=== PATIENT | female | born 1950 | race Caucasian/White ===

== ENCOUNTER → 2019-12-16 14:28 | Outpatient (BNVA) | payer MEDICARE, SELFPAY | PROVIDERS: PCP Internal Medicine; Referring Provider Internal Medicine; Visit Provider Internal Medicine | DX: R07.2 Precordial pain (principal); I10 Essential (primary) hypertension; E11.8 Type 2 diabetes mellitus with unspecified complications; E78.5 Hyperlipidemia, unspecified; J44.9 Chronic obstructive pulmonary disease, unspecified; Z79.899 Other long term (current) drug therapy | CPT/HCPCS: 99214 ==

== ENCOUNTER 2019-12-28 13:46 | Outpatient (REF) | payer MEDICARE, SELFPAY ==
[2019-12-28 15:13] LABS: Blood Urea Nitrogen 22 mg/dL (9-16); Estimated Glomerular Filt Rate > 60
== END 2019-12-28 13:47 | disposition home or self-care (01) ==
LOC: HO.LAB 13:46
PROVIDERS: PCP Internal Medicine; Visit Provider Otolaryngology
DX: H90.3 Sensorineural hearing loss, bilateral (principal); H93.A3 Pulsatile tinnitus, bilateral
CPT/HCPCS: 82565; 84520

== ENCOUNTER 2020-01-11 10:15 | Outpatient (REF) | payer MEDICARE, SELFPAY ==
--- NOTE | 2020-01-11 10:19 | CT_ITS ---
EXAMINATION: CT ANGIOGRAM BRAIN WITH CONTRAST CLINICAL INFORMATION: Sensorineural hearing loss, bilateral. COMPARISON: Head CTA 04/30/2011. TECHNIQUE: Test bolus sequences followed by intravenous administration 70 mL of Omnipaque 350. Helical imaging was performed in the axial plane from the skull base to the skull vertex. Delayed postcontrast imaging of the head was also performed. The data was processed at the electroencephalograph technologist workstation for generation of MIP sequences. Angled MIPs and volume rendered reformatted images were also generated at an offline 3D workstation. This CT examination was performed using dose optimization techniques as appropriate, variously including the following: *Automated exposure control *Adjustment of mA and/or kV according to patient size (this includes techniques or standardized protocols for targeted exams where dose is matched to indication/reason for exam; i.e. extremities or head) *Use of iterative reconstruction technique DLP: 2418 mGy-cm FINDINGS: Brain: There is no intracranial hemorrhage, extra-axial collection, mass effect, or territorial infarction. The ventricles are normal in size without evidence of hydrocephalus. No significant microangiopathy is seen. On the postcontrast images, no enhancing lesion is noted. The dural venous sinuses demonstrate normal opacification. The paranasal sinuses and mastoid air cells are clear. There is hypertrophic bone involving the right more than left internal auditory canals resulting in moderate to severe narrowing of the right IAC and mild narrowing of the left IAC. Head CTA: Mild atheromatous changes are seen at the bilateral carotid siphons. Both internal carotid arteries are patent. The anterior and middle cerebral arteries appear patent. The bilateral vertebral arteries and basilar artery appear patent. arts manager appear patent. A 2 mm infundibulum versus aneurysm is seen arising from the undersurface of the communicating segment of the right internal carotid artery best seen on series 12 image 85/148. No abnormal vessels are seen within the posterior fossa suggest the presence of a dural arteriovenous fistula. No enlarged ECA branch vessels are seen. CT/CT angio head IMPRESSION: No acute intracranial abnormality identified. No hemorrhage or infarction. Hypertrophic bone is seen involving the bilateral internal auditory canals with associated moderate to severe narrowing on the right and mild narrowing on the left. Normal appearance of the intracranial arteries without significant stenosis. 2 mm infundibulum versus aneurysm seen arising from the undersurface of the communicating segment of the right internal carotid artery.
[2020-01-11] MEDS: iohexoL 350 MG/ML 100 ML INFUS..BTL 70 ML IV (11:58)
== END 2020-01-11 10:16 | disposition home or self-care (01) ==
LOC: HO.CT 10:15
PROVIDERS: PCP Internal Medicine; Visit Provider Otolaryngology
DX: H90.3 Sensorineural hearing loss, bilateral (principal); H93.A3 Pulsatile tinnitus, bilateral
CPT/HCPCS: 70496; Q9967

== ENCOUNTER 2020-01-23 17:24 | Emergency (ER) | payer MEDICARE, SELFPAY ==
[2020-01-23 19:02] VITALS: BP 166/70; PULSE 84; RESP 16; TEMP 37.1; O2SAT 100; BMI 39.1
--- NOTE | 2020-01-23 19:43 | ED.EAR ---
HPI - Ear Problem General Chief complaint: Animal Bite Stated complaint: tick in ear Time Seen by Provider: 01/23/20 19:43 Source: patient Mode of arrival: ambulatory Limitations: no limitations History of Present Illness HPI Narrative: Outside work she has slight discomfort in her right ear question she got a piece of wood or a tick in there here for a check. No discomfort at this time. No discharge. No fever. No headache. No rash or swelling. Treatment prior to arrival: none Related Data Home Medications Medication Instructions Recorded Confirmed cholecalciferol (vitamin D3) 50 50 mcg PO DAILY 12/16/19 12/16/19 mcg (2,000 unit) capsule dulaglutide 1.5 mg/0.5 mL mg SUBCUT 12/16/19 12/16/19 subcutaneous pen injector levothyroxine 112 mcg tablet 112 mcg PO DAILY 12/16/19 12/16/19 lisinopril 40 mg tablet 40 mg PO DAILY 12/16/19 12/16/19 metformin 500 mg tablet,extended 1,000 mg PO BID 12/16/19 12/16/19 release 24 hr simvastatin 5 mg tablet 5 mg PO BEDTIME 12/16/19 12/16/19 tiotropium bromide 18 mcg capsule 1 cap INHALATION DAILY 12/16/19 12/16/19 with inhalation device Previous Rx's Medication Instructions Recorded amlodipine 10 mg tablet 10 mg PO DAILY 90 Days #90 tab 01/18/20 Allergies Allergy/AdvReac Type Severity Reaction Status Date / Time codeine [CODEINE] Allergy Unknown NAUSEA & Verified 12/16/19 14:52 VOMITING morphine Allergy Unknown UNKNOWN Verified 12/16/19 14:52 oxycodone [OxyContin] Allergy Unknown UNKNOWN Verified 12/16/19 14:52 Review of Systems Review of Systems: Constitutional: No Weight loss, No Fever, No Chills, No Night Sweats, No Fatigue, No Malaise ENT/Mouth: No Hearing loss, No Ear Pain, No Nasal Congestion, No Sinus Pain, No Hoarseness, No sore throat, No Rhinorrhea, No Swallowing Difficulty Eyes: No Eye Pain, No Swelling, No Redness, No Foreign Body, No Discharge, No Vision Changes Cardiovascular: No Chest Pain, No SOB, No Dyspnea on Exertion, No Orthopnea, No Edema, No Palpitations Respiratory: No Cough, No Sputum, No Wheezing, No Smoke Exposure, No Dyspnea Gastrointestinal: No Nausea, No Vomiting, No Diarrhea, No Constipation, No abdominal Pain, No Hematochezia, No Melena Skin: No Skin Lesions, No rash Neuro: No Weakness, No Numbness, No Paresthesias, No Loss of Consciousness, No Dizziness, No Headache Psych: No Anxiety/Panic Heme/Lymph: No Bruising, No Bleeding,No Lymphadenopathy Endocrine: No Polyuria, No Polydipsia, No Temperature Intolerance Yes all other systems are reviewed and are negative PMFSH Past Medical History Medical History (Updated 01/23/20 @ 19:47 by Bright Christensen NP) Chronic obstructive pulmonary disease, unspecified Essential hypertension Other and unspecified hyperlipidemia Precordial chest pain Type 2 diabetes mellitus with unspecified complications Surgical History History of section History of hysterectomy History of thyroidectomy Family History Family History Father No problems noted. Mother No problems noted. Social History Social History Alcohol intake: never Smoking Status: Never smoker Smoked in Last 30 Days: No Use of substances other than those prescribed or required for medical reasons: No Advance Directives: No Advance Directives Information Provided: Yes Physical Exam Vital Signs: Vital Signs: Last Vital Signs Temp 98.7 F 01/23/20 19:02 Pulse 84 01/23/20 19:02 Resp 16 01/23/20 19:02 BP 166/70 H 01/23/20 19:02 Pulse Ox 100 01/23/20 19:02 Body Mass Index 39.1 Reviewed Const: General: cooperative and healthy appearing; No acute distress or intoxicated appearing Nutritional Appearance: average body habitus Orientation/consciousness: patient oriented x3 HENMT: Head: Yes normal to inspection Ears: hearing grossly normal bilaterally Eyes: General: appearance normal, both eyes and all related structures Visual Cabrera: normal visual cabrera by confrontation Neck: Neck: Yes normal visual inspection and No tender Thyroid: Thyroid normal Chest: Chest palpation & inspection: normal inspection of the chest Resp: Effort & Inspection: normal respiratory effort Neuro: General: patient oriented x3 Extrem: General: Yes normal to inspection Course Course Course Narrative: No acute infection of the ear, no foreign body. Discharge Plan Discharge Clinical Impression: Acute otalgia, Normal exam Patient Disposition: Home, Self-Care Instructions: Earache (ED) Prescriptions: No Action amlodipine 10 mg tablet 10 mg PO DAILY 90 Days Qty: 90 RF: 1 metformin 500 mg tablet extended release 24 hr 1,000 mg PO BID RF: 0 Trulicity 1.5 mg/0.5 mL pen injector subcut RF: 0 Spiriva with HandiHaler 18 mcg capsule, w/inhalation device 1 cap inhalation DAILY RF: 0 levothyroxine 112 mcg tablet 112 mcg PO DAILY RF: 0 lisinopril 40 mg tablet 40 mg PO DAILY RF: 0 simvastatin 5 mg tablet 5 mg PO BEDTIME RF: 0 cholecalciferol (vitamin D3) 50 mcg (2,000 unit) capsule 50 mcg PO DAILY RF: 0 Referrals: Giovanni Burnette MD [Primary Care Provider] - 1 week
== END 2020-01-23 19:54 | disposition home or self-care (01) ==
PROVIDERS: Emergency Provider Internal Medicine; PCP Internal Medicine
DX: H92.01 Otalgia, right ear (principal); I10 Essential (primary) hypertension; Z79.899 Other long term (current) drug therapy
CPT/HCPCS: 99282; 99284

== ENCOUNTER 2020-03-08 09:03 | Outpatient (REF) | payer MEDICARE, SELFPAY ==
[2020-03-08 10:03] LABS: MANUAL DIFF FLAG NO
[2020-03-08 10:07] LABS: Basophils Absolute Auto 0.1 X10*3/uL (0.0-0.2); Basophils Percent Auto 0.7 % (0-2); Eosinophils Absolute Auto 0.3 X10*3/uL (0.0-0.4); Eosinophils Percent Auto 3.2 % (0-4); Hematocrit 39.9 % (37-47); Hemoglobin 12.9 g/dl (12.0-16.0); Imm Gran Abs Auto 0.04 X10*3/uL (0.00-0.03); Imm Gran Pct Auto 0.4 % (0.0-0.4); Lymphocytes Absolute Auto 2.6 X10*3/uL (1.2-4.9); Lymphocytes Percent Auto 27.9 % (20-40); Mean Corpuscular HGB Conc 32.3 g/dl (31.0-35.0); Mean Corpuscular Volume 83.6 fL (80-98); Mean Platelet Volume 10.1 fL (9.4-12.3); Monocytes Absolute Auto 0.4 X10*3/uL (0.1-1.2); Monocytes Percent Auto 4.7 % (2-11); Neutrophils Absolute Auto 5.8 X10*3/uL (2.0-8.3); Neutrophils Percent Auto 63.1 % (45-73); Platelet Count 345 X10*3/uL (160-400); Red Blood Count 4.77 X10*6/uL (4.20-5.50); White Blood Count 9.2 X10*3/uL (4.8-10.8)
[2020-03-08 10:14] LABS: Estimated Average Glucose 140 mg/dL; Hemoglobin A1c % 6.5 %
[2020-03-08 10:36] LABS: Creatinine Urine 92.83 mg/dL; Glucose Urine UA NEG (NEG); Leukocyte Esterase Urine NEG (NEG); Nitrite Urine NEG (NEG); PH 6.5 (5.0-8.0); Specific Gravity - Urine 1.025 (1.005-1.025); Urine Blood NEG (NEG); Urine Ketones NEG (NEG); Urine Protein NEG (NEG-TRACE)
[2020-03-08 10:46] LABS: Alanine Aminotransferase 25 U/L (0-31); Albumin Level 4.4 g/dL (3.5-5.0); Alkaline Phosphatase 70 U/L (39-117); Anion Gap 14 (12-20); Aspartate Amino Transferase 14 U/L (5-31); Bilirubin Total 0.4 mg/dL (0.0-1.0); Blood Urea Nitrogen 19 mg/dL (9-16); Calcium 9.3 mg/dL (8.4-10.2); Carbon Dioxide 23 mmol/L (22-29); Chloride 106 mmol/L (96-108); Cholesterol 155 mg/dL; Estimated Glomerular Filt Rate > 60; Glucose Fasting 133 mg/dL (60-99); HDL Cholesterol 46 mg/dL; LDL Cholesterol Calculated 94 mg/dl; Potassium 4.6 mmol/l (3.3-5.1); Sodium 138 mmol/L (135-145); Total Protein 6.7 g/dL (6.5-8.0); Triglycerides 78 mg/dL
[2020-03-08 10:48] LABS: Appearance Urine CLEAR; Color Urine YELLOW
[2020-03-08 10:57] LABS: Free T4 (Free Thyroxine) 1.18 ng/dL (0.71-1.85); Thyroid Stimulating Hormone 1.36 uIU/mL (0.32-4.0)
[2020-03-08 11:05] LABS: RBC Urine 0 /HPF (0); Squamous Epithelial Cell Urine 1+ /LPF; WBC Urine 0-2 /HPF (0-4)
== END 2020-03-08 09:04 | disposition home or self-care (01) ==
LOC: HO.10HDL 09:03
PROVIDERS: PCP Internal Medicine; Visit Provider Internal Medicine
DX: E11.9 Type 2 diabetes mellitus without complications (principal); E78.00 Pure hypercholesterolemia, unspecified; I10 Essential (primary) hypertension; E03.9 Hypothyroidism, unspecified; Z85.850 Personal history of malignant neoplasm of thyroid; E66.9 Obesity, unspecified; J44.9 Chronic obstructive pulmonary disease, unspecified; M85.80 Other specified disorders of bone density and structure, unspecified site; E55.9 Vitamin D deficiency, unspecified
CPT/HCPCS: 36415; 80053; 80061; 81001; 82043; 82306; 83036; 84439; 84443; 85025

== ENCOUNTER → 2020-03-21 12:53 | Outpatient (BNVA) | payer MEDICARE, SELFPAY | PROVIDERS: PCP Internal Medicine; Visit Provider Internal Medicine | DX: R07.2 Precordial pain (principal); I10 Essential (primary) hypertension; E11.8 Type 2 diabetes mellitus with unspecified complications; E78.5 Hyperlipidemia, unspecified; J44.9 Chronic obstructive pulmonary disease, unspecified | CPT/HCPCS: 99212 ==

== ENCOUNTER 2020-04-07 08:30 | Outpatient (REF) | payer MEDICARE, SELFPAY ==
[2020-04-07 10:38] LABS: Alanine Aminotransferase 15 U/L (0-31); Albumin Level 4.3 g/dL (3.5-5.0); Alkaline Phosphatase 64 U/L (39-117); Anion Gap 15 (12-20); Aspartate Amino Transferase 11 U/L (5-31); Bilirubin Total 0.5 mg/dL (0.0-1.0); Blood Urea Nitrogen 18 mg/dL (9-16); Calcium 9.1 mg/dL (8.4-10.2); Carbon Dioxide 23 mmol/L (22-29); Chloride 107 mmol/L (96-108); Cholesterol 139 mg/dL; Estimated Glomerular Filt Rate > 60; Glucose Fasting 129 mg/dL (60-99); HDL Cholesterol 35 mg/dL; LDL Cholesterol Calculated 81 mg/dl; Potassium 4.5 mmol/L (3.3-5.1); Sodium 140 mmol/L (135-145); Total Protein 6.6 g/dL (6.5-8.0); Triglycerides 116 mg/dL
[2020-04-07 10:48] LABS: Thyroid Stimulating Hormone 0.92 uIU/mL (0.32-4.0); Vitamin D 25-OH Total 46.3 ng/mL (>30)
[2020-04-07 10:58] LABS: Creatinine Urine 106.56 mg/dL; Microalbum/Creatinine Ratio Ur 11.2 ug/mg cr
[2020-04-08 04:07] LABS: LDL Cholesterol Direct 85 mg/dL (<100)
[2020-04-13 06:22] LABS: Thyroglobulin Antibody <1 IU/mL (<=1); Thyroglobulin Level 4.1 ng/mL
== END 2020-04-07 08:31 | disposition home or self-care (01) ==
LOC: HO.10HDL 08:30
PROVIDERS: Visit Provider Internal Medicine Endocrinology, Diabetes & Metabolism
DX: E11.9 Type 2 diabetes mellitus without complications (principal); C73 Malignant neoplasm of thyroid gland; M85.88 Other specified disorders of bone density and structure, other site
CPT/HCPCS: 36415; 80053; 80061; 82043; 82306; 83721; 84432; 84439; 84443; 86800

== ENCOUNTER → 2020-04-13 07:32 | Outpatient (BNVA) | payer MEDICARE, SELFPAY | PROVIDERS: PCP Internal Medicine; Visit Provider Internal Medicine Endocrinology, Diabetes & Metabolism | DX: E11.9 Type 2 diabetes mellitus without complications (principal); E89.0 Postprocedural hypothyroidism; E78.00 Pure hypercholesterolemia, unspecified; E55.9 Vitamin D deficiency, unspecified; E66.9 Obesity, unspecified; M85.89 Other specified disorders of bone density and structure, multiple sites; I10 Essential (primary) hypertension; Z85.850 Personal history of malignant neoplasm of thyroid | CPT/HCPCS: 82947; 99212 ==

== ENCOUNTER 2020-09-09 14:22 | Outpatient (REF) | payer MEDICARE, SELFPAY ==
--- NOTE | ~2020-09-09 | US_ITS ---
EXAMINATION: US THYROID CLINICAL INFORMATION: Malignant neoplasm of thyroid COMPARISON: Ultrasound thyroid soft tissue neck 07/17/2019 TECHNIQUE: Linear transducer grayscale and color Doppler examination with attention to the region of the thyroid. FINDINGS: SIZE: Measurements of the thyroid lobes and nodules are given in sagittal, anteroposterior and transverse dimensions respectively. Right Thyroid Lobe: Right thyroid lobe has been removed. Left Thyroid Lobe: 3.6 x 1.4 x 0.96 cm, volume 2.6 mL. Previously it measured 2.2 x 1.0 x 1.3 cm and 1.4 mL volume. Parenchyma: The gland echotexture is heterogeneous. Thyroid vascularity is normal. Isthmus: 0.27 cm in maximum AP dimension. Estimated total number of nodules greater than or equal to 1 cm: 0. Enterprise Security Architect nodules are described as follows: 1. Location: [Left Midpole. Size: 1.1 x 0.82 x 0.76 cm, volume 0.36 mL. Previously measured 0.90 x 0.70 x 0.70 cm and 0.23 mL volume. Nodule characteristics: Composition: Mixed cystic and solid (1). Echogenicity: Hypoechoic Shape: Wider Margins: Smooth (0). Echogenic Foci: None (0). ACR TI-RADS total points: 4 ACR TI-RADS category: 4 2. Location: Midpole. Size: 0.95 x 0.68 x 0.59 cm, volume 0.20 mL. Previously not visualized. Nodule characteristics: Composition: Mixed cystic and solid (1). Echogenicity: Undermined Shape: Wider Margins: Smooth (0). Echogenic Foci: None (0). ACR TI-RADS total points: 2 ACR TI-RADS category: 2 NODES: No lymphadenopathy is seen in the tissue surrounding the thyroid gland. US/US thyroid IMPRESSION: Subcentimeter thyroid nodules as described above. One of the midpole nodules is stable and a second nodule subcentimeter is new. Recommend continued follow-up. ACR TI-RADS RECOMMENDATION REFERENCE: Ultrasound-guided fine-needle aspiration, followup ultrasound, no further follow up. * TR1 (0 point) and TR 2 (2 points): No FNA or follow up * TR3 (3 points): FNA if more than or equal to 2.5 cm in maximum dimension, followup ultrasound in 1, 3 and 5 years if 1.5 to 2.4 cm in maximum dimension. * TR4 (4-6 points): FNA if more than or equal to 1.5 cm in maximum dimension, followup ultrasound in 1, 2, 3 and 5 years if 1 to 1.4 cm in maximum dimension. * TR5 (more than or equal to 7 points): FNA if more than or equal to 1 cm in maximum dimension, followup ultrasound every year for 5 years if 0.5 to 0.9 cm in maximum dimension. * TR3, TR4 or TR5 nodules that are below the size threshold for follow up receive no follow up.
== END 2020-09-09 14:23 | disposition home or self-care (01) ==
LOC: HO.HMGCX 14:22
PROVIDERS: PCP Internal Medicine; Visit Provider Internal Medicine Endocrinology, Diabetes & Metabolism
DX: Z85.850 Personal history of malignant neoplasm of thyroid (principal)
CPT/HCPCS: 76536

== ENCOUNTER 2020-09-16 08:25 | Outpatient (REF) | payer MEDICARE, SELFPAY ==
[2020-09-16 10:01] LABS: Free T4 (Free Thyroxine) 1.28 ng/dL (0.71-1.85); Thyroid Stimulating Hormone 0.78 uIU/mL (0.32-4.0)
[2020-09-20 01:02] LABS: Thyroglobulin Antibody <1 IU/mL (<=1)
[2020-09-20 04:51] LABS: Thyroglobulin Level 3.9 ng/mL
== END 2020-09-16 08:26 | disposition home or self-care (01) ==
LOC: HO.LAB 08:25
PROVIDERS: Internal Medicine Endocrinology, Diabetes & Metabolism; PCP Internal Medicine; Visit Provider Internal Medicine
DX: Z85.850 Personal history of malignant neoplasm of thyroid (principal)
CPT/HCPCS: 36415; 84432; 84439; 84443; 86800

== ENCOUNTER → 2020-09-19 08:09 | Outpatient (BNVA) | payer MEDICARE, SELFPAY | PROVIDERS: PCP Internal Medicine; Visit Provider Internal Medicine Endocrinology, Diabetes & Metabolism | DX: E11.9 Type 2 diabetes mellitus without complications (principal); E89.0 Postprocedural hypothyroidism; E78.00 Pure hypercholesterolemia, unspecified; E55.9 Vitamin D deficiency, unspecified; E66.9 Obesity, unspecified; I10 Essential (primary) hypertension; M85.89 Other specified disorders of bone density and structure, multiple sites; Z85.850 Personal history of malignant neoplasm of thyroid | CPT/HCPCS: 82947; 99212 ==

== ENCOUNTER 2020-09-27 09:11 | Outpatient (REF) | payer MEDICARE, SELFPAY ==
[2020-09-27 10:12] LABS: Glucose Urine UA NEG (NEG); Leukocyte Esterase Urine NEG (NEG); Nitrite Urine NEG (NEG); PH 6.5 (5.0-8.0); Urine Blood NEG (NEG); Urine Ketones NEG (NEG); Urine Protein NEG (NEG-TRACE)
[2020-09-27 10:13] LABS: Appearance Urine CLEAR; Color Urine YELLOW
[2020-09-27 10:17] LABS: MANUAL DIFF FLAG NO
[2020-09-27 10:26] LABS: Basophils Absolute Auto 0.1 X10*3/uL (0.0-0.2); Basophils Percent Auto 0.6 % (0-2); Eosinophils Absolute Auto 0.2 X10*3/uL (0.0-0.4); Eosinophils Percent Auto 2.1 % (0-4); Hematocrit 38.5 % (37-47); Hemoglobin 12.3 g/dl (12.0-16.0); Imm Gran Abs Auto 0.07 X10*3/uL (0.00-0.03); Imm Gran Pct Auto 0.7 % (0.0-0.4); Lymphocytes Absolute Auto 2.7 X10*3/uL (1.2-4.9); Lymphocytes Percent Auto 27.3 % (20-40); Mean Corpuscular HGB Conc 31.9 g/dl (31.0-35.0); Mean Corpuscular Hemoglobin 26.5 pg (27.0-33.0); Mean Corpuscular Volume 82.8 fL (80-98); Mean Platelet Volume 10.3 fL (9.4-12.3); Monocytes Absolute Auto 0.5 X10*3/uL (0.1-1.2); Monocytes Percent Auto 4.9 % (2-11); Neutrophils Absolute Auto 6.4 X10*3/uL (2.0-8.3); Neutrophils Percent Auto 64.4 % (45-73); Platelet Count 316 X10*3/uL (160-400); Red Blood Count 4.65 X10*6/uL (4.20-5.50); Red Cell Distribution Width 14.2 % (11.0-16.0); White Blood Count 9.9 X10*3/uL (4.8-10.8)
[2020-09-27 10:40] LABS: Anion Gap 11 (12-20); Blood Urea Nitrogen 17 mg/dL (9-16); Calcium 9.1 mg/dL (8.4-10.2); Carbon Dioxide 24 mmol/L (22-29); Chloride 108 mmol/L (96-108); Cholesterol 146 mg/dL; Estimated Glomerular Filt Rate > 60; Glucose Fasting 140 mg/dL (60-99); HDL Cholesterol 42 mg/dL; LDL Cholesterol Calculated 85 mg/dl; Potassium 4.3 mmol/L (3.3-5.1); Sodium 139 mmol/L (135-145); Triglycerides 98 mg/dL
[2020-09-27 10:51] LABS: Creatinine Urine 87.87 mg/dL; Microalbum/Creatinine Ratio Ur 10.2 ug/mg cr
[2020-09-27 10:56] LABS: RBC Urine 0-2 /HPF (0); Renal Epithelial Cells Urine TRACE /LPF; Squamous Epithelial Cell Urine 1+ /LPF; WBC Urine 0-2 /HPF (0-4)
[2020-09-27 11:04] LABS: TSH reflex Free T4 0.89 uIU/mL (0.32-4.0)
== END 2020-09-27 09:12 | disposition home or self-care (01) ==
LOC: HO.LAB 09:11
PROVIDERS: PCP Internal Medicine; Visit Provider Internal Medicine
DX: E89.0 Postprocedural hypothyroidism (principal); E11.8 Type 2 diabetes mellitus with unspecified complications; E78.00 Pure hypercholesterolemia, unspecified; I10 Essential (primary) hypertension; E78.5 Hyperlipidemia, unspecified
CPT/HCPCS: 36415; 80048; 80061; 81001; 82043; 84443; 85025

== ENCOUNTER 2021-01-25 08:27 | Outpatient (REF) | payer MEDICARE, SELFPAY ==
[2021-01-25 10:14] LABS: MANUAL DIFF FLAG NO
[2021-01-25 10:25] LABS: Basophils Absolute Auto 0.1 X10*3/uL (0.0-0.2); Basophils Percent Auto 0.7 % (0-2); Eosinophils Absolute Auto 0.3 X10*3/uL (0.0-0.4); Eosinophils Percent Auto 3.5 % (0-4); Hematocrit 37.8 % (37.0-47.0); Hemoglobin 12.2 g/dl (12.0-16.0); Imm Gran Abs Auto 0.04 X10*3/uL (0.00-0.03); Imm Gran Pct Auto 0.5 % (0.0-0.4); Lymphocytes Absolute Auto 2.8 X10*3/uL (1.2-4.9); Lymphocytes Percent Auto 32.5 % (20-40); Mean Corpuscular HGB Conc 32.3 g/dl (31.0-35.0); Mean Corpuscular Hemoglobin 26.5 pg (27.0-33.0); Mean Corpuscular Volume 82.2 fL (80.0-98.0); Monocytes Absolute Auto 0.4 X10*3/uL (0.1-1.2); Neutrophils Absolute Auto 4.9 x10*3/uL (2.0-8.3); Neutrophils Percent Auto 57.8 % (45-73); Platelet Count 297 X10*3/uL (160-400); White Blood Count 8.5 X10*3/uL (4.8-10.8)
[2021-01-25 10:28] LABS: Appearance Urine CLEAR; Color Urine YELLOW; Glucose Urine UA NEG (NEG); Leukocyte Esterase Urine NEG (NEG); Nitrite Urine NEG (NEG); PH 5.5 (5.0-8.0); Specific Gravity - Urine 1.025 (1.005-1.025); Urine Blood NEG (NEG); Urine Ketones NEG (NEG); Urine Protein NEG (NEG-TRACE)
[2021-01-25 10:53] LABS: Estimated Average Glucose 143 mg/dL; Hemoglobin A1c % 6.6 %
[2021-01-25 10:57] LABS: Creatinine Urine 98.65 mg/dL; Microalbum/Creatinine Ratio Ur 12.1 ug/mg cr
[2021-01-25 11:02] LABS: Alanine Aminotransferase 17 U/L (0-31); Albumin Level 4.2 g/dL (3.5-5.0); Alkaline Phosphatase 65 U/L (39-117); Anion Gap 11 (12-20); Aspartate Amino Transferase 13 U/L (5-31); Bilirubin Total 0.4 mg/dL (0.0-1.0); Blood Urea Nitrogen 17 mg/dL (9-16); Calcium 9.3 mg/dL (8.4-10.2); Carbon Dioxide 23 mmol/L (22-29); Chloride 109 mmol/L (96-108); Cholesterol 127 mg/dL; Estimated Glomerular Filt Rate > 60; Glucose Fasting 124 mg/dL (60-99); HDL Cholesterol 33 mg/dL; LDL Cholesterol Calculated 74 mg/dl; Potassium 4.2 mmol/L (3.3-5.1); Sodium 139 mmol/L (135-145); Total Protein 6.5 g/dL (6.5-8.0); Triglycerides 102 mg/dL
[2021-01-25 11:18] LABS: Free T4 (Free Thyroxine) 1.27 ng/dL (0.71-1.85); Thyroid Stimulating Hormone 0.89 uIU/mL (0.32-4.0); Vitamin D 25-OH Total 44.8 ng/mL (>30)
== END 2021-01-25 08:28 | disposition home or self-care (01) ==
LOC: HO.10HDL 08:27
PROVIDERS: Visit Provider Internal Medicine
DX: E03.9 Hypothyroidism, unspecified (principal); E55.9 Vitamin D deficiency, unspecified; E78.00 Pure hypercholesterolemia, unspecified; I10 Essential (primary) hypertension; E11.9 Type 2 diabetes mellitus without complications
CPT/HCPCS: 36415; 80053; 80061; 81003; 82043; 82306; 83036; 84439; 84443; 85025

== ENCOUNTER 2021-02-16 13:18 | Outpatient (REF) | payer MEDICARE, SELFPAY ==
[2021-02-18 04:57] LABS: Lyme Abs Screen <0.90 index
== END 2021-02-16 13:19 | disposition home or self-care (01) ==
LOC: HO.LAB 13:18
PROVIDERS: PCP Internal Medicine; Visit Provider Nurse Practitioner Family
DX: S30.860A Insect bite (nonvenomous) of lower back and pelvis, initial encounter (principal); W57.XXXA Bitten or stung by nonvenomous insect and other nonvenomous arthropods, initial encounter
CPT/HCPCS: 36415; 86617; 86618

== ENCOUNTER → 2021-04-11 09:24 | Outpatient (BNVA) | payer MEDICARE, SELFPAY | PROVIDERS: PCP Internal Medicine; Referring Provider Internal Medicine; Visit Provider Internal Medicine | DX: R07.2 Precordial pain (principal); I10 Essential (primary) hypertension; E11.8 Type 2 diabetes mellitus with unspecified complications; E78.5 Hyperlipidemia, unspecified; E66.01 Morbid (severe) obesity due to excess calories; Z68.38 Body mass index [BMI] 38.0-38.9, adult | CPT/HCPCS: 93005; 99212 ==

== ENCOUNTER 2021-05-26 09:52 | Outpatient (REF) | payer MEDICARE, SELFPAY ==
[2021-05-26 10:20] LABS: MANUAL DIFF FLAG NO
[2021-05-26 10:59] LABS: Basophils Absolute Auto 0.1 X10*3/uL (0.0-0.2); Basophils Percent Auto 0.6 % (0-2); Eosinophils Absolute Auto 0.2 X10*3/uL (0.0-0.4); Eosinophils Percent Auto 1.8 % (0-4); Hematocrit 40.5 % (37.0-47.0); Hemoglobin 12.7 g/dl (12.0-16.0); Imm Gran Abs Auto 0.04 X10*3/uL (0.00-0.03); Imm Gran Pct Auto 0.4 % (0.0-0.4); Lymphocytes Absolute Auto 2.9 X10*3/uL (1.2-4.9); Lymphocytes Percent Auto 32.4 % (20-40); Mean Corpuscular HGB Conc 31.4 g/dl (31.0-35.0); Mean Corpuscular Hemoglobin 26.3 pg (27.0-33.0); Mean Platelet Volume 10.3 fL (9.4-12.3); Monocytes Absolute Auto 0.5 X10*3/uL (0.1-1.2); Monocytes Percent Auto 5.3 % (2-11); Neutrophils Absolute Auto 5.4 x10*3/uL (2.0-8.3); Neutrophils Percent Auto 59.5 % (45-73); Platelet Count 331 X10*3/uL (160-400); Red Blood Count 4.82 X10*6/uL (4.20-5.50); Red Cell Distribution Width 14.1 % (11.0-16.0); White Blood Count 9.1 X10*3/uL (4.8-10.8)
[2021-05-26 11:41] LABS: Estimated Average Glucose 154 mg/dL
[2021-05-26 11:46] LABS: Appearance Urine CLEAR; Color Urine YELLOW; Glucose Urine UA NEG (NEG); Leukocyte Esterase Urine NEG (NEG); Nitrite Urine NEG (NEG); Urine Blood NEG (NEG); Urine Ketones NEG (NEG); Urine Protein NEG (NEG-TRACE)
[2021-05-26 12:21] LABS: Free T4 (Free Thyroxine) 1.38 ng/dL (0.71-1.85); Vitamin D 25-OH Total 46.9 ng/mL (>30)
[2021-05-26 12:33] LABS: Alanine Aminotransferase 18 U/L (0-31); Albumin Level 4.3 g/dL (3.5-5.0); Alkaline Phosphatase 71 U/L (39-117); Anion Gap 14 (12-20); Aspartate Amino Transferase 13 U/L (5-31); Bilirubin Total 0.7 mg/dL (0.0-1.0); Blood Urea Nitrogen 15 mg/dL (9-16); Calcium 9.6 mg/dL (8.4-10.2); Carbon Dioxide 23 mmol/L (22-29); Chloride 107 mmol/L (96-108); Cholesterol 142 mg/dL; Estimated Glomerular Filt Rate > 60; Glucose Fasting 130 mg/dL (60-99); HDL Cholesterol 39 mg/dL; LDL Cholesterol Calculated 86 mg/dl; Potassium 4.8 mmol/L (3.3-5.1); Sodium 139 mmol/L (135-145); Total Protein 6.7 g/dL (6.5-8.0); Triglycerides 89 mg/dL
[2021-05-26 12:46] LABS: Creatinine Urine 103.09 mg/dL; Microalbum/Creatinine Ratio Ur 9.7 ug/mg cr
[2021-05-26 13:03] LABS: Thyroid Stimulating Hormone 0.81 uIU/mL (0.32-4.0)
== END 2021-05-26 09:53 | disposition home or self-care (01) ==
LOC: HO.LAB 09:52
PROVIDERS: PCP Internal Medicine; Visit Provider Internal Medicine
DX: E03.9 Hypothyroidism, unspecified (principal); E78.00 Pure hypercholesterolemia, unspecified; E11.9 Type 2 diabetes mellitus without complications; E55.9 Vitamin D deficiency, unspecified; I10 Essential (primary) hypertension
CPT/HCPCS: 36415; 80053; 80061; 81003; 82043; 82306; 83036; 84439; 84443; 85025

== ENCOUNTER 2021-06-15 09:30 | Outpatient (REF) | payer MEDICARE, SELFPAY ==
--- NOTE | ~2021-06-15 | MM_ITS ---
EXAMINATION: BONE DENSITOMETRY CLINICAL INDICATION: Menopausal female climacteric states. COMPARISON: Previous BD dated 03/05/2019 and baseline BD dated 11/18/2015. TECHNIQUE: Using a Keynoir DXA System (software version: 13.1) manufactured by [employer], dual-energy x-ray absorptiometry was performed of the lumbar spine and left hip. The images are of good technical quality. Summary results are attached. FINDINGS: AP SPINE L1-L4: Current: BMD 0.992 g/cm2, Z-score -0.8, T-score -1.6, osteopenia, 1.0% increase from previous, 7.8% increase from baseline (<5% change is not significant). Prior: BMD 0.982 g/cm2. Baseline: BMD 0.920 g/cm2. LEFT FEMUR, NECK: Current: BMD 0.816 g/cm2, Z-score -0.4, T-score -1.6, osteopenia. Prior: BMD 0.847 g/cm2. Baseline: BMD 0.897 g/cm2. LEFT FEMUR, TOTAL: Current: BMD 0.961 g/cm2, Z-score 0.6, T-score -0.4, normal, 5.1% decrease from previous, 5.6% decrease from baseline (<5% change is not significant). Prior: BMD 1.013 g/cm2. Baseline: BMD 1.018 g/cm2. IDENTIFIED RISK FACTORS: Osteoporosis, height loss, low calcium intake, family history (parental hip fracture), menopause, hysterectomy, bilateral oophorectomy. HISTORY OF FRACTURE: None listed. MEDICATIONS: Vitamin D. MM/XR DEXA axial skeleton IMPRESSION: 1. DIAGNOSIS: Osteopenia based on the lowest T-score value of -1.6 in the femoral neck and lumbar spine applying World Health Organization criteria. 2. 10-YEAR FRACTURE RISK PREDICTION, FRAX: Major osteoporotic fracture (clinical spine, forearm, hip or shoulder) 15.2%. Hip fracture 4.7%. 3. Treatment Recommendations: NOF guidelines recommend consideration for treatment in postmenopausal women and men age 50 and older presenting with the following: -A hip or vertebral (clinical or morphometric) fracture. -T-score less than or equal to -2.5 at the femoral neck or spine after appropriate evaluation to exclude secondary causes. -Low bone mass at the hip or spine and a 10-year fracture probability by FRAX of greater than or equal to 3% for hip fracture or greater than or equal to 20% for major osteoporotic fracture based on the [place] adapted WHO algorithm. 4. Other Recommendations: All treatment decisions require clinical judgment and consideration of individual patient factors, including patient preferences, comorbidities, previous drug use, risk factors not captured in the FRAX model (e.g. frailty, falls, vitamin D deficiency, increased bone turnover, interval significant decline in bone density) and possible under or overestimation of fracture risk by FRAX. Additional medical evaluation for secondary cause of low bone mineral density may be appropriate. FUTURE SCAN RECOMMENDATION: People with diagnosed cases of osteoporosis or at high risk for fracture should have regular bone mineral density tests. For patients eligible for Medicare, routine testing is allowed once every 2 years. The testing frequency can be increased to one year for patients who have rapidly progressing disease, those who are receiving or discontinuing medical therapy to restore bone mass, or have additional risk factors.
== END 2021-06-15 09:31 | disposition home or self-care (01) ==
LOC: HO.MAMMO 09:30
PROVIDERS: PCP Internal Medicine; Visit Provider Internal Medicine
DX: Z13.820 Encounter for screening for osteoporosis (principal); Z78.0 Asymptomatic menopausal state; M85.89 Other specified disorders of bone density and structure, multiple sites; Z79.83 Long term (current) use of bisphosphonates
CPT/HCPCS: 77080

== ENCOUNTER → 2021-07-26 10:53 | Outpatient (BNVA) | payer MEDICARE, SELFPAY | PROVIDERS: PCP Internal Medicine; Visit Provider Internal Medicine Endocrinology, Diabetes & Metabolism | DX: E11.8 Type 2 diabetes mellitus with unspecified complications (principal); Z85.850 Personal history of malignant neoplasm of thyroid | CPT/HCPCS: 82947; 99212 ==

== ENCOUNTER 2021-09-08 06:39 | Outpatient (REF) | payer MEDICARE, SELFPAY ==
[2021-09-08 06:58] LABS: MANUAL DIFF FLAG NO
[2021-09-08 07:12] LABS: Basophils Absolute Auto 0.1 X10*3/uL (0.0-0.2); Basophils Percent Auto 0.7 % (0-2); Eosinophils Absolute Auto 0.2 X10*3/uL (0.0-0.4); Eosinophils Percent Auto 2.3 % (0-4); Hematocrit 38.3 % (37.0-47.0); Hemoglobin 12.2 g/dl (12.0-16.0); Imm Gran Abs Auto 0.03 X10*3/uL (0.00-0.03); Imm Gran Pct Auto 0.3 % (0.0-0.4); Lymphocytes Absolute Auto 2.9 X10*3/uL (1.2-4.9); Lymphocytes Percent Auto 29.1 % (20-40); Mean Corpuscular HGB Conc 31.9 g/dl (31.0-35.0); Mean Corpuscular Hemoglobin 26.2 pg (27.0-33.0); Mean Corpuscular Volume 82.2 fL (80.0-98.0); Mean Platelet Volume 9.8 fL (9.4-12.3); Monocytes Absolute Auto 0.6 X10*3/uL (0.1-1.2); Monocytes Percent Auto 5.5 % (2-11); Neutrophils Absolute Auto 6.2 x10*3/uL (2.0-8.3); Neutrophils Percent Auto 62.1 % (45-73); Platelet Count 312 X10*3/uL (160-400); Red Blood Count 4.66 X10*6/uL (4.20-5.50); Red Cell Distribution Width 14.5 % (11.0-16.0); White Blood Count 9.9 X10*3/uL (4.8-10.8)
[2021-09-08 07:29] LABS: Alanine Aminotransferase 16 U/L (0-31); Albumin Level 4.3 g/dL (3.5-5.0); Alkaline Phosphatase 67 U/L (39-117); Anion Gap 12 (12-20); Aspartate Amino Transferase 12 U/L (5-31); Bilirubin Total 0.2 mg/dL (0.0-1.0); Blood Urea Nitrogen 22 mg/dL (9-16); Calcium 9.3 mg/dL (8.4-10.2); Carbon Dioxide 23 mmol/L (22-29); Chloride 109 mmol/L (96-108); Cholesterol 125 mg/dL; Estimated Glomerular Filt Rate > 60; Glucose Fasting 140 mg/dL (60-99); HDL Cholesterol 36 mg/dL; LDL Cholesterol Calculated 69 mg/dl; Potassium 4.1 mmol/L (3.3-5.1); Sodium 140 mmol/L (135-145); Total Protein 6.6 g/dL (6.5-8.0); Triglycerides 101 mg/dL
[2021-09-08 07:54] LABS: TSH reflex Free T4 1.18 uIU/mL (0.32-4.0); Vitamin D 25-OH Total 45.8 ng/mL (>30)
[2021-09-08 08:08] LABS: Appearance Urine CLEAR; Color Urine STRAW; Glucose Urine UA NEG (NEG); Leukocyte Esterase Urine NEG (NEG); Nitrite Urine NEG (NEG); Urine Blood NEG (NEG); Urine Ketones NEG (NEG); Urine Protein NEG (NEG-TRACE)
[2021-09-08 08:27] LABS: Creatinine Urine 73.39 mg/dL; Microalbum/Creatinine Ratio Ur 13.6 ug/mg cr
[2021-09-08 08:42] LABS: Estimated Average Glucose 134 mg/dL; Hemoglobin A1C 149.6202 umol/L; Hemoglobin A1c % 6.3 %
== END 2021-09-08 06:40 | disposition home or self-care (01) ==
LOC: HO.LAB 06:39
PROVIDERS: PCP Internal Medicine; Visit Provider Internal Medicine
DX: E11.9 Type 2 diabetes mellitus without complications (principal); I10 Essential (primary) hypertension; E78.00 Pure hypercholesterolemia, unspecified; E55.9 Vitamin D deficiency, unspecified
CPT/HCPCS: 36415; 80053; 80061; 81003; 82043; 82306; 83036; 84443; 85025

== ENCOUNTER 2021-09-13 08:13 | Outpatient (REF) | payer MEDICARE, SELFPAY ==
[2021-09-13 08:42] LABS: IDNOW Serial# 9DB6401D
[2021-09-13 08:43] LABS: COVID-19 Test Positive (Negative)
== END 2021-09-13 08:14 | disposition home or self-care (01) ==
LOC: HO.LAB 08:13
PROVIDERS: Visit Provider Internal Medicine
DX: Z20.822 Contact with and (suspected) exposure to COVID-19 (principal)
CPT/HCPCS: 87635; C9803

== ENCOUNTER 2021-10-20 10:28 | Outpatient (REF) | payer MEDICARE, SELFPAY ==
--- NOTE | ~2021-10-20 | MM_ITS ---
EXAMINATION: MM SCREENING DIGITAL BREAST TOMOSYNTHESIS, BILATERAL CLINICAL INFORMATION: Screening. Asymptomatic. The lifetime risk of breast cancer based on the Tyrer-Cuzick Model is 4.3%. COMPARISON: Mammography: May 13, 2017 and studies dating back to May 20, 2012 TECHNIQUE: Digital breast tomosynthesis is performed in both the craniocaudal and mediolateral oblique views along with computer-aided detection (CAD). Synthesized 2D images are generated from the tomosynthesis. FINDINGS: There are scattered areas of fibroglandular density (ACR BI-RADS breast composition Category b). There are no significant masses, abnormal calcifications, or other abnormalities. MM/MM tomosynthesis screening BI IMPRESSION: No mammographic evidence of malignancy. ASSESSMENT: BI-RADS 1: Negative RECOMMENDATION: Routine annual mammography screening. This patient's information was entered into a reminder system with a target due date for their next mammogram.
== END 2021-10-20 10:29 | disposition home or self-care (01) ==
LOC: HO.MAMMO 10:28
PROVIDERS: PCP Internal Medicine; Visit Provider Nurse Practitioner Family
DX: Z12.31 Encounter for screening mammogram for malignant neoplasm of breast (principal)
CPT/HCPCS: 77063; 77067

== ENCOUNTER 2022-01-12 09:42 | Outpatient (REF) | payer MEDICARE, SELFPAY ==
[2022-01-12 09:58] LABS: MANUAL DIFF FLAG NO
[2022-01-12 10:29] LABS: Basophils Absolute Auto 0.1 X10*3/uL (0.0-0.2); Basophils Percent Auto 0.5 % (0-2); Eosinophils Absolute Auto 0.2 X10*3/uL (0.0-0.4); Eosinophils Percent Auto 1.8 % (0-4); Hematocrit 37.9 % (37.0-47.0); Hemoglobin 12.3 g/dl (12.0-16.0); Imm Gran Abs Auto 0.03 X10*3/uL (0.00-0.03); Imm Gran Pct Auto 0.3 % (0.0-0.4); Lymphocytes Absolute Auto 3.1 X10*3/uL (1.2-4.9); Lymphocytes Percent Auto 33.7 % (20-40); Mean Corpuscular HGB Conc 32.5 g/dl (31.0-35.0); Mean Corpuscular Volume 83.1 fL (80.0-98.0); Monocytes Absolute Auto 0.5 X10*3/uL (0.1-1.2); Monocytes Percent Auto 4.9 % (2-11); Neutrophils Absolute Auto 5.4 x10*3/uL (2.0-8.3); Neutrophils Percent Auto 58.8 % (45-73); Platelet Count 329 X10*3/uL (160-400); Red Blood Count 4.56 X10*6/uL (4.20-5.50); Red Cell Distribution Width 14.3 % (11.0-16.0); White Blood Count 9.2 X10*3/uL (4.8-10.8)
[2022-01-12 10:59] LABS: Appearance Urine Clear; Color Urine Yellow; Glucose Urine UA Negative (Negative); Leukocyte Esterase Urine Trace (Negative); Nitrite Urine Negative (Negative); Specific Gravity - Urine 1.025 (1.005-1.025); UMIC TRIGGER UACC YES; Urine Blood Negative (Negative); Urine Ketones Negative (Negative); Urine Protein Negative (Neg-Trace)
[2022-01-12 11:02] LABS: Creatinine Urine 113.97 mg/dL; Microalbum/Creatinine Ratio Ur 9.6 ug/mg cr
[2022-01-12 11:05] LABS: Alanine Aminotransferase 15 U/L (0-31); Albumin Level 4.3 g/dL (3.5-5.0); Alkaline Phosphatase 68 U/L (39-117); Anion Gap 15 (12-20); Aspartate Amino Transferase 13 U/L (5-31); Bilirubin Total 0.6 mg/dL (0.0-1.0); Blood Urea Nitrogen 24 mg/dL (9-16); Calcium 9.6 mg/dL (8.4-10.2); Carbon Dioxide 22 mmol/L (22-29); Chloride 107 mmol/L (96-108); Cholesterol 137 mg/dL; Estimated Glomerular Filt Rate > 60; Glucose Fasting 122 mg/dL (60-99); HDL Cholesterol 41 mg/dL; LDL Cholesterol Calculated 82 mg/dl; Potassium 4.4 mmol/L (3.3-5.1); Sodium 140 mmol/L (135-145); Total Protein 6.7 g/dL (6.5-8.0); Triglycerides 73 mg/dL
[2022-01-12 11:06] LABS: Bacteria Urine None Seen (None Seen); Hyaline Casts Urine 0-2 /LPF (0-2); RBC Urine 0-2 /HPF (0-2); Squamous Epithelial Cell Urine 0-2 /HPF (0-2); WBC Urine 0-5 /HPF (0-5)
[2022-01-12 11:10] LABS: Estimated Average Glucose 134 mg/dL; Hemoglobin A1c % 6.3 %
[2022-01-12 11:21] LABS: TSH reflex Free T4 0.66 uIU/mL (0.32-4.0)
[2022-01-12 12:48] LABS: Vitamin D 25-OH Total 53.2 ng/mL (>30)
== END 2022-01-12 09:43 | disposition home or self-care (01) ==
LOC: HO.LAB 09:42
PROVIDERS: PCP Internal Medicine; Visit Provider Internal Medicine
DX: I10 Essential (primary) hypertension (principal); E11.9 Type 2 diabetes mellitus without complications; E78.00 Pure hypercholesterolemia, unspecified; E55.9 Vitamin D deficiency, unspecified
CPT/HCPCS: 36415; 80053; 80061; 81001; 82043; 82306; 83036; 84443; 85025

== ENCOUNTER 2022-05-18 06:13 | Outpatient (REF) | payer MEDICARE, SELFPAY ==
[2022-05-18 06:26] LABS: MANUAL DIFF FLAG NO
[2022-05-18 07:44] LABS: Basophils Absolute Auto 0.1 X10*3/uL (0.0-0.2); Basophils Percent Auto 0.7 % (0-2); Eosinophils Absolute Auto 0.4 X10*3/uL (0.0-0.4); Eosinophils Percent Auto 3.7 % (0-4); Hematocrit 40.1 % (37.0-47.0); Hemoglobin 12.9 g/dl (12.0-16.0); Imm Gran Abs Auto 0.03 X10*3/uL (0.00-0.03); Imm Gran Pct Auto 0.3 % (0.0-0.4); Lymphocytes Absolute Auto 4.1 X10*3/uL (1.2-4.9); Lymphocytes Percent Auto 40.2 % (20-40); Mean Corpuscular HGB Conc 32.2 g/dl (31.0-35.0); Mean Corpuscular Volume 84.1 fL (80.0-98.0); Mean Platelet Volume 10.5 fL (9.4-12.3); Monocytes Absolute Auto 0.5 X10*3/uL (0.1-1.2); Monocytes Percent Auto 5.2 % (2-11); Neutrophils Absolute Auto 5.1 x10*3/uL (2.0-8.3); Neutrophils Percent Auto 49.9 % (45-73); Platelet Count 328 X10*3/uL (160-400); Red Blood Count 4.77 X10*6/uL (4.20-5.50); Red Cell Distribution Width 14.2 % (11.0-16.0); White Blood Count 10.3 X10*3/uL (4.8-10.8)
[2022-05-18 07:56] LABS: Estimated Average Glucose 134 mg/dL; Hemoglobin A1c % 6.3 %
[2022-05-18 08:16] LABS: Appearance Urine Clear; Color Urine Yellow; Glucose Urine UA Negative (Negative); Leukocyte Esterase Urine Negative (Negative); Nitrite Urine Negative (Negative); Urine Blood Negative (Negative); Urine Ketones Trace mg/dL (Negative); Urine Protein Negative (Neg-Trace)
[2022-05-18 08:21] LABS: Creatinine Urine 19.78 mg/dL; Microalbumin Urine < 5.0 mg/L
[2022-05-18 08:28] LABS: Alanine Aminotransferase 18 U/L (0-31); Albumin Level 4.3 g/dL (3.5-5.0); Alkaline Phosphatase 67 U/L (39-117); Anion Gap 16 (12-20); Aspartate Amino Transferase 17 U/L (5-31); Bilirubin Total 0.7 mg/dL (0.0-1.0); Blood Urea Nitrogen 20 mg/dL (9-16); Calcium 9.6 mg/dL (8.4-10.2); Carbon Dioxide 22 mmol/L (22-29); Chloride 106 mmol/L (96-108); Cholesterol 146 mg/dL; Estimated Glomerular Filt Rate > 60; Glucose Fasting 108 mg/dL (60-99); HDL Cholesterol 43 mg/dL; LDL Cholesterol Calculated 85 mg/dl; Potassium 4.5 mmol/L (3.3-5.1); Sodium 139 mmol/L (135-145); Total Protein 6.7 g/dL (6.5-8.0); Triglycerides 93 mg/dL
[2022-05-18 08:35] LABS: Free T4 (Free Thyroxine) 1.36 ng/dL (0.71-1.85); Vitamin D 25-OH Total 52.4 ng/mL (>30)
== END 2022-05-18 06:14 | disposition home or self-care (01) ==
LOC: HO.LAB 06:13
PROVIDERS: PCP Internal Medicine; Visit Provider Internal Medicine
DX: E11.9 Type 2 diabetes mellitus without complications (principal); R30.0 Dysuria; I10 Essential (primary) hypertension; E55.9 Vitamin D deficiency, unspecified; E03.9 Hypothyroidism, unspecified; E78.00 Pure hypercholesterolemia, unspecified
CPT/HCPCS: 36415; 80053; 80061; 81003; 82043; 82306; 83036; 84439; 84443; 85025

== ENCOUNTER 2022-05-22 11:42 | Outpatient (REF) | payer MEDICARE, SELFPAY ==
--- NOTE | ~2022-05-22 | XR_ITS ---
EXAMINATION: XR CHEST CLINICAL INFORMATION: R05.9 - Cough, unspecified COMPARISON: Chest radiographs 12/29/2018 TECHNIQUE: 2 views of the chest were obtained. FINDINGS: There is no airspace consolidation or groundglass opacity. Fine linear scar again noted left lateral face. The subpleural density right lateral lower zone noted on prior report 2019 is no longer demonstrated. There is minor smooth blunting right lateral costophrenic sulcus. No effusion on lateral view. The vascularity is normal. The heart is normal in size. The hilar and mediastinal contours are normal. No acute bony abnormality. Again, there are multilevel degenerative changes thoracic spine as well as ossification anterior spinal ligament likely related to diffuse idiopathic skeletal hyperostosis. XR/XR chest 2V IMPRESSION: Unremarkable exam.
== END 2022-05-22 11:43 | disposition home or self-care (01) ==
LOC: HO.XRAY 11:42
PROVIDERS: PCP Internal Medicine; Visit Provider Internal Medicine
DX: R05.9 Cough, unspecified (principal)
CPT/HCPCS: 71046

== ENCOUNTER 2022-09-17 09:16 | Outpatient (AMB) | payer MEDICARE, SELFPAY ==
--- NOTE | 2022-09-17 10:25 | AM.OFFWIN_ITS ---
Intake Vital Signs 09/17/22 10:27 Height 5 ft 2 in BP 140/80 H Blood Pressure Location Lt brachial Position Sitting Pulse 77 Pulse Source Pulse Oximeter Temp 98.5 F Temp Source Oral Pulse Oximetry (%) 97 Intake Visit Reasons: EP, ? Cellulitis Intake Note: pt is here for c/o possible infection or inflammation on bilateral legs Patient Tobacco Use Status: Never used Tobacco Allergies codeine [CODEINE] Allergy (Unknown, Verified 09/17/22 11:07) NAUSEA & VOMITING morphine Allergy (Unknown, Verified 09/17/22 11:07) UNKNOWN oxycodone [OxyContin] Allergy (Unknown, Verified 09/17/22 11:07) UNKNOWN Medication List - Last Reconciled 09/17/22 by Edwar Carter MD acetaminophen (Tylenol Extra Strength) 1,000 mg PO QID PRN amlodipine 10 mg PO DAILY 90 days blood sugar diagnostic (FreeStyle Lite Strips) As directed once a day blood-glucose meter (FreeStyle Lite Meter kit) As directed cholecalciferol (vitamin D3) 50 mcg PO DAILY 90 days diphenhydramine HCl (Benadryl) 25 mg PO BEDTIME PRN dulaglutide (Trulicity) 1.5 mg (0.5 mL) subcut QWEEK lancets As directed levothyroxine 112 mcg PO DAILY 90 days lisinopril 40 mg PO DAILY metformin ER 1,000 mg (2 x 500 mg) PO BID 90 days netarsudil-latanoprost 0.02-0.005 % drps ophthalmic (eye) simvastatin 5 mg PO QPM tiotropium bromide (Spiriva with HandiHaler) 1 cap inhalation DAILY 90 days vitamin B comp and C no.3 (B Complex Plus Vitamin C) 1 cap PO DAILY Do you need a note to return to daycare/school/sports/work: Yes HPI EP, ? Cellulitis HPI Details 72-year-old female presents to the office for a sick visit. Patient was diagnosed with poison isidro 2 weeks ago and put on a tapering dose of prednisone. Patient reports her symptoms have not completely faded. Continues to have itching and discomfort. [facility] Medical History Basal cell carcinoma of scalp Benign essential hypertension Chronic obstructive pulmonary disease, unspecified COPD (chronic obstructive pulmonary disease) Dermatitis Diabetes mellitus Essential hypertension History of endometrial cancer History of thyroid cancer Obesity (BMI 30-39.9) Obstructive sleep apnea Osteopenia Other and unspecified hyperlipidemia Post-surgical hypothyroidism Precordial chest pain Pure hypercholesterolemia Tick bite of back Type 2 diabetes mellitus with unspecified complications Vitamin D deficiency Surgical History History of section History of colonoscopy History of hysterectomy History of thyroidectomy Family History Father No problems noted. Mother No problems noted. Social History Housing: House Alcohol intake: current Alcohol intake frequency: holidays/special occasions only Patient Tobacco Use Status: Never used Tobacco e-Cigarette/Vaping Use: Never Used Second Hand Smoke Exposure: No service: No Current occupational status: retired Cognitive needs: No Hearing needs: No Vision needs: No Physical Exam Vital Signs: Last Vital Signs Temp 98.5 F 09/17/22 10:27 Pulse 77 09/17/22 10:27 BP 140/80 H 09/17/22 10:27 Pulse Ox 97 09/17/22 10:27 Skin Other: Extensive erythematous rash in both her legs, without any vesicles or pustules. Assessment & Plan Assessment & Plan (1) Contact dermatitis: Code(s): L25.9 - Unspecified contact dermatitis, unspecified cause Plan: Prednisone taper dose and hydrocortisone cream prescribed. Symptoms do not improve to follow-up here. Coding Level of Care Code Est Pt Level 3 (15748) Diagnoses Contact dermatitis L25.9
[2022-09-17 10:27] VITALS: BP 140/80; PULSE 77; TEMP 36.9; O2SAT 97
== END 2022-09-17 11:29 | disposition home or self-care (01) ==
PROVIDERS: PCP Internal Medicine; Visit Provider Internal Medicine
DX: L25.9 Unspecified contact dermatitis, unspecified cause (principal)
CPT/HCPCS: 99213

== ENCOUNTER 2022-09-25 10:15 | Outpatient (REF) | payer MEDICARE, SELFPAY ==
[2022-09-25 10:31] LABS: MANUAL DIFF FLAG NO
[2022-09-25 10:49] LABS: Appearance Urine Clear; Color Urine Yellow; Glucose Urine UA Negative (Negative); Leukocyte Esterase Urine Trace (Negative); Nitrite Urine Negative (Negative); Specific Gravity - Urine 1.015 (1.005-1.025); UMIC TRIGGER UACC YES; Urine Blood Negative (Negative); Urine Ketones Negative (Negative); Urine Protein Negative (Neg-Trace)
[2022-09-25 10:51] LABS: Basophils Absolute Auto 0.1 X10*3/uL (0.0-0.2); Basophils Percent Auto 0.6 % (0-2); Eosinophils Absolute Auto 1.2 X10*3/uL (0.0-0.4); Eosinophils Percent Auto 9.7 % (0-4); Hematocrit 39.6 % (37.0-47.0); Hemoglobin 12.5 g/dl (12.0-16.0); Imm Gran Abs Auto 0.09 X10*3/uL (0.00-0.03); Imm Gran Pct Auto 0.7 % (0.0-0.4); Lymphocytes Absolute Auto 2.6 X10*3/uL (1.2-4.9); Lymphocytes Percent Auto 20.9 % (20-40); Mean Corpuscular HGB Conc 31.6 g/dl (31.0-35.0); Mean Corpuscular Hemoglobin 26.4 pg (27.0-33.0); Mean Corpuscular Volume 83.7 fL (80.0-98.0); Mean Platelet Volume 9.9 fL (9.4-12.3); Monocytes Absolute Auto 0.6 X10*3/uL (0.1-1.2); Monocytes Percent Auto 4.8 % (2-11); Neutrophils Absolute Auto 7.8 x10*3/uL (2.0-8.3); Neutrophils Percent Auto 63.3 % (45-73); Platelet Count 274 X10*3/uL (160-400); Red Blood Count 4.73 X10*6/uL (4.20-5.50); Red Cell Distribution Width 14.2 % (11.0-16.0); White Blood Count 12.3 X10*3/uL (4.8-10.8)
[2022-09-25 10:55] LABS: Bacteria Urine None Seen (None Seen); Hyaline Casts Urine 0-2 /LPF (0-2); Squamous Epithelial Cell Urine 0-2 /HPF (0-2); WBC Urine 0-5 /HPF (0-5)
[2022-09-25 11:17] LABS: Estimated Average Glucose 146 mg/dL; Hemoglobin A1c % 6.7 %
[2022-09-25 11:40] LABS: Alanine Aminotransferase 18 U/L (0-31); Albumin Level 3.9 g/dL (3.5-5.0); Alkaline Phosphatase 62 U/L (39-117); Anion Gap 11 (12-20); Aspartate Amino Transferase 11 U/L (5-31); Bilirubin Total 0.5 mg/dL (0.0-1.0); Blood Urea Nitrogen 9 mg/dL (9-16); Calcium 9.2 mg/dL (8.4-10.2); Carbon Dioxide 25 mmol/L (22-29); Chloride 107 mmol/L (96-108); Cholesterol 136 mg/dL; Creatinine Urine 51.75 mg/dL; Estimated Glomerular Filt Rate > 60; Glucose Fasting 146 mg/dL (60-99); HDL Cholesterol 47 mg/dL; LDL Cholesterol Calculated 73 mg/dl; Microalbum/Creatinine Ratio Ur 30.9 ug/mg cr; Sodium 139 mmol/L (135-145); Total Protein 6.5 g/dL (6.5-8.0); Triglycerides 82 mg/dL
[2022-09-25 11:58] LABS: Free T4 (Free Thyroxine) 1.32 ng/dL (0.71-1.85); Thyroid Stimulating Hormone 1.37 uIU/mL (0.32-4.0); Vitamin D 25-OH Total 49.2 ng/mL (>30)
== END 2022-09-25 10:16 | disposition home or self-care (01) ==
LOC: HO.10HDL 10:15
PROVIDERS: Visit Provider Internal Medicine
DX: I10 Essential (primary) hypertension (principal); E55.9 Vitamin D deficiency, unspecified; R30.0 Dysuria; E03.9 Hypothyroidism, unspecified; E11.9 Type 2 diabetes mellitus without complications; E78.00 Pure hypercholesterolemia, unspecified
CPT/HCPCS: 36415; 80053; 80061; 81001; 82043; 82306; 83036; 84439; 84443; 85025

== ENCOUNTER 2022-09-28 10:57 | Outpatient (AMB) | payer MEDICARE, SELFPAY ==
[2022-09-28 11:01] VITALS: BP 138/80; PULSE 71; O2SAT 96; BMI 36.1
--- NOTE | 2022-09-28 11:01 | A.OFFPC_ITS ---
Vital Signs 09/28/22 11:01 Height 5 ft 2 in Weight 197 lb 2 oz BMI 36.1 BP 138/80 Blood Pressure Location Lt brachial Position Sitting Pulse 71 Pulse Source Pulse Oximeter Pulse Oximetry (%) 96 Oxygen Delivery Method Room Air Intake Visit Reasons: DM, hyperlipidemia, HTN Ela Teacher Required: No Accompanied by: Self / Same As Patient Allergies codeine [CODEINE] Allergy (Unknown, Verified 09/28/22 11:40) NAUSEA & VOMITING morphine Allergy (Unknown, Verified 09/28/22 11:40) UNKNOWN oxycodone [OxyContin] Allergy (Unknown, Verified 09/28/22 11:40) UNKNOWN Medication List - Last Reconciled 09/28/22 by Giovanni Burnette MD acetaminophen (Tylenol Extra Strength) 1,000 mg PO QID PRN amlodipine 10 mg PO DAILY 90 days blood sugar diagnostic (FreeStyle Lite Strips) As directed once a day blood-glucose meter (FreeStyle Lite Meter kit) As directed cholecalciferol (vitamin D3) 50 mcg PO DAILY 90 days diphenhydramine HCl (Benadryl) 25 mg PO BEDTIME PRN dulaglutide (Trulicity) 1.5 mg (0.5 mL) subcut QWEEK hydrocortisone 2.5% 1 appl topical BID lancets As directed levothyroxine 112 mcg PO DAILY 90 days lisinopril 40 mg PO DAILY metformin ER 1,000 mg (2 x 500 mg) PO BID 90 days netarsudil-latanoprost 0.02-0.005 % drps ophthalmic (eye) simvastatin 5 mg PO QPM tiotropium bromide (Spiriva with HandiHaler) 1 cap inhalation DAILY 90 days vitamin B comp and C no.3 (B Complex Plus Vitamin C) 1 cap PO DAILY Tobacco use date assessed: 09/28/22 Fall risk assessment: 1 Fall in past year Last assessed Fall Risk: 09/28/22 Dental Screening Dental Screen Date: 09/28/22 Did you have a dental visit in the last 12 months?: Yes Did you have a dental problem in the last 6 months where you did not have access to dental care?: No Was dental information given to patient?: Patient has dentist HPI DM, hyperlipidemia, HTN HPI Details Patient comes in today for her follow up visit States that she contracted poison isidro dermatitis a couple of weeks ago that required a couple of rounds or oral prednisone taper but states that she eventually developed some cellulitis and called in to request for some Abx last week Was started on Augmentin 875 mg BID, which she just finished yesterday - states that the redness and swelling over her legs have cleared up a lot over the past week and are almost completely gone now States that she feels okay otherwise She denies any headaches or dizziness; denies any fever Denies any chest pains, no SOB and no longer has the recurrent cough that she had a few months ago No nausea/vomiting, no abdominal pain No change in bowel habits noted Needs her Levothyroxine Rx refilled Had her follow up labs done a few days ago - to discuss her results [facility] Medical History Basal cell carcinoma of scalp Benign essential hypertension Chronic obstructive pulmonary disease, unspecified COPD (chronic obstructive pulmonary disease) Dermatitis Diabetes mellitus Essential hypertension History of endometrial cancer History of thyroid cancer Obesity (BMI 30-39.9) Obstructive sleep apnea Osteopenia Other and unspecified hyperlipidemia Post-surgical hypothyroidism Precordial chest pain Pure hypercholesterolemia Tick bite of back Type 2 diabetes mellitus with unspecified complications Vitamin D deficiency Surgical History History of section History of colonoscopy History of hysterectomy History of thyroidectomy Family History Father No problems noted. Mother No problems noted. Social History Housing: House Alcohol intake: current Alcohol intake frequency: holidays/special occasions only Patient Tobacco Use Status: Never used Tobacco e-Cigarette/Vaping Use: Never Used Second Hand Smoke Exposure: No service: No Current occupational status: retired Cognitive needs: No Hearing needs: No Vision needs: No Questionnaire PHQ-9 Over the last 2 weeks, how often have you been bothered by any of the following problems? 1. Little interest or pleasure in doing things: several days 2. Feeling down, depressed, or hopeless: several days 3. Trouble falling or staying asleep, or sleeping too much: several days 4. Feeling tired or having little energy: several days 5. Poor appetite or overeating: not at all 6. Feeling bad about yourself - or that you are a failure or have let yourself or your family down: not at all 7. Trouble concentrating on things, such as reading the newspaper or watching television: not at all 8. Moving or speaking so slowly that other people could have noticed. Or the opposite - being so fidgety or restless that you have been moving around a lot more than usual: not at all 9. Thoughts that you would be better off or of hurting yourself in some way: not at all Total score: 4 Depression Screening Interpretation: Positive Depression Screening Follow-up: Existing condition and In treatment 32180 - PHQ-9 Billing: Yes Source: Developed by Drs. Everton Ghosh, Sumaya Becerra, Umang Ruano and colleagues, with an educational annette from [employer]. Thrive Questionnaire Date Thrive assessed: 09/28/22 I am a: Patient What is your living situation today?: I have a steady place to live Within the past 12 months, did the food you bought not last and you didn't have the money to get more?: Never true Within the past 12 months, did you worry whether your food would run out before you got money to buy more?: Never true Do you have trouble paying for medicines?: No Do you have trouble getting transportation to medical appointments?: No Do you have trouble paying your heating and electricity bill?: No Do you have trouble taking care of your child, family member or friend?: No Do you have trouble with day-to-day activities such as bathing, preparing meals, shopping, managing finances, etc.?: No Are you currently unemployed and looking for a job?: No Are you interested in more education?: No Please select the resources that you would like help with: None Currently or been in a relationship where the following occur: no concerns reported AUDIT C Alcohol Use Questionnaire (AUDIT-C) 1. How often do you have a drink containing alcohol?: Never 3. How often do you have six or more drinks on one occasion?: Never Total Score: 0 Score Reviewed/Action Taken: Yes RAVINDER-7 AMB Questionnaire RAVINDER-7 Date RAVINDER - 7 assessed: 09/28/22 Feeling nervous, anxious, or on edge: 1 = Several days Not being able to stop or control worryin = Several days Worrying too much about different things: 1 = Several days Trouble relaxin = Not at all Being so restless that it is hard to sit still: 0 = Not at all Becoming easily annoyed or irritable: 0 = Not at all Feeling afraid as if something awful might happen: 0 = Not at all Total RAVINDER-7 score (0-4 normal; 5-9 mild; 10-14 moderate; 15-21 severe): 3 Source: Developed by Drs. Everton Ghosh, Sumaya Becerra, Umang Ruano and colleagues, with an educational annette from [employer]. Review of Systems Const Denies chills, Denies fatigue, Denies fever(s) and Denies headache(s) ENT Denies dysphagia, Denies dizziness, Denies otalgia, Denies headache(s) and Denies sore throat Card Denies chest pain, Denies palpitations and Denies dyspnea Resp Denies chest congestion, Denies cough and Denies dyspnea GI Denies abdominal pain, Denies constipation, Denies dysphagia, Denies heartburn, Denies diarrhea, Denies nausea and Denies vomiting Denies difficulty voiding, Denies nocturia and Denies dysuria Skin/Breast Reports erythema (over both lower legs - resolving) and Reports rash (over both legs - resolving) Neuro Denies dizziness and Denies headache(s) Psych Reports anxiety Endo Denies fatigue and Denies palpitations Physical exam (Primary Care) Vital Signs: Last Vital Signs Pulse 71 09/28/22 11:01 BP 138/80 09/28/22 11:01 Pulse Ox 96 09/28/22 11:01 Oxygen Delivery Method Room Air 09/28/22 11:01 BMI result Body Mass Index 36.1 Tobacco/Smoking Status: Tobacco use Status Tobacco use date assessed 09/28/22 09/28/22 11:08 Patient Tobacco Use Status Never used Tobacco 09/28/22 11:08 e-Cigarette/Vaping Use Never Used 09/28/22 11:08 PHQ-9: PHQ-9 Score PHQ-9: Total score 4 09/28/22 11:08 Depression Screening Interpretation: Positive Depression Screening Follow-up: Existing condition and In treatment Thrive Assessment: Date of Thrive Assessment Date Thrive assessed 09/28/22 09/28/22 11:08 Currently or been in a relationship where the following occur: no concerns reported Const General: no acute distress and alert HENMT Ears: TM's normal bilaterally and EAC's normal Throat: Yes posterior oropharynx normal and Yes tonsils normal (no TP congestion noted) Neck Neck: Yes no lymphadenopathy and Yes supple Resp Auscultation: clear to auscultation bilaterally, no rales, no rhonchi and no wheezes Cardio Rate: regular rate Rhythm: regular rhythm Heart sounds: no murmurs GI Palpation (GI): Soft to palpation and nontender Auscultation: normal bowel sounds Skin Other: (+) residual patches of erythematous rash over both distal thighs and lower legs; (+) some scaling of the skin on the anteromedial aspects of both legs; no tenderness noted and skin on both legs are NOT warm to touch Extrem General: Yes no clubbing, cyanosis or edema Results Reviewed Results Reviewed: Laboratory Tests 09/25/22 09/25/22 09/25/22 10:20 10:20 10:20 WBC 12.3 H Hgb 12.5 Hct 39.6 Plt Count 274 Sodium 139 Potassium 4.0 Creatinine 0.62 Estimated GFR > 60 Fasting Glucose 146 H Hemoglobin A1c % Calcium 9.2 AST 11 ALT 18 Triglycerides 82 Cholesterol 136 LDL Cholesterol, Calc 73 HDL Cholesterol 47 25-OH Vitamin D Total 49.2 TSH 1.37 Free T4 1.32 Ur Specific [place] 1.015 Urine Protein Negative Urine Glucose (UA) Negative Urine Blood Negative Microalb/Creat Ratio 09/25/22 09/25/22 10:20 10:20 WBC Hgb Hct Plt Count Sodium Potassium Creatinine Estimated GFR Fasting Glucose Hemoglobin A1c % 6.7 Calcium AST ALT Triglycerides Cholesterol LDL Cholesterol, Calc HDL Cholesterol 25-OH Vitamin D Total TSH Free T4 Ur Specific [place] Urine Protein Urine Glucose (UA) Urine Blood Microalb/Creat Ratio 30.9 Assessment and Plan Assessment & Plan (1) Pure hypercholesterolemia: Code(s): E78.00 - Pure hypercholesterolemia, unspecified Plan: Results of her labs done a few days ago reviewed and discussed with patient Reinforced low cholesterol diet Continue Simvastatin 5 mg QD Will recheck labs in 4 months for follow up (2) Diabetes mellitus: Code(s): E11.9 - Type 2 diabetes mellitus without complications Qualifiers: Diabetes mellitus type: type 2 Diabetes mellitus buttermaker continuous churn insulin use: without care home use Diabetes mellitus complication status: without complication Qualified Code(s): E11.9 - Type 2 diabetes mellitus without complications Plan: HgbA1c has increased slightly to 6.7% on her labs done a few days ago, most l ikely in part due to her recent oral prednisone Tx for her poison isidro dermatitis (was at 6.3% a few months ago) - goal is <7.0% Reinforced diabetic diet Continue Metformin ER 1000 mg BID and Trulicity 1.5 mg SQ once a week Follow up with endocrinology as scheduled (3) Benign essential hypertension: Code(s): I10 - Essential (primary) hypertension Plan: Reinforced low sodium diet - goal is systolic BP of at least 130 to 140 mm or less Continue Amlodipine 10 mg QD and Lisinopril 40 mg QD (4) COPD (chronic obstructive pulmonary disease): Comment: PFT done in December 2011 showed (+) moderately severe obstructive airway dis order with no reversibility seen with bronchodilator Tx Code(s): J44.9 - Chronic obstructive pulmonary disease, unspecified Qualifiers: COPD type: unspecified COPD Qualified Code(s): J44.9 - Chronic obstructive pulmonary disease, unspecified Plan: Stable - COPD is mostly mild and patient was reportedly advised by Dr. Ma previously that she can try stop her Spiriva although patient states that she feels better using her Spiriva so she prefers to continue on it at 1 inhalation QD Reassured that her chest x-rays done a few months ago came out completely normal Follow up with pulmonary as scheduled (5) Post-surgical hypothyroidism: Code(s): E89.0 - Postprocedural hypothyroidism Plan: TFTs were normal on her labs done a few days ago - will continue to monitor regularly Continue Levothyroxine 112 mcg QD - Rx refilled Follow up with endocrinology as scheduled (6) Obstructive sleep apnea: Code(s): G47.33 - Obstructive sleep apnea (adult) (pediatric) Plan: Continue using her CPAP device when sleeping at night daily (7) History of thyroid cancer: Comment: (+) papillary thyroid cancer back in the 70s Code(s): Z85.850 - Personal history of malignant neoplasm of thyroid Plan: Follow up with endocrinology and oncology as scheduled for continuing surveillance (8) Osteopenia: Code(s): M85.80 - Other specified disorders of bone density and structure, unspecified site Qualifiers: Osteopenia location: multiple sites Qualified Code(s): M85.89 - Other specified disorders of bone density and structure, multiple sites Plan: BMD done back in 12/2015 showed findings consistent with osteopenia Repeat BMD done on 06/15/21 revealed findings mostly unchanged from previous Encouraged again to continue with regular exercise and physical activity to help maintain her bone density Patient was on oral bisphosphonate Tx for over 5 years and Rx was discontinued back in 2019 (9) Vitamin D deficiency: Code(s): E55.9 - Vitamin D deficiency, unspecified Plan: Corrected - continue Vitamin D3 2000 units QD (10) Poison isidro dermatitis: Code(s): L23.7 - Allergic contact dermatitis due to plants, except food Plan: Resolving - S/P a couple of courses of oral Prednisone taper lately May continue using OTC Hydrocortisone cream BID-TID PRN until the rash on her legs clear up completely (11) Bilateral lower leg cellulitis: Code(s): L03.116 - Cellulitis of left lower limb; L03.115 - Cellulitis of right lower limb Plan: Resolving - just completed 7 days of Augmentin 875 mg BID Advised that no further Tx is indicated at this time (12) Basal cell carcinoma of scalp: Code(s): C44.41 - Basal cell carcinoma of skin of scalp and neck Plan: Diagnosed by dermatology S/P surgical excision in July 2021 - to continue following up with dermatology as scheduled for continuing surveillance (13) Obesity (BMI 30-39.9): Code(s): E66.9 - Obesity, unspecified Plan: Reinforced diet/exercise as tolerated/lose weight Plan Follow up in 4 months Orders: Orders Hemoglobin A1c 4 Months E11.9 - Type 2 diabetes mellitus without complications Lipid Panel 4 Months E78.00 - Pure hypercholesterolemia, unspecified Complete Blood Count Auto Diff 4 Months I10 - Essential (primary) hypertension Comprehensive [place]. Panel Fast 4 Months E78.00 - Pure hypercholesterolemia, unspecified Thyroid Stimulating Hormone 4 Months E03.9 - Hypothyroidism, unspecified UA CC w/rflx Micro + Cult 4 Months R30.0 - Dysuria Free T4 (Free Thyroxine) 4 Months E03.9 - Hypothyroidism, unspecified Microalbumin, Random (w Creat) 4 Months E11.9 - Type 2 diabetes mellitus without complications Vitamin D 25-OH Total 4 Months E55.9 - Vitamin D deficiency, unspecified Medications: Refilled levothyroxine 112 mcg PO DAILY 90 days 90 tabs 3RF E89.0 - Postprocedural hypothyroidism Coding Level of Care Code Est Pt Level 4 (01233) Diagnoses Pure hypercholesterolemia E78.00 Diabetes mellitus E11.9 Diabetes mellitus type: type 2 Diabetes mellitus care home insulin use: without care home use Diabetes mellitus complication status: without complication Benign essential hypertension I10 COPD (chronic obstructive pulmonary disease) J44.9 COPD type: unspecified COPD Post-surgical hypothyroidism E89.0 Obstructive sleep apnea G47.33 History of thyroid cancer Z85.850 Osteopenia M85.89 Osteopenia location: multiple sites Vitamin D deficiency E55.9 Poison isidro dermatitis L23.7 Bilateral lower leg cellulitis L03.116; L03.115 Basal cell carcinoma of scalp C44.41 Obesity (BMI 30-39.9) E66.9
== END 2022-09-28 11:52 | disposition home or self-care (01) ==
PROVIDERS: Visit Provider Internal Medicine
DX: E11.9 Type 2 diabetes mellitus without complications (principal); I10 Essential (primary) hypertension; Z85.850 Personal history of malignant neoplasm of thyroid; J44.9 Chronic obstructive pulmonary disease, unspecified; E78.00 Pure hypercholesterolemia, unspecified; E89.0 Postprocedural hypothyroidism; G47.33 Obstructive sleep apnea (adult) (pediatric); M85.89 Other specified disorders of bone density and structure, multiple sites; E55.9 Vitamin D deficiency, unspecified; L23.7 Allergic contact dermatitis due to plants, except food; L03.116 Cellulitis of left lower limb; E66.9 Obesity, unspecified
CPT/HCPCS: 99214

== ENCOUNTER 2022-10-04 09:59 | Outpatient (AMB) | payer MEDICARE, SELFPAY ==
[2022-10-04 10:01] VITALS: BP 120/66; PULSE 80; O2SAT 98; BMI 35.5
--- NOTE | 2022-10-04 10:01 | AM.OFFVISMDC ---
Intake Vital Signs 10/04/22 10:01 Height 5 ft 2 in Weight 194 lb 0.2 oz BMI 35.5 BP 120/66 Blood Pressure Location Lt brachial Position Sitting Pulse 80 Pulse Source Pulse Oximeter Temp Source Skin Pulse Oximetry (%) 98 Oxygen Delivery Method Room Air Intake Visit Reasons: SWV- G0439 Intake Note: Patient is here for an Annual Wellness Visit. [employer] Required: No Allergies codeine [CODEINE] Allergy (Unknown, Verified 10/04/22 10:19) NAUSEA & VOMITING morphine Allergy (Unknown, Verified 10/04/22 10:19) UNKNOWN oxycodone [OxyContin] Allergy (Unknown, Verified 10/04/22 10:19) UNKNOWN Medication List - Last Reconciled 10/04/22 by ÁNGEL Cueto acetaminophen (Tylenol Extra Strength) 1,000 mg PO QID PRN amlodipine 10 mg PO DAILY 90 days blood sugar diagnostic (FreeStyle Lite Strips) As directed once a day blood-glucose meter (FreeStyle Lite Meter kit) As directed cholecalciferol (vitamin D3) 50 mcg PO DAILY 90 days diphenhydramine HCl (Benadryl) 25 mg PO BEDTIME PRN dulaglutide (Trulicity) 1.5 mg (0.5 mL) subcut QWEEK hydrocortisone 2.5% 1 appl topical BID lancets As directed levothyroxine 112 mcg PO DAILY 90 days lisinopril 40 mg PO DAILY metformin ER 1,000 mg (2 x 500 mg) PO BID 90 days netarsudil-latanoprost 0.02-0.005 % drps ophthalmic (eye) simvastatin 5 mg PO QPM tiotropium bromide (Spiriva with HandiHaler) 1 cap inhalation DAILY 90 days vitamin B comp and C no.3 (B Complex Plus Vitamin C) 1 cap PO DAILY HPI SWV- G0439 HPI Details Patient is a 72-year-old female who presents today for subsequent wellness visit. Patient of Dr. Burnette. Today we discussed patient's need for breast cancer screening. Up-to-date with immunizations and other health preventative screenings. [place] of care was reviewed with the patient and she was provided with a screening schedule. Healthcare proxy and MOLST forms on file. In addition, patient reports left chest tick bite 1 week ago, she was able to remove part of it, part of tick still in her left chest area. Denies discharge, reports mild redness around. [facility] Medical History Basal cell carcinoma of scalp Benign essential hypertension Chronic obstructive pulmonary disease, unspecified COPD (chronic obstructive pulmonary disease) Dermatitis Diabetes mellitus Essential hypertension History of endometrial cancer History of thyroid cancer Obesity (BMI 30-39.9) Obstructive sleep apnea Osteopenia Other and unspecified hyperlipidemia Post-surgical hypothyroidism Precordial chest pain Pure hypercholesterolemia Tick bite of back Type 2 diabetes mellitus with unspecified complications Vitamin D deficiency Surgical History History of section History of colonoscopy History of hysterectomy History of thyroidectomy Family History Father No problems noted. Mother No problems noted. Social History Housing: House Alcohol intake: current Alcohol intake frequency: holidays/special occasions only Patient Tobacco Use Status: Never used Tobacco e-Cigarette/Vaping Use: Never Used Second Hand Smoke Exposure: No service: No Current occupational status: retired Cognitive needs: No Hearing needs: No Vision needs: No Questionnaire Medicare Wellness Checkup [age] What gender do you identify with?: female During the past 4 weeks, how much have you been bothered by emotional problems such as feeling anxious, depressed, irritable, sad or downhearted, and blue?: slightly During the past 4 weeks, has your physical & emotional health limited your social activities with family, friends, neighbors, or groups?: slightly During the past 4 weeks, how much bodily pain have you generally had?: very mild pain During the past 4 weeks, was someone available to help you if you needed & wanted help?: yes, as much as I wanted During the past 4 weeks, what was the hardest physical activity you could do for at least 2 minutes?: heavy Can you get to places out of walking distance without help? (For eg., can you travel alone on buses, taxis or drive your car?): Yes Can you go shopping for groceries or clothes without someone's help?: Yes Can you prepare your own meals?: Yes Can you do your housework without help?: Yes Because of any health problems, do you need the help of another person with your personal care needs such as eating, bathing, dressing or getting around the house?: No Can you handle your own money without help?: Yes During the past 4 weeks, how would you rate your health in general?: good During the past 4 weeks how have things been going for you?: pretty well Are you having difficulties driving your car?: no Do you always fasten your seat belt when you are in a car?: yes, usually During past 4 weeks, have you been bothered by the following: never: Sexual problems?, Trouble eating well?, Teeth or denture problems? and Problems using the telephone?, seldom: Falling or dizzy when standing up and sometimes: Tiredness or fatigue? Have you fallen 2 or more times in the past year?: No Are you afraid of falling?: No Are you a smoker?: no During the past 4 weeks, how many drinks of wine, beer, or other alcoholic beverages did you have?: no alcohol at all Do you exercise for about 20 minutes 3 or more times a week?: no, I usually do not exercise this much Have you been given information to help with the following?: no: Hazards in your house that might hurt you? and no: Keeping track of your medications? How often do you have trouble taking medicines the way you have been told to take them?: I always take medicine as prescribed How confident are you that you can control & manage most of your health problems?: very confident What is your race?: White Mini Mental State Exam (MMSE) Orientation What is the (year) (season) (date) (day) (month)?: year, season, date, day and month Score Score: 5 Activity of Daily Living Bathing - sponge bath, tub bath or shower: receives no assistance (gets in/out by self, if usual bathing means Dressing - getting clothes from closets & drawers, including inner/outer garments & fasteners.: gets clothes & gets completely dressed without help Toileting - going to the 'toilet room' for urine/bowel elimination & cleaning self/arranging clothes: goes to toilet room, cleans self, arranges clothes without help Transfer: moves in & out of bed and chair without help (may use support object) Continence: controls urination/bowel movements completely by self Feeding: feeds self without help Total Score: 0 Information obtained from: patient Using telephone: independent Traveling: independent Shopping: independent Preparing meals: independent Housework: independent Taking medicine: independent Managing money: independent PHQ-9 Over the last 2 weeks, how often have you been bothered by any of the following problems? 1. Little interest or pleasure in doing things: not at all 2. Feeling down, depressed, or hopeless: not at all 3. Trouble falling or staying asleep, or sleeping too much: several days 4. Feeling tired or having little energy: several days 5. Poor appetite or overeating: not at all 6. Feeling bad about yourself - or that you are a failure or have let yourself or your family down: not at all 7. Trouble concentrating on things, such as reading the newspaper or watching television: not at all 8. Moving or speaking so slowly that other people could have noticed. Or the opposite - being so fidgety or restless that you have been moving around a lot more than usual: not at all 9. Thoughts that you would be better off or of hurting yourself in some way: not at all Total score: 2 Depression Screening Interpretation: Negative 14907 - PHQ-9 Billing: Yes Source: Developed by Drs. Everton Ghosh, Sumaya Becerra, Umang Ruano and colleagues, with an educational annette from [employer]. Review of Systems Skin/Breast Reports as per HPI Physical Exam Vital Signs: Last Vital Signs Pulse 80 10/04/22 10:01 BP 120/66 10/04/22 10:01 Pulse Ox 98 10/04/22 10:01 Oxygen Delivery Method Room Air 10/04/22 10:01 BMI result Body Mass Index 35.5 Const General: cooperative and no acute distress Orientation/consciousness: patient oriented x3 HEENT Other: Whisper test: pass Eyes General: appearance normal, both eyes and all related structures Neck Neck: Yes normal visual inspection, Yes full ROM and Yes no lymphadenopathy Resp Effort & Inspection: normal respiratory effort Auscultation: clear to auscultation bilaterally Cardio Rate: regular rate Rhythm: regular rhythm Heart sounds: S1 normal heart sound present and S2 normal heart sound present GI Auscultation: normal bowel sounds Skin Full body images: 1. Left chest about 1mm black area slightly raised noted with mild surrounding erythema, no discharge, nontender. Neuro Other: Balance: Normal Get up and walk: able to Romberg: negative Tandem gait: unable to General: patient oriented x3 Assessment & Plan Assessment & Plan (1) Screening for breast cancer: Code(s): Z12.39 - Encounter for other screening for malignant neoplasm of breast (2) Basal cell carcinoma of scalp: Code(s): C44.41 - Basal cell carcinoma of skin of scalp and neck Plan: Continue to follow-up with [facility] as scheduled (3) Morbid obesity: Code(s): E66.01 - Morbid (severe) obesity due to excess calories Plan: Healthy food choices and exercise as tolerated (4) Encounter for Medicare annual wellness exam: Code(s): Z00.00 - Encounter for general adult medical examination without abnormal findings (5) Post-surgical hypothyroidism: Code(s): E89.0 - Postprocedural hypothyroidism Plan: Levothyroxine 112 mcg daily (6) Osteopenia: Code(s): M85.80 - Other specified disorders of bone density and structure, unspecified site Qualifiers: Osteopenia location: multiple sites Qualified Code(s): M85.89 - Other specified disorders of bone density and structure, multiple sites Plan: Bone density screen 06/2021 which showed osteopenia (7) Obstructive sleep apnea: Code(s): G47.33 - Obstructive sleep apnea (adult) (pediatric) Plan: On CPAP (8) COPD (chronic obstructive pulmonary disease): Comment: PFT done in December 2011 showed (+) moderately severe obstructive airway disorder with no reversibility seen with bronchodilator Tx Code(s): J44.9 - Chronic obstructive pulmonary disease, unspecified Qualifiers: COPD type: unspecified COPD Qualified Code(s): J44.9 - Chronic obstructive pulmonary disease, unspecified Plan: Continue current treatment (9) Pure hypercholesterolemia: Code(s): E78.00 - Pure hypercholesterolemia, unspecified Plan: Simvastatin 5 mg at bedtime Low-cholesterol diet (10) Benign essential hypertension: Code(s): I10 - Essential (primary) hypertension Plan: Continue current treatment Low-sodium diet (11) Diabetes mellitus: Code(s): E11.9 - Type 2 diabetes mellitus without complications Qualifiers: Diabetes mellitus type: type 2 Diabetes mellitus longterm insulin use: without intermission coordinator use Diabetes mellitus complication status: without complication Qualified Code(s): E11.9 - Type 2 diabetes mellitus without complications Plan: A1c 6.7 09/2022 Continue current treatment Continue low-carbohydrate diet (12) Tick bite: Code(s): W57.XXXA - Bitten or stung by nonvenomous insect and other nonvenomous arthropods, initial encounter Plan: See HPI and physical exam for details Will treat with doxycycline b.i.d. for 10 days, will check Lyme disease blood work 3 weeks after finishing antibiotics. Patient agreed Orders: Orders MM tomosynthesis screening BI Today Z12.39 - Encounter for other screening for malignant neoplasm of breast Lyme IgG/IgM w/reflex to WB 1 Month W57.XXXA - Bitten or stung by nonvenomous insect and other nonvenomous arthropods, initial encounter Medications: New doxycycline hyclate 100 mg PO BID 10 days 20 tabs 0RF W57.XXXA - Bitten or stung by nonvenomous insect and other nonvenomous arthropods, initial encounter Quality Reporting (2019) Depression/Bipolar (159/160/161/177) PHQ-9: Total score: 2 Coding Level of Care Code Medicare Subsequent (G0439) Est Pt Level 3 (57321) Diagnoses Screening for breast cancer Z12.39 Basal cell carcinoma of scalp C44.41 Morbid obesity E66.01 Encounter for Medicare annual wellness exam Z00.00 Post-surgical hypothyroidism E89.0 Osteopenia M85.89 Osteopenia location: multiple sites Obstructive sleep apnea G47.33 COPD (chronic obstructive pulmonary disease) J44.9 COPD type: unspecified COPD Pure hypercholesterolemia E78.00 Benign essential hypertension I10 Diabetes mellitus E11.9 Diabetes mellitus type: type 2 Diabetes mellitus longterm insulin use: without longterm use Diabetes mellitus complication status: without complication Tick bite W57.XXXA CPT Codes Advance Care Planning - Advance Care Planning discussion: On file, no changes ([id number]) Advance Care Planning - Time spent: 1-15 minutes, on File ([id number]) Advance Care Planning Advance Care Planning discussion: On file, no changes Date of discussion: 10/04/22 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
== END 2022-10-04 11:30 | disposition home or self-care (01) ==
PROVIDERS: Visit Provider Nurse Practitioner Family
DX: Z00.00 Encounter for general adult medical examination without abnormal findings (principal); E66.01 Morbid (severe) obesity due to excess calories; J44.9 Chronic obstructive pulmonary disease, unspecified; S20.362A Insect bite (nonvenomous) of left front wall of thorax, initial encounter; C44.41 Basal cell carcinoma of skin of scalp and neck; T63.481A Toxic effect of venom of other arthropod, accidental (unintentional), initial encounter; E89.0 Postprocedural hypothyroidism; M85.89 Other specified disorders of bone density and structure, multiple sites; G47.33 Obstructive sleep apnea (adult) (pediatric); E78.00 Pure hypercholesterolemia, unspecified; I10 Essential (primary) hypertension; E11.9 Type 2 diabetes mellitus without complications
CPT/HCPCS: 1123F; 99213; G0439

== ENCOUNTER 2022-11-06 10:28 | Outpatient (REF) | payer MEDICARE, SELFPAY ==
[2022-11-08 05:45] LABS: Lyme Abs Screen <0.90 index
== END 2022-11-06 10:29 | disposition home or self-care (01) ==
LOC: HO.10HDL 10:28
PROVIDERS: Visit Provider Nurse Practitioner Family
DX: Z13.89 Encounter for screening for other disorder (principal)
CPT/HCPCS: 36415; 86617; 86618

== ENCOUNTER 2022-11-06 10:39 | Outpatient (REF) | payer MEDICARE, SELFPAY ==
--- NOTE | ~2022-11-06 | MM_ITS ---
EXAMINATION: MM SCREENING DIGITAL BREAST TOMOSYNTHESIS, BILATERAL CLINICAL INFORMATION: Screening. Asymptomatic. COMPARISON: Mammography: 10/10/2021, 05/13/2017, 04/05/2016, and dating back to 2012. TECHNIQUE: Digital breast tomosynthesis is performed in both the craniocaudal and mediolateral oblique views along with computer-aided detection (CAD). Synthesized 2D images are generated from the tomosynthesis. FINDINGS: There are scattered areas of fibroglandular density (ACR BI-RADS breast composition Category b). There are a few scattered benign dystrophic calcifications. There are no suspicious masses, suspicious grouped calcifications, or areas of architectural distortion. The parenchymal pattern is stable from prior exams. MM/MM tomosynthesis screening BI IMPRESSION: No mammographic evidence of malignancy. ASSESSMENT: BI-RADS BI-RADS 1 - Negative RECOMMENDATION: Routine annual mammography screening. 1 year F/U This examination should not preclude the clinical evaluation of a suspicious palpable abnormality. This patient's information was entered into a reminder system with a target due date for their next mammogram.
== END 2022-11-06 10:40 | disposition home or self-care (01) ==
LOC: HO.MAMMO 10:39
PROVIDERS: PCP Internal Medicine; Visit Provider Nurse Practitioner Family
DX: Z12.31 Encounter for screening mammogram for malignant neoplasm of breast (principal)
CPT/HCPCS: 36415; 77063; 77067; 86617; 86618

== ENCOUNTER → 2022-11-06 11:15 | Outpatient (BNV) | payer MEDICARE, SELFPAY | PROVIDERS: PCP Internal Medicine; Visit Provider Radiology Diagnostic Radiology | DX: Z12.31 Encounter for screening mammogram for malignant neoplasm of breast (principal) | CPT/HCPCS: 77063; 77067 ==

== ENCOUNTER 2023-01-31 09:12 | Outpatient (REF) | payer MEDICARE, SELFPAY ==
[2023-01-31 10:19] LABS: MANUAL DIFF FLAG NO
[2023-01-31 10:23] LABS: Appearance Urine Clear; Basophils Absolute Auto 0.1 X10*3/uL (0.0-0.2); Basophils Percent Auto 0.6 % (0-2); Color Urine Yellow; Eosinophils Absolute Auto 0.2 X10*3/uL (0.0-0.4); Eosinophils Percent Auto 2.5 % (0-4); Glucose Urine UA Negative (Negative); Hematocrit 39.5 % (37.0-47.0); Hemoglobin 12.7 g/dl (12.0-16.0); Imm Gran Abs Auto 0.03 X10*3/uL (0.00-0.03); Imm Gran Pct Auto 0.3 % (0.0-0.4); Leukocyte Esterase Urine Negative (Negative); Lymphocytes Percent Auto 33.9 % (20-40); Mean Corpuscular HGB Conc 32.2 g/dl (31.0-35.0); Mean Corpuscular Hemoglobin 26.7 pg (27.0-33.0); Mean Corpuscular Volume 83.2 fL (80.0-98.0); Mean Platelet Volume 9.9 fL (9.4-12.3); Monocytes Absolute Auto 0.5 X10*3/uL (0.1-1.2); Monocytes Percent Auto 5.3 % (2-11); Neutrophils Percent Auto 57.4 % (45-73); Nitrite Urine Negative (Negative); Platelet Count 323 X10*3/uL (160-400); Red Blood Count 4.75 X10*6/uL (4.20-5.50); Red Cell Distribution Width 13.8 % (11.0-16.0); Specific Gravity - Urine 1.025 (1.005-1.025); Urine Blood Negative (Negative); Urine Ketones Negative (Negative); Urine Protein Negative (Neg-Trace); White Blood Count 8.7 X10*3/uL (4.8-10.8)
[2023-01-31 10:42] LABS: Estimated Average Glucose 131 mg/dL; Hemoglobin A1c % 6.2 % (<6.0)
[2023-01-31 10:52] LABS: Alanine Aminotransferase 16 U/L (0-31); Albumin Level 4.1 g/dL (3.5-5.0); Alkaline Phosphatase 62 U/L (39-117); Anion Gap 11 (12-20); Aspartate Amino Transferase 13 U/L (5-31); Bilirubin Total 0.4 mg/dL (0.0-1.0); Blood Urea Nitrogen 16 mg/dL (9-16); Calcium 9.9 mg/dL (8.4-10.2); Carbon Dioxide 25 mmol/L (22-29); Chloride 106 mmol/L (96-108); Cholesterol 140 mg/dL (<200); Estimated Glomerular Filt Rate > 60; Glucose Fasting 125 mg/dL (60-99); HDL Cholesterol 41 mg/dL (>40); LDL Cholesterol Calculated 84 mg/dL (<100); Potassium 4.2 mmol/L (3.3-5.1); Sodium 138 mmol/L (135-145); Total Protein 6.8 g/dL (6.5-8.0); Triglycerides 76 mg/dL (<150)
[2023-01-31 10:53] LABS: Creatinine Urine 98.61 mg/dL; Microalbum/Creatinine Ratio Ur 13.1 ug/mg cr (<30)
[2023-01-31 11:12] LABS: Free T4 (Free Thyroxine) 1.28 ng/dL (0.71-1.85); Thyroid Stimulating Hormone 0.49 uIU/mL (0.32-4.0); Vitamin D 25-OH Total 55.9 ng/mL (>30)
== END 2023-01-31 09:13 | disposition home or self-care (01) ==
LOC: HO.10HDL 09:12
PROVIDERS: Visit Provider Internal Medicine
DX: E11.9 Type 2 diabetes mellitus without complications (principal); I10 Essential (primary) hypertension; E78.00 Pure hypercholesterolemia, unspecified; R30.0 Dysuria; E55.9 Vitamin D deficiency, unspecified; E03.9 Hypothyroidism, unspecified
CPT/HCPCS: 36415; 80053; 80061; 81003; 82043; 82306; 82570; 83036; 84439; 84443; 85025

== ENCOUNTER 2023-02-05 10:56 | Outpatient (AMB) | payer MEDICARE, SELFPAY ==
[2023-02-05 10:58] VITALS: BP 118/58; PULSE 73; O2SAT 97; BMI 35.0
--- NOTE | 2023-02-05 10:58 | MHC.PC.OV ---
Vital Signs 02/05/23 10:58 Height 5 ft 2 in Weight 191 lb 2 oz BMI 35.0 BP 118/58 L Blood Pressure Location Lt brachial Position Sitting Pulse 73 Pulse Source Pulse Oximeter Pulse Oximetry (%) 97 Oxygen Delivery Method Room Air Intake Visit Reasons: 4mth f/u Advertising Supervisor Required: No Accompanied by: Self / Same As Patient Allergies codeine [CODEINE] Allergy (Unknown, Verified 02/05/23 11:24) NAUSEA & VOMITING morphine Allergy (Unknown, Verified 02/05/23 11:24) UNKNOWN oxycodone [OxyContin] Allergy (Unknown, Verified 02/05/23 11:24) UNKNOWN Medication List - Last Reconciled 02/05/23 by Giovanni Burnette MD acetaminophen (Tylenol Extra Strength) 1,000 mg PO QID PRN amlodipine 10 mg PO DAILY 90 days blood sugar diagnostic (FreeStyle Lite Strips) As directed once a day blood-glucose meter (FreeStyle Lite Meter kit) As directed cholecalciferol (vitamin D3) 50 mcg PO DAILY 90 days diphenhydramine HCl (Benadryl) 25 mg PO BEDTIME PRN doxycycline hyclate 100 mg PO BID 10 days dulaglutide (Trulicity) 1.5 mg (0.5 mL) subcut QWEEK hydrocortisone 2.5% 1 appl topical BID lancets As directed levothyroxine 112 mcg PO DAILY 90 days lisinopril 40 mg PO DAILY metformin ER 1,000 mg (2 x 500 mg) PO BID 90 days netarsudil-latanoprost 0.02-0.005 % drps ophthalmic (eye) simvastatin 5 mg PO QPM tiotropium bromide (Spiriva with HandiHaler) 1 cap inhalation DAILY 90 days vitamin B comp and C no.3 (B Complex Plus Vitamin C) 1 cap PO DAILY Tobacco use date assessed: 02/05/23 Fall risk assessment: No Falls in past year Last assessed Fall Risk: 02/05/23 Dental Screening Dental Screen Date: 02/05/23 Did you have a dental visit in the last 12 months?: Yes Did you have a dental problem in the last 6 months where you did not have access to dental care?: No Was dental information given to patient?: Patient has dentist HPI 4mth f/u HPI Details Patient comes in today for her follow up visit States that she feels okay but has noticed some on and off sharp headaches lately - thinks that these are related to stress as she is still taking care of her invalid at home She denies any dizziness Denies any chest pains, no SOB No nausea/vomiting, no abdominal pain No change in bowel habits noted although she has seen some blood in her stools at times over the past few months - states that she checked in with Dr. Li regarding this and was advised that this is most likely due to her constipation/hemorrhoids but he scheduled her for a repeat colonoscopy to evaluate this further She is scheduled now for her repeat colonoscopy on 03/08/2023 Had her follow up labs done last week - to discuss her results [facility] Medical History Basal cell carcinoma of scalp Tick bite of back Post-surgical hypothyroidism Obesity (BMI 30-39.9) Dermatitis History of thyroid cancer History of endometrial cancer Vitamin D deficiency Osteopenia Obstructive sleep apnea COPD (chronic obstructive pulmonary disease) Pure hypercholesterolemia Benign essential hypertension Diabetes mellitus Chronic obstructive pulmonary disease, unspecified Other and unspecified hyperlipidemia Type 2 diabetes mellitus with unspecified complications Essential hypertension Precordial chest pain Surgical History History of colonoscopy History of thyroidectomy History of hysterectomy History of section Family History Father No problems noted. Mother No problems noted. Social History Housing: House Alcohol intake: current Alcohol intake frequency: holidays/special occasions only Patient Tobacco Use Status: Never used Tobacco e-Cigarette/Vaping Use: Never Used Second Hand Smoke Exposure: No service: No Current occupational status: retired Cognitive needs: No Hearing needs: No Vision needs: No Questionnaire PHQ-9 Over the last 2 weeks, how often have you been bothered by any of the following problems? 1. Little interest or pleasure in doing things: not at all 2. Feeling down, depressed, or hopeless: not at all 3. Trouble falling or staying asleep, or sleeping too much: several days 4. Feeling tired or having little energy: several days 5. Poor appetite or overeating: not at all 6. Feeling bad about yourself - or that you are a failure or have let yourself or your family down: not at all 7. Trouble concentrating on things, such as reading the newspaper or watching television: not at all 8. Moving or speaking so slowly that other people could have noticed. Or the opposite - being so fidgety or restless that you have been moving around a lot more than usual: not at all 9. Thoughts that you would be better off or of hurting yourself in some way: not at all Total score: 2 Depression Screening Interpretation: Negative Depression Screening Done: Yes 36456 - PHQ-9 Billing: Yes Source: Developed by Drs. Everton Ghosh, Sumaya Becerra, Umang Ruano and colleagues, with an educational annette from [employer]. Thrive Questionnaire Date Thrive assessed: 02/05/23 I am a: Patient What is your living situation today?: I have a steady place to live Within the past 12 months, did the food you bought not last and you didn't have the money to get more?: Never true Within the past 12 months, did you worry whether your food would run out before you got money to buy more?: Never true Do you have trouble paying for medicines?: No Do you have trouble getting transportation to medical appointments?: No Do you have trouble paying your heating and electricity bill?: No Do you have trouble taking care of your child, family member or friend?: No Do you have trouble with day-to-day activities such as bathing, preparing meals, shopping, managing finances, etc.?: No Are you currently unemployed and looking for a job?: No Are you interested in more education?: No Please select the resources that you would like help with: None Currently or been in a relationship where the following occur: no concerns reported AUDIT C Alcohol Use Questionnaire (AUDIT-C) 1. How often do you have a drink containing alcohol?: Never 3. How often do you have six or more drinks on one occasion?: Never Total Score: 0 Score Reviewed/Action Taken: Yes RAVINDER-7 AMB Questionnaire RAVINDER-7 Date RAVINDER - 7 assessed: 02/05/23 Feeling nervous, anxious, or on edge: 1 = Several days Not being able to stop or control worryin = Several days Worrying too much about different things: 1 = Several days Trouble relaxin = Not at all Being so restless that it is hard to sit still: 0 = Not at all Becoming easily annoyed or irritable: 0 = Not at all Feeling afraid as if something awful might happen: 0 = Not at all Total RAVINDER-7 score (0-4 normal; 5-9 mild; 10-14 moderate; 15-21 severe): 3 Source: Developed by Drs. Everton Ghosh, Sumaya Becerra, Umang Ruano and colleagues, with an educational annette from [employer]. Review of Systems Const Denies chills, Denies fatigue, Denies fever(s) and Denies headache(s) ENT Denies dysphagia, Denies dizziness, Denies otalgia, Denies headache(s), Denies odynophagia and Denies sore throat Card Denies chest pain, Denies palpitations and Denies dyspnea Resp Denies chest congestion, Denies cough and Denies dyspnea GI Denies abdominal pain, Reports hematochezia (on and off lately), Reports constipation (at times), Denies dysphagia, Denies heartburn, Denies diarrhea, Denies nausea, Denies odynophagia and Denies vomiting Denies difficulty voiding, Denies nocturia, Denies dysuria and Denies urinary urgency Musc Denies back pain Skin/Breast Denies rash Neuro Denies dizziness and Denies headache(s) Psych Reports anxiety Endo Denies fatigue and Denies palpitations Physical exam (Primary Care) Vital Signs: Last Vital Signs Pulse 73 02/05/23 10:58 BP 118/58 L 02/05/23 10:58 Pulse Ox 97 02/05/23 10:58 Oxygen Delivery Method Room Air 02/05/23 10:58 BMI result Body Mass Index 35.0 Tobacco/Smoking Status: Tobacco use Status Tobacco use date assessed 02/05/23 02/05/23 11:05 Patient Tobacco Use Status Never used Tobacco 02/05/23 11:05 e-Cigarette/Vaping Use Never Used 02/05/23 11:05 PHQ-9: PHQ-9 Score PHQ-9: Total score 2 02/05/23 11:05 Depression Screening Interpretation: Negative Thrive Assessment: Date of Thrive Assessment Date Thrive assessed 02/05/23 02/05/23 11:05 Currently or been in a relationship where the following occur: no concerns reported Const General: no acute distress and alert HENMT Ears: TM's normal bilaterally and EAC's normal Throat: Yes posterior oropharynx normal and Yes tonsils normal (no TP congestion noted) Neck Neck: Yes no lymphadenopathy and Yes supple Resp Auscultation: clear to auscultation bilaterally, no rales, no rhonchi and no wheezes Cardio Rate: regular rate Rhythm: regular rhythm Heart sounds: no murmurs GI Palpation (GI): Soft to palpation and nontender Auscultation: normal bowel sounds Skin Rashes: no rashes Extrem General: Yes no clubbing, cyanosis or edema Results Reviewed Results Reviewed: Laboratory Tests 01/31/23 01/31/23 01/31/23 09:20 09:20 09:30 WBC 8.7 Hgb 12.7 Hct 39.5 Plt Count 323 Sodium 138 Potassium 4.2 Creatinine 0.59 Estimated GFR > 60 Fasting Glucose 125 H Hemoglobin A1c % 6.2 H Calcium 9.9 D AST 13 ALT 16 Triglycerides 76 Cholesterol 140 LDL Cholesterol, Calc 84 HDL Cholesterol 41 25-OH Vitamin D Total 55.9 TSH 0.49 Free T4 1.28 Ur Specific Cache 1.025 Urine Protein Negative Urine Glucose (UA) Negative Urine Blood Negative Microalb/Creat Ratio 13.1 Assessment and Plan Assessment & Plan (1) Pure hypercholesterolemia: Code(s): E78.00 - Pure hypercholesterolemia, unspecified Plan: Results of her labs done last week reviewed and discussed with patient Reinforced low cholesterol diet Continue Simvastatin 5 mg QD Will recheck her labs and fasting lipids in 4 months for follow up (2) Diabetes mellitus: Code(s): E11.9 - Type 2 diabetes mellitus without complications Qualifiers: Diabetes mellitus type: type 2 Diabetes mellitus prison insulin use: without prison use Diabetes mellitus complication status: without complication Qualified Code(s): E11.9 - Type 2 diabetes mellitus without complications Plan: HgbA1c has improved to 6.2% on her labs done last week (was at 6.7% a few months ago) - goal is <7.0% Reinforced diabetic diet Continue Metformin ER 1000 mg BID and Trulicity 1.5 mg SQ once a week Follow up with endocrinology as scheduled (3) Benign essential hypertension: Code(s): I10 - Essential (primary) hypertension Plan: Reinforced low sodium diet - goal is systolic BP of at least 130 to 140 mm or less Continue Amlodipine 10 mg QD and Lisinopril 40 mg QD (4) COPD (chronic obstructive pulmonary disease): Comment: PFT done in December 2011 showed (+) moderately severe obstructive airway disorder with no reversibility seen with bronchodilator Tx Code(s): J44.9 - Chronic obstructive pulmonary disease, unspecified Qualifiers: COPD type: unspecified COPD Qualified Code(s): J44.9 - Chronic obstructive pulmonary disease, unspecified Plan: Stable - COPD is mostly mild and patient was reportedly advised by Dr. Ma previously that she can try stop her Spiriva although patient states that she feels better using her Spiriva so she prefers to continue on it at 1 inhalation QD Chest x-rays done a few months ago came out normal Follow up with pulmonary as scheduled (5) Post-surgical hypothyroidism: Code(s): E89.0 - Postprocedural hypothyroidism Plan: TFTs were normal on her labs done last week - will continue to monitor her TFTs regularly Continue Levothyroxine 112 mcg QD Follow up with endocrinology as scheduled (6) Obstructive sleep apnea: Code(s): G47.33 - Obstructive sleep apnea (adult) (pediatric) Plan: Continue using her CPAP device when sleeping at night daily (7) History of thyroid cancer: Comment: (+) papillary thyroid cancer back in the 70s Code(s): Z85.850 - Personal history of malignant neoplasm of thyroid Plan: Follow up with endocrinology and oncology as scheduled for continuing surveillance (8) Osteopenia: Code(s): M85.80 - Other specified disorders of bone density and structure, unspecified site Qualifiers: Osteopenia location: multiple sites Qualified Code(s): M85.89 - Other specified disorders of bone density and structure, multiple sites Plan: BMD done back in 12/2015 showed findings consistent with osteopenia Repeat BMD done on 06/15/21 revealed findings mostly unchanged from previous Patient is encouraged again to continue with regular exercise and physical activity to help maintain her bone density She was on oral bisphosphonate Tx for over 5 years and Rx was discontinued back in 2019 (9) Vitamin D deficiency: Code(s): E55.9 - Vitamin D deficiency, unspecified Plan: Continue Vitamin D3 2000 units QD (10) Blood in stool: Code(s): K92.1 - Melena Plan: Is most likely due to hemorrhoids/constipation but she is scheduled for repeat colonoscopy with Dr. Li on 03/08/2023 for further evaluation (11) Basal cell carcinoma of scalp: Code(s): C44.41 - Basal cell carcinoma of skin of scalp and neck Plan: Diagnosed by dermatology; S/P surgical excision in July 2021 To continue following up with dermatology as scheduled for continuing surveillance (12) Obesity (BMI 30-39.9): Code(s): E66.9 - Obesity, unspecified Plan: Reinforced diet/exercise as tolerated/lose weight Plan Follow up in 4 months Orders: Orders Thyroid Stimulating Hormone 4 Months E03.9 - Hypothyroidism, unspecified Complete Blood Count Auto Diff 4 Months I10 - Essential (primary) hypertension UA CC w/rflx Micro + Cult 4 Months R30.0 - Dysuria Free T4 (Free Thyroxine) 4 Months E03.9 - Hypothyroidism, unspecified Lipid Panel 4 Months E78.00 - Pure hypercholesterolemia, unspecified Comprehensive [facility]. 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
== END 2023-02-05 11:45 | disposition home or self-care (01) ==
PROVIDERS: PCP Internal Medicine; Visit Provider Internal Medicine
DX: Z00.00 Encounter for general adult medical examination without abnormal findings (principal); E66.9 Obesity, unspecified; R03.0 Elevated blood-pressure reading, without diagnosis of hypertension; Z68.35 Body mass index [BMI] 35.0-35.9, adult; L25.9 Unspecified contact dermatitis, unspecified cause
CPT/HCPCS: 99214; 99385

== ENCOUNTER 2023-03-08 09:30 | Day surgery (SDC) | payer MEDICARE, SELFPAY ==
--- NOTE | 2023-03-07 10:54 | HO.ANESPROP2 ---
Documented by User: Jessica Nesbitt NP 03/07/23 10:57 HPI - Anesthesia Eval Consult details Narrative: 73yo F for Colonoscopy 2021 [place] [facility] [place]. Negative testing and CP Resolved with better BP control. PRN f/u only Anesthesia Pre-Procedure Meds Is the patient on any of the following meds?: Dulaglutide (Trulicity) PMFSH Active Problems Active Problems: All Active Problems (Updated 02/05/23 @ 11:41 by Giovanni Burnette MD) Blood in stool (Acute) Tick bite (Acute) Bilateral lower leg cellulitis (Acute) Poison isidro dermatitis (Acute) Cellulitis (Acute) Contact dermatitis (Acute) Cough (Acute) Screening for breast cancer (Acute) Basal cell carcinoma of scalp (Acute) Morbid obesity (Acute) Encounter for Medicare annual wellness exam (Acute) History of thyroid cancer (Acute) Post-surgical hypothyroidism (Acute) Obesity (BMI 30-39.9) (Acute) Vitamin D deficiency (Acute) Osteopenia (Acute) Obstructive sleep apnea (Acute) COPD (chronic obstructive pulmonary disease) (Acute) Pure hypercholesterolemia (Acute) Benign essential hypertension (Acute) Diabetes mellitus (Acute) Chronic obstructive pulmonary disease, unspecified (Acute) Other and unspecified hyperlipidemia (Acute) Type 2 diabetes mellitus with unspecified complications (Acute) Essential hypertension (Acute) Precordial chest pain (Acute) Past Medical History Medical History Basal cell carcinoma of scalp Tick bite of back Post-surgical hypothyroidism Obesity (BMI 30-39.9) Dermatitis History of thyroid cancer History of endometrial cancer Vitamin D deficiency Osteopenia Obstructive sleep apnea COPD (chronic obstructive pulmonary disease) Pure hypercholesterolemia Benign essential hypertension Diabetes mellitus Chronic obstructive pulmonary disease, unspecified Other and unspecified hyperlipidemia Type 2 diabetes mellitus with unspecified complications Essential hypertension Precordial chest pain Family History Family History Father No problems noted. Mother No problems noted. Surgical History Surgical History Hx of tubal ligation History of colonoscopy History of thyroidectomy History of hysterectomy History of section Social History Social History Housing: House Alcohol intake: current Alcohol intake frequency: holidays/special occasions only Patient Tobacco Use Status: Never used Tobacco e-Cigarette/Vaping Use: Never Used Second Hand Smoke Exposure: No Are you DNR?: No Advance Directives: No Advance Directives Information Provided: Yes Nutrition Risks: No Nutritional Risk service: No Current occupational status: retired Cognitive needs: No Hearing needs: No Vision needs: No Meds Allergies Allergy/AdvReac Type Severity Reaction Status Date / Time codeine [CODEINE] Allergy Unknown NAUSEA & Verified 03/08/23 10:36 VOMITING morphine Allergy Unknown UNKNOWN Verified 03/08/23 10:36 oxycodone [OxyContin] Allergy Unknown UNKNOWN Verified 03/08/23 10:36 Home Medications Medication Instructions Recorded Confirmed Last Taken Type acetaminophen 500 mg tablet 1,000 mg PO QID PRN Pain, Mild 03/14/20 03/08/23 Unknown History (Tylenol Extra Strength) diphenhydramine HCl 25 mg capsule 25 mg PO BEDTIME PRN Allergic 01/16/22 03/08/23 Unknown History (Benadryl) Reaction vitamin B comp and C no.3 15 mg-10 1 cap PO DAILY 01/16/22 03/08/23 Unknown History mg-50 mg-5 mg-300 mg capsule (B Complex Plus Vitamin C) latanoprost 0.005 % eye drops 1 drp ophthalmic (eye) BEDTIME 03/08/23 03/08/23 Unknown History Exam Pertinent Lab Results Pertinent Lab Results: Laboratory Tests 01/31/23 09:20 WBC 8.7 Hgb 12.7 Hct 39.5 Plt Count 323 Sodium 138 Potassium 4.2 Chloride 106 Carbon Dioxide 25 BUN 16 Creatinine 0.59 Assessment and Plan Assessment Anesthesia Assessment: Chart Reviewed Documented by User: Charlene Leon MD 03/08/23 11:12 HPI - Anesthesia Eval Anesthesia Pre-Procedure Meds Is the patient on any of the following meds?: Dulaglutide (Trulicity) (Last dose 02/26/23) If Yes to any meds - educate patient: Pt education - increased risk of aspiration PMFSH Active Problems Active Problems: All Active Problems (Updated 03/08/23b@ 09:52 by Charlene Leon MD) Blood in stool (Acute) Tick bite (Acute) Bilateral lower leg cellulitis (Acute) Poison isidro dermatitis (Acute) Cellulitis (Acute) Contact dermatitis (Acute) Cough (Acute) Screening for breast cancer (Acute) Basal cell carcinoma of scalp (Acute) Morbid obesity (Acute) Encounter for Medicare annual wellness exam (Acute) History of thyroid cancer (Acute) Post-surgical hypothyroidism (Acute) Obesity (BMI 30-39.9) (Acute) Vitamin D deficiency (Acute) Osteopenia (Acute) Obstructive sleep apnea (Acute) COPD (chronic obstructive pulmonary disease) (Acute) Pure hypercholesterolemia (Acute) Benign essential hypertension (Acute) Diabetes mellitus (Acute) Chronic obstructive pulmonary disease, unspecified (Acute) Other and unspecified hyperlipidemia (Acute) Type 2 diabetes mellitus with unspecified complications (Acute) Essential hypertension (Acute) Recent cold. Still with post nasal drip. No cough. no fever. No malaise Past Medical History Medical History Basal cell carcinoma of scalp Tick bite of back Post-surgical hypothyroidism Obesity (BMI 30-39.9) Dermatitis History of thyroid cancer History of endometrial cancer Vitamin D deficiency Osteopenia Obstructive sleep apnea COPD (chronic obstructive pulmonary disease) Pure hypercholesterolemia Benign essential hypertension Diabetes mellitus Chronic obstructive pulmonary disease, unspecified Other and unspecified hyperlipidemia Type 2 diabetes mellitus with unspecified complications Essential hypertension Precordial chest pain Family History Family History Father No problems noted. Mother No problems noted. Family history of problems with anesthesia: No Surgical History Surgical History Hx of tubal ligation History of colonoscopy History of thyroidectomy History of hysterectomy History of section History of Problems with Anesthesia: No Social History Social History Housing: House Alcohol intake: current Alcohol intake frequency: holidays/special occasions only Patient Tobacco Use Status: Never used Tobacco e-Cigarette/Vaping Use: Never Used Second Hand Smoke Exposure: No Are you DNR?: No Advance Directives: No Advance Directives Information Provided: Yes Nutrition Risks: No Nutritional Risk service: No Current occupational status: retired Cognitive needs: No Hearing needs: No Vision needs: No Meds Allergies Allergy/AdvReac Type Severity Reaction Status Date / Time codeine [CODEINE] Allergy Unknown NAUSEA & Verified 03/08/23 10:36 VOMITING morphine Allergy Unknown UNKNOWN Verified 03/08/23 10:36 oxycodone [OxyContin] Allergy Unknown UNKNOWN Verified 03/08/23 10:36 Home Medications Medication Instructions Recorded Confirmed Last Taken Type acetaminophen 500 mg tablet 1,000 mg PO QID PRN Pain, Mild 03/14/20 03/08/23 Unknown History (Tylenol Extra Strength) diphenhydramine HCl 25 mg capsule 25 mg PO BEDTIME PRN Allergic 01/16/22 03/08/23 Unknown History (Benadryl) Reaction vitamin B comp and C no.3 15 mg-10 1 cap PO DAILY 01/16/22 03/08/23 Unknown History mg-50 mg-5 mg-300 mg capsule (B Complex Plus Vitamin C) latanoprost 0.005 % eye drops 1 drp ophthalmic (eye) BEDTIME 03/08/23 03/08/23 Unknown History Exam Height,Weight and Vital Signs: Height 5 ft 2 in Weight 83.915 kg Vital Signs Temp Pulse Resp BP Pulse Ox O2 Del Method 03/08/23 10:33 98.0 F 96 18 122/76 95 Room Air Pertinent Lab Results Pertinent Lab Results: Laboratory Tests 01/31/23 09:20 WBC 8.7 Hgb 12.7 Hct 39.5 Plt Count 323 Sodium 138 Potassium 4.2 Chloride 106 Carbon Dioxide 25 BUN 16 Creatinine 0.59 Lab Results 03/08/23 Range/Units 10:30 POC Glucose 128 H (60-115) mg/dL Airway Mallampati Class: II TM Dist: >3cm Neck ROM: Full Loose/Missing/Broken Teeth: No Heart: RRR Lungs: CTAB. No wheezing Assessment and Plan Assessment Anesthesia Assessment: Anesthesia Plan Discussed Final Anesthetic Review Family History of Problems with Anesthesia: No History of Problems with Anesthesia: No NPO: Yes ASA Class: III Final Preanesthetic Review: No Changes in Pt Med Stat, Meds/Allgs Chart Reviewed, Consent Obtained/Reviewed and Anes Risks/Benef Reviewed Patient Risk: Intermediate Procedure Risk: Low Assessment/Block/Sedation in SS: Assess/Block/Sedation-SS Anesthetic Plan Anesthetic Plan: TIVA Disposition: Standard PACU
[2023-03-08 10:02] VITALS: BMI 33.8
[2023-03-08 10:33] VITALS: BP 122/76; PULSE 96; RESP 18; TEMP 36.7; O2SAT 95
--- NOTE | 2023-03-08 11:02 | PC.NURSE ---
dr. trujillo aware that patient began with a cold/cough/congestion/laryngitis on 02/27/23. patient continues to have raspy voice and occ. cough noted. lcta. 95%RA. no interventions at this time.
[2023-03-08 12:05] VITALS: BP 114/64; PULSE 100; RESP 16; TEMP 36.6; O2SAT 97
--- NOTE | 2023-03-08 12:05 | PM.OP ---
Brief Operative Note Date of Service: 03/08/23 Pre-op diagnosis: Rectal bleeding Post-op diagnosis: other (Internal hemorrhoids, Diverticulosis) Procedure: Colonoscopy to the cecum Surgeon: Everton Li MD Anesthesia: MAC Was an Estimator Paperboard Boxes used for this Procedure?: No Estimated blood loss (mL): 0 Pathology: none sent Condition: stable Disposition: PACU
[2023-03-08 12:20] VITALS: BP 140/74; PULSE 90; RESP 20; TEMP 36.2; O2SAT 96
--- NOTE | 2023-03-08 12:41 | OP_ITS ---
DATE OF SERVICE: 03/08/2023 SURGEON: Everton Li MD INDICATIONS: The patient presents for evaluation of intermittent hematochezia. Full consent has been obtained from her for this, including risks of bleeding and perforation. PREOPERATIVE DIAGNOSIS: Hematochezia. POSTOPERATIVE DIAGNOSIS: PROCEDURE PERFORMED: Colonoscopy to the cecum. ESTIMATED BLOOD LOSS: COMPLICATIONS: ANESTHESIA: Monitored anesthesia care. ASSISTANTS: SPECIMENS: POSTOPERATIVE DIAGNOSES: Hematochezia, diverticulosis, and internal hemorrhoids. DESCRIPTION OF PROCEDURE: The patient was placed in the left lateral decubitus position. The digital rectal exam revealed no abnormalities. The Olympus video pediatric colonoscope was entered into the rectum and advanced easily to the cecum. Once in the cecum, I did identify normal-appearing cecal pouch with appendiceal orifice and a normal-appearing ileocecal valve. There was transillumination of light deep in the right low quadrant. The entire cecum and ileocecal valve appeared normal. The scope was slowly withdrawn assessing all mucosal surfaces carefully. Preparation was excellent. I did not visualize any sign of polyps, colitis, nor angiodysplasia. There was a mild amount of sigmoid diverticulosis. In the rectum, scope was retroflexed visualizing internal hemorrhoids, but no other pathology. The rectal mucosa appeared normal. Scope was straightened and withdrawn from the patient. She tolerated the procedure well and was returned to the recovery area in stable condition. IMPRESSION: 1. Internal hemorrhoids. 2. Sigmoid diverticulosis. PLAN: Given today's negative exam and no family history of colorectal cancer, I do not think she would need any further colonoscopies from a screening standpoint. She will otherwise see me on a p.r.n. basis. This has been discussed with her daughter. MD ISA Connell/YAIR / [phone]
== END 2023-03-08 12:45 | disposition home or self-care (01) ==
PROVIDERS: PCP Internal Medicine; Visit Provider Internal Medicine
PROC: 0DJD8ZZ Inspection of Lower Intestinal Tract, Via Natural or Artificial Opening Endoscopic (ICD-10-PCS; CPT 45378; principal; 2023-03-08 10:30)
DX: K62.5 Hemorrhage of anus and rectum (principal); K59.00 Constipation, unspecified; K57.30 Diverticulosis of large intestine without perforation or abscess without bleeding; K64.8 Other hemorrhoids; I10 Essential (primary) hypertension; E78.5 Hyperlipidemia, unspecified; E03.9 Hypothyroidism, unspecified; E55.9 Vitamin D deficiency, unspecified; J44.9 Chronic obstructive pulmonary disease, unspecified; E66.9 Obesity, unspecified; Z68.35 Body mass index [BMI] 35.0-35.9, adult; M85.80 Other specified disorders of bone density and structure, unspecified site; G47.33 Obstructive sleep apnea (adult) (pediatric); E11.9 Type 2 diabetes mellitus without complications; Z79.84 Long term (current) use of oral hypoglycemic drugs; Z79.85 Long-term (current) use of injectable non-insulin antidiabetic drugs; Z99.89 Dependence on other enabling machines and devices; Z79.899 Other long term (current) drug therapy; Z88.5 Allergy status to narcotic agent; Z85.850 Personal history of malignant neoplasm of thyroid; Z85.42 Personal history of malignant neoplasm of other parts of uterus; Z98.890 Other specified postprocedural states
CPT/HCPCS: G0121; 82947; J1596; J2371; J2704

== ENCOUNTER 2023-03-13 09:45 | Outpatient (AMB) | payer MEDICARE, SELFPAY ==
--- NOTE | 2023-03-13 09:53 | MHC.OFFWIV ---
Intake Vital Signs 03/13/23 09:57 Height 5 ft 2 in Weight 190 lb BMI 34.7 BP 138/62 Blood Pressure Location Rt brachial Position Sitting Respiration 14 Pulse 76 Pulse Source Pulse Oximeter Pulse Oximetry (%) 97 Oxygen Delivery Method Room Air Intake Visit Reasons: cough Intake Note: Patient reports she has had a cold x15 days. Patient reports she experienced an unproductive cough and with her history of COPD she may need medication assistance with coughing the stuff out. Patient Tobacco Use Status: Never used Tobacco Allergies codeine [CODEINE] Allergy (Unknown, Verified 03/13/23 10:45) NAUSEA & VOMITING morphine Allergy (Unknown, Verified 03/13/23 10:45) UNKNOWN oxycodone [OxyContin] Allergy (Unknown, Verified 03/13/23 10:45) UNKNOWN Medication List - Last Reconciled 03/13/23 by ÁNGEL Lundy- acetaminophen (Tylenol Extra Strength) 1,000 mg PO QID PRN amlodipine 10 mg PO DAILY 90 days blood sugar diagnostic (FreeStyle Lite Strips) As directed once a day blood-glucose meter (FreeStyle Lite Meter kit) As directed cholecalciferol (vitamin D3) 50 mcg PO DAILY 90 days diphenhydramine HCl (Benadryl) 25 mg PO BEDTIME PRN dulaglutide (Trulicity) 1.5 mg (0.5 mL) subcut QWEEK hydrocortisone 2.5% 1 appl topical BID lancets As directed latanoprost 0.005% 1 drp ophthalmic (eye) BEDTIME levothyroxine 112 mcg PO DAILY 90 days lisinopril 40 mg PO DAILY metformin ER 1,000 mg (2 x 500 mg) PO BID 90 days simvastatin 5 mg PO QPM tiotropium bromide (Spiriva with HandiHaler) 1 cap inhalation DAILY 90 days vitamin B comp and C no.3 (B Complex Plus Vitamin C) 1 cap PO DAILY HPI HPI Comments History of Present Illness Details cough x 2 weeks exposed to sick grand dtr nonprod cough has copd and is worried; has rx for Spiriva however not taking as has not needed in a long time. Reports does not have a rescue inhaler as it never worked for her. to tx at home using cough gtt & mucinex w/o relief Negative COVID at home UTD on vaccines Denies fever, chills, hemoptysis. [facility] Medical History Basal cell carcinoma of scalp Tick bite of back Post-surgical hypothyroidism Obesity (BMI 30-39.9) Dermatitis History of thyroid cancer History of endometrial cancer Vitamin D deficiency Osteopenia Obstructive sleep apnea COPD (chronic obstructive pulmonary disease) Pure hypercholesterolemia Benign essential hypertension Diabetes mellitus Chronic obstructive pulmonary disease, unspecified Other and unspecified hyperlipidemia Type 2 diabetes mellitus with unspecified complications Essential hypertension Precordial chest pain Surgical History Hx of tubal ligation History of colonoscopy History of thyroidectomy History of hysterectomy History of section Family History Father No problems noted. Mother No problems noted. Social History Housing: House Alcohol intake: current Alcohol intake frequency: holidays/special occasions only Patient Tobacco Use Status: Never used Tobacco e-Cigarette/Vaping Use: Never Used Second Hand Smoke Exposure: No service: No Current occupational status: retired Cognitive needs: No Hearing needs: No Vision needs: No Review of Systems Const All systems reviewed & are unremarkable except as noted in HPI and below Physical Exam Vital Signs: Last Vital Signs Pulse 76 03/13/23 09:57 Resp 14 03/13/23 09:57 BP 138/62 03/13/23 09:57 Pulse Ox 97 03/13/23 09:57 Oxygen Delivery Method Room Air 03/13/23 09:57 BMI result Body Mass Index 34.7 Const Other: AWAKE ALERT ORIENTED NAD EYES/EARS/NOSE/THROAT NORMAL LS CTAB RRR Assessment & Plan Assessment & Plan (1) COPD exacerbation: Code(s): J44.1 - Chronic obstructive pulmonary disease with (acute) exacerbation Plan: . Plan . Medications: New benzonatate 100 mg PO TID PRN 30 caps 1RF cough 10 days budesonide 1 mg (2 mL) inhalation DAILY 30 days 60 mL 0RF azithromycin For 250 mg dose pack: take 500 mg today (day 1), then 250 mg for 4 days (days 2-5) PO 5 days 6 tabs 0RF Patient Instructions: TAKE MEDICATIONS DIRECTED IF NO IMPROVEMENT AFTER TX COMPLETION OR WORSENING OF SX, PLEASE RETURN OR CALL PULM DOC. Coding Level of Care Code Est Pt Level 4 (16194) Diagnoses COPD exacerbation J44.1 Time Spent (min) 30 Comment discussing tx plan, ddx & providing edu
[2023-03-13 09:57] VITALS: BP 138/62; PULSE 76; RESP 14; O2SAT 97; BMI 34.7
== END 2023-03-13 10:57 | disposition home or self-care (01) ==
PROVIDERS: PCP Internal Medicine; Visit Provider Nurse Practitioner Family
DX: J44.1 Chronic obstructive pulmonary disease with (acute) exacerbation (principal)
CPT/HCPCS: 99214

== ENCOUNTER 2023-06-04 09:15 | Outpatient (REF) | payer MEDICARE, SELFPAY ==
[2023-06-04 09:30] LABS: MANUAL DIFF FLAG NO
[2023-06-04 10:04] LABS: Basophils Absolute Auto 0.1 X10*3/uL (0.0-0.2); Basophils Percent Auto 0.6 % (0-2); Eosinophils Absolute Auto 0.3 X10*3/uL (0.0-0.4); Eosinophils Percent Auto 3.2 % (0-4); Hemoglobin 12.3 g/dl (12.0-16.0); Imm Gran Abs Auto 0.04 X10*3/uL (0.00-0.03); Imm Gran Pct Auto 0.4 % (0.0-0.4); Lymphocytes Absolute Auto 2.9 X10*3/uL (1.2-4.9); Lymphocytes Percent Auto 27.1 % (20-40); Mean Corpuscular HGB Conc 32.4 g/dl (31.0-35.0); Mean Corpuscular Volume 83.3 fL (80.0-98.0); Mean Platelet Volume 9.9 fL (9.4-12.3); Monocytes Absolute Auto 0.5 X10*3/uL (0.1-1.2); Neutrophils Absolute Auto 6.7 x10*3/uL (2.0-8.3); Neutrophils Percent Auto 63.7 % (45-73); Platelet Count 366 X10*3/uL (160-400); Red Blood Count 4.56 X10*6/uL (4.20-5.50); Red Cell Distribution Width 14.9 % (11.0-16.0); White Blood Count 10.5 X10*3/uL (4.8-10.8)
[2023-06-04 10:16] LABS: Appearance Urine Clear; Color Urine Dark Yellow; Glucose Urine UA Negative (Negative); Leukocyte Esterase Urine Trace (Negative); Nitrite Urine Negative (Negative); PH 5.5 (5.0-9.0); Specific Gravity - Urine >= 1.030 (1.005-1.025); UMIC TRIGGER UACC YES; Urine Blood Negative (Negative); Urine Ketones Negative (Negative); Urine Protein Trace mg/dL (Neg-Trace)
[2023-06-04 10:29] LABS: Estimated Average Glucose 126 mg/dL
[2023-06-04 10:41] LABS: Bacteria Urine None Seen (None Seen); Calcium Oxalate Crystals Urine Present; Hyaline Casts Urine 0-2 /LPF (0-2); RBC Urine 0-2 /HPF (0-2); Squamous Epithelial Cell Urine 0-2 /HPF (0-2); WBC Urine 0-5 /HPF (0-5)
[2023-06-04 10:50] LABS: Creatinine Urine 179.04 mg/dL; Microalbum/Creatinine Ratio Ur 17.3 ug/mg cr (<30)
[2023-06-04 11:01] LABS: Alanine Aminotransferase 16 U/L (0-31); Albumin Level 4.1 g/dL (3.5-5.0); Alkaline Phosphatase 68 U/L (39-117); Anion Gap 11 (12-20); Aspartate Amino Transferase 13 U/L (5-31); Bilirubin Total 0.4 mg/dL (0.0-1.0); Blood Urea Nitrogen 15 mg/dL (9-16); Calcium 9.4 mg/dL (8.4-10.2); Carbon Dioxide 24 mmol/L (22-29); Chloride 110 mmol/L (96-108); Cholesterol 142 mg/dL (<200); Estimated Glomerular Filt Rate > 60; Glucose Fasting 119 mg/dL (60-99); HDL Cholesterol 45 mg/dL (>40); LDL Cholesterol Calculated 86 mg/dL (<100); Potassium 3.7 mmol/L (3.3-5.1); Sodium 141 mmol/L (135-145); Triglycerides 57 mg/dL (<150)
[2023-06-04 11:07] LABS: Vitamin D 25-OH Total 50.9 ng/mL (>30)
== END 2023-06-04 09:16 | disposition home or self-care (01) ==
LOC: HO.LAB 09:15
PROVIDERS: PCP Internal Medicine; Visit Provider Internal Medicine
DX: I10 Essential (primary) hypertension (principal); E11.9 Type 2 diabetes mellitus without complications; E03.9 Hypothyroidism, unspecified; E78.00 Pure hypercholesterolemia, unspecified; E55.9 Vitamin D deficiency, unspecified
CPT/HCPCS: 36415; 80053; 80061; 81001; 82043; 82306; 82570; 83036; 84439; 84443; 85025

== ENCOUNTER 2023-06-07 10:35 | Outpatient (AMB) | payer MEDICARE, SELFPAY ==
[2023-06-07 10:38] VITALS: BP 130/60; PULSE 70; RESP 15; O2SAT 98; BMI 35.0
--- NOTE | 2023-06-07 10:38 | A.OFFPC_ITS ---
Vital Signs 06/07/23 10:38 Height 5 ft 2 in Weight 191 lb 6 oz BMI 35.0 BP 130/60 Blood Pressure Location Lt brachial Position Sitting Respiration 15 Pulse 70 Pulse Source Pulse Oximeter Pulse Oximetry (%) 98 Oxygen Delivery Method Room Air Intake Visit Reasons: 4mth f/u Intake Note: The patient is here for a follow-up appointment after four months. Today's concern involves bilateral knee wound infection and a left eye injury resulting from a fall that occurred on May 31, 2023, while using the treadmill. Sports Athletic Trainer Required: No Accompanied by: Self / Same As Patient Allergies codeine [CODEINE] Allergy (Unknown, Verified 06/07/23 11:22) NAUSEA & VOMITING morphine Allergy (Unknown, Verified 06/07/23 11:22) UNKNOWN oxycodone [OxyContin] Allergy (Unknown, Verified 06/07/23 11:22) UNKNOWN Medication List - Last Reconciled 06/07/23 by Giovanni Burnette MD acetaminophen (Tylenol Extra Strength) 1,000 mg PO QID PRN amlodipine 10 mg PO DAILY 90 days benzonatate 100 mg PO TID PRN 10 days blood sugar diagnostic (FreeStyle Lite Strips) As directed once a day blood-glucose meter (FreeStyle Lite Meter kit) As directed budesonide 1 mg (2 mL) inhalation DAILY 30 days cholecalciferol (vitamin D3) 50 mcg PO DAILY 90 days diphenhydramine HCl (Benadryl) 25 mg PO BEDTIME PRN dulaglutide 1.5 mg subcut QWEEK 4 weeks hydrocortisone 2.5% 1 appl topical BID lancets As directed latanoprost 0.005% 1 drp ophthalmic (eye) BEDTIME levothyroxine 112 mcg PO DAILY 90 days lisinopril 40 mg PO DAILY metformin ER 1,000 mg (2 x 500 mg) PO BID 90 days simvastatin 5 mg PO QPM umeclidinium 62.5 mcg/actuation (Incruse Ellipta) 1 inh inhalation DAILY vitamin B comp and C no.3 (B Complex Plus Vitamin C) 1 cap PO DAILY Tobacco use date assessed: 02/05/23 Dental Screening Dental Screen Date: 02/05/23 HPI 4mth f/u HPI Details Patient comes in today for her follow up visit States that she fell while using her treadmill over a week ago and sustained some injuries to both of her knees as well as over her left eye States that she has been cleaning and dressing the wounds on her knees regularly for the past week but thinks that the wounds are getting worse as they feel very sore and she has noticed some increased redness around the edges of the wounds She also appears to have significant conjunctival hemorrhage in her left eye but states that other than some mild pain around the eye, her vision is fine She does have an appointment scheduled with her eye doctor next week to have her left eye checked She denies any fever, headaches or dizziness Denies any chest pains, no SOB No nausea/vomiting, no abdominal pain No change in bowel habits noted Needs her glucometer test strips Rx refilled Had her follow up labs done a few days ago - to discuss her results [facility] History Basal cell carcinoma of scalp Tick bite of back Post-surgical hypothyroidism Obesity (BMI 30-39.9) Dermatitis History of thyroid cancer History of endometrial cancer Vitamin D deficiency Osteopenia Obstructive sleep apnea COPD (chronic obstructive pulmonary disease) Pure hypercholesterolemia Benign essential hypertension Diabetes mellitus Chronic obstructive pulmonary disease, unspecified Other and unspecified hyperlipidemia Type 2 diabetes mellitus with unspecified complications Essential hypertension Precordial chest pain Surgical History Hx of tubal ligation History of colonoscopy History of thyroidectomy History of hysterectomy History of section Family History Father No problems noted. Mother No problems noted. Social History Housing: House Alcohol intake: current Alcohol intake frequency: holidays/special occasions only Patient Tobacco Use Status: Never used Tobacco e-Cigarette/Vaping Use: Never Used Second Hand Smoke Exposure: No service: No Current occupational status: retired Cognitive needs: No Hearing needs: No Vision needs: No Questionnaire PHQ-9 Over the last 2 weeks, how often have you been bothered by any of the following problems? 1. Little interest or pleasure in doing things: not at all 2. Feeling down, depressed, or hopeless: not at all 3. Trouble falling or staying asleep, or sleeping too much: several days 4. Feeling tired or having little energy: several days 5. Poor appetite or overeating: not at all 6. Feeling bad about yourself - or that you are a failure or have let yourself or your family down: not at all 7. Trouble concentrating on things, such as reading the newspaper or watching television: not at all 8. Moving or speaking so slowly that other people could have noticed. Or the opposite - being so fidgety or restless that you have been moving around a lot more than usual: not at all 9. Thoughts that you would be better off or of hurting yourself in some way: not at all Total score: 2 Depression Screening Interpretation: Negative Depression Screening Done: Yes 35519 - PHQ-9 Billing: Yes Source: Developed by Drs. Everton Ghosh, Sumaya Becerra, Umang Ruano and colleagues, with an educational annette from [employer]. Thrive Questionnaire Date Thrive assessed: 06/07/23 I am a: Patient What is your living situation today?: I have a steady place to live Within the past 12 months, did the food you bought not last and you didn't have the money to get more?: Never true Within the past 12 months, did you worry whether your food would run out before you got money to buy more?: Never true Do you have trouble paying for medicines?: No Do you have trouble getting transportation to medical appointments?: No Do you have trouble paying your heating and electricity bill?: No Do you have trouble taking care of your child, family member or friend?: No Do you have trouble with day-to-day activities such as bathing, preparing meals, shopping, managing finances, etc.?: No Are you currently unemployed and looking for a job?: No Are you interested in more education?: No Please select the resources that you would like help with: None Currently or been in a relationship where the following occur: no concerns reported THRIVE Score: 0 AUDIT C Alcohol Use Questionnaire (AUDIT-C) 1. How often do you have a drink containing alcohol?: Never 3. How often do you have six or more drinks on one occasion?: Never Total Score: 0 Score Reviewed/Action Taken: Yes RAVINDER-7 AMB Questionnaire RAVINDER-7 Date RAVINDER - 7 assessed: 02/05/23 Source: Developed by Drs. Everton Ghosh, Sumaya Becerra, Umang Ruano and colleagues, with an educational annette from [employer]. Review of Systems Const Denies chills, Denies fatigue, Denies fever(s) and Denies headache(s) Eyes Denies blurry vision and Reports eye pain (mild, around the left eye) ENT Denies dysphagia, Denies dizziness, Denies otalgia, Denies headache(s), Denies odynophagia and Denies sore throat Card Denies chest pain, Denies palpitations and Denies dyspnea Resp Denies chest congestion, Denies cough and Denies dyspnea GI Denies abdominal pain, Denies hematochezia, Reports constipation (at times), Denies dysphagia, Denies heartburn, Denies diarrhea, Denies nausea, Denies odynophagia and Denies vomiting Denies difficulty voiding, Denies nocturia, Denies dysuria and Denies urinary urgency Musc Denies back pain, Reports arthralgias (over both knees, mostly around the injuries on her knees) and Denies joint swelling Skin/Breast Details: (+) painful sores/wounds over the patellar area on both knees Neuro Denies dizziness and Denies headache(s) Psych Reports anxiety Endo Denies fatigue and Denies palpitations Physical exam (Primary Care) Vital Signs: Last Vital Signs Pulse 70 06/07/23 10:38 Resp 15 06/07/23 10:38 BP 130/60 06/07/23 10:38 Pulse Ox 98 06/07/23 10:38 Oxygen Delivery Method Room Air 06/07/23 10:38 BMI result Body Mass Index 35.0 Tobacco/Smoking Status: Tobacco use Status Tobacco use date assessed 02/05/23 06/07/23 10:42 Patient Tobacco Use Status Never used Tobacco 06/07/23 10:42 e-Cigarette/Vaping Use Never Used 06/07/23 10:42 Depression Screening Interpretation: Negative Thrive Assessment: Date of Thrive Assessment Date Thrive assessed 02/05/23 06/07/23 10:42 Currently or been in a relationship where the following occur: no concerns reported Const General: no acute distress and alert HENMT Ears: TM's normal bilaterally and EAC's normal Throat: Yes posterior oropharynx normal and Yes tonsils normal (no TP congestion noted) Eyes Periorbital: periorbital findings normal Conjunctivae: conjunctival abnormal left subconjunctival hemorrhage EOM: EOMs intact bilaterally Neck Neck: Yes no lymphadenopathy and Yes supple Thyroid: Thyroid normal Resp Auscultation: clear to auscultation bilaterally, no rales, no rhonchi and no wheezes Cardio Rate: regular rate Rhythm: regular rhythm Heart sounds: no murmurs GI Palpation (GI): Soft to palpation and nontender Auscultation: normal bowel sounds General: Yes no CVA tenderness Back/Spine/Pelvis Back: no CVA tenderness Skin Other: (+) abrasion wounds over both knees, with increasing erythema around the edges of the wounds; there is also minimal clear/serous oozing noted from both wounds Extrem General: Yes no clubbing, cyanosis or edema Results Reviewed Results Reviewed: Laboratory Tests 06/04/23 06/04/23 09:24 09:28 WBC 10.5 Hgb 12.3 Hct 38.0 Plt Count 366 Sodium 141 Potassium 3.7 Creatinine 0.57 Estimated GFR > 60 Fasting Glucose 119 H Hemoglobin A1c % 6.0 Calcium 9.4 AST 13 ALT 16 Triglycerides 57 Cholesterol 142 LDL Cholesterol, Calc 86 HDL Cholesterol 45 25-OH Vitamin D Total 50.9 TSH 0.60 Free T4 1.40 Ur Specific [place] >= 1.030 H Urine Protein Trace Urine Glucose (UA) Negative Urine Blood Negative Ur Leukocyte Esterase Trace H Microalb/Creat Ratio 17.3 Assessment and Plan Assessment & Plan (1) Pure hypercholesterolemia: Code(s): E78.00 - Pure hypercholesterolemia, unspecified Plan: Results of her labs done a few days ago reviewed and discussed with patient Reinforced low cholesterol diet Continue Simvastatin 5 mg QD Will recheck her labs and fasting lipids in 4 months for follow up (2) Diabetes mellitus: Code(s): E11.9 - Type 2 diabetes mellitus without complications Qualifiers: Diabetes mellitus type: type 2 Diabetes mellitus solar project coordination specialist insulin use: without detention use Diabetes mellitus complication status: without complication Qualified Code(s): E11.9 - Type 2 diabetes mellitus without complications Plan: Her HgbA1c has improved to 6.0% on her labs done a few days ago (was at 6.2% a few months ago) - goal is <7.0% Reinforced diabetic diet She was doing well on Metformin ER 1000 mg BID and Trulicity 1.5 mg SQ once a week but has not been able to get her Trulicity 1.5 mg Rx filled lately due to unavailability and her insurance has thus far refused to cooperate and cover 2 x the 0.75 mg dose, so she is requestting to try going back down to 0.75 mg weekly dose for now and she how she does on the lower dose - new Rx sent Follow up with endocrinology as scheduled (3) Benign essential hypertension: Code(s): I10 - Essential (primary) hypertension Plan: Reinforced low sodium diet - goal is systolic BP of at least 130 to 140 mm or less Continue Amlodipine 10 mg QD and Lisinopril 40 mg QD (4) COPD (chronic obstructive pulmonary disease): Comment: PFT done in December 2011 showed (+) moderately severe obstructive airway disorder with no reversibility seen with bronchodilator Tx Code(s): J44.9 - Chronic obstructive pulmonary disease, unspecified Qualifiers: COPD type: unspecified COPD Qualified Code(s): J44.9 - Chronic obstructive pulmonary disease, unspecified Plan: Stable - COPD is mostly mild and patient was reportedly advised by Dr. Ma previously that she can try stop her Spiriva although patient states that she feels better using her Spiriva so she prefers to continue on it at 1 inhalation QD Chest x-rays done last year came out normal Follow up with pulmonary as scheduled (5) Post-surgical hypothyroidism: Code(s): E89.0 - Postprocedural hypothyroidism Plan: TFTs were normal on her labs done a few days ago - will continue to monitor her TFTs regularly Continue Levothyroxine 112 mcg QD Follow up with endocrinology as scheduled (6) Obstructive sleep apnea: Comment: uses cpap Code(s): G47.33 - Obstructive sleep apnea (adult) (pediatric) Plan: Continue using her CPAP device when sleeping at night daily (7) Wound of lower extremity: Comment: has abrasion wounds over both knees that appear to be getting worse Code(s): S81.809A - Unspecified open wound, unspecified lower leg, initial encounter Qualifiers: Encounter type: sequela Laterality: unspecified laterality Qualified Code(s): S81.809S - Unspecified open wound, unspecified lower leg, sequela Plan: Will start her empirically on Doxycycline 100 mg BID x 7 days Have instructed patient to continue with daily wound care for now but will also refer her to the [facility]ound Clinic for further evaluation and management (8) Conjunctival hemorrhage of left eye: Code(s): H11.32 - Conjunctival hemorrhage, left eye Plan: Her vision appears unaffected and ROM of the left eye appears to be normal Advised that uncomplicated conjunctival hemorrhage is often benign and should clear up with no residual issues but she has an appointment to see her eye doctor next week and she is reminded to keep that appointment so they can at least verify that there is nothing else of concern with her recent eye injury (9) History of thyroid cancer: Comment: (+) papillary thyroid cancer back in the 70s Code(s): Z85.850 - Personal history of malignant neoplasm of thyroid Plan: Follow up with endocrinology and oncology as scheduled for continuing surveillance (10) Osteopenia: Code(s): M85.80 - Other specified disorders of bone density and structure, unspecified site Qualifiers: Osteopenia location: multiple sites Qualified Code(s): M85.89 - Other specified disorders of bone density and structure, multiple sites Plan: BMD done back in 12/2015 showed findings consistent with osteopenia Repeat BMD done on 06/15/21 revealed findings mostly unchanged from previous Patient is encouraged again to continue with regular exercise and physical activity to help maintain her bone density She was on oral bisphosphonate Tx for over 5 years and Rx was discontinued back in 2018 (11) Vitamin D deficiency: Code(s): E55.9 - Vitamin D deficiency, unspecified Plan: Continue Vitamin D3 2000 units QD (12) Basal cell carcinoma of scalp: Code(s): C44.41 - Basal cell carcinoma of skin of scalp and neck Plan: Diagnosed by dermatology; S/P surgical excision in July 2021 Follow up with dermatology as scheduled for continuing surveillance (13) Obesity (BMI 30-39.9): Code(s): E66.9 - Obesity, unspecified Plan: Reinforced diet/exercise as tolerated/lose weight Plan Follow up in 4 months Orders: Referrals Wound Care Referral S81.646G - Unspecified open wound, unspecified lower leg, initial encounter Medications: New doxycycline monohydrate 100 mg PO BID 7 days 14 caps 0RF Changed From dulaglutide 1.5 mg subcut QWEEK 4 weeks 4 mL 2RF To dulaglutide 0.75 mg (0.5 mL) subcut QWEEK 4 weeks 2 mL 2RF Refilled blood sugar diagnostic (FreeStyle Lite Strips) As directed once a day 50 ea 11RF E11.9 - Type 2 diabetes mellitus without complications Coding Level of Care Code Est Pt Level 4 (59150) Diagnoses Pure hypercholesterolemia E78.00 Type 2 diabetes mellitus without complication, without long-term current use of insulin E11.9 Diabetes mellitus type: type 2 Diabetes mellitus detention insulin use: without solar project coordination specialist use Diabetes mellitus complication status: without complication Benign essential hypertension I10 Chronic obstructive pulmonary disease, unspecified COPD type J44.9 COPD type: unspecified COPD Post-surgical hypothyroidism E89.0 Obstructive sleep apnea G47.33 Wound of lower extremity, unspecified laterality, sequela S81.809S Encounter type: sequela Laterality: unspecified laterality Conjunctival hemorrhage of left eye H11.32 History of thyroid cancer Z85.850 Osteopenia of multiple sites M85.89 Osteopenia location: multiple sites Vitamin D deficiency E55.9 Basal cell carcinoma of scalp C44.41 Obesity (BMI 30-39.9) E66.9
== END 2023-06-07 11:38 | disposition home or self-care (01) ==
PROVIDERS: PCP Internal Medicine; Visit Provider Internal Medicine
DX: E78.00 Pure hypercholesterolemia, unspecified (principal); E11.9 Type 2 diabetes mellitus without complications; I10 Essential (primary) hypertension; J44.9 Chronic obstructive pulmonary disease, unspecified; E89.0 Postprocedural hypothyroidism; G47.33 Obstructive sleep apnea (adult) (pediatric); S81.809S Unspecified open wound, unspecified lower leg, sequela; H11.32 Conjunctival hemorrhage, left eye; Z85.850 Personal history of malignant neoplasm of thyroid; M85.89 Other specified disorders of bone density and structure, multiple sites; E55.9 Vitamin D deficiency, unspecified; C44.41 Basal cell carcinoma of skin of scalp and neck
CPT/HCPCS: 99214

== ENCOUNTER 2023-06-19 08:01 | Outpatient (RCR) | payer MEDICARE, SELFPAY | END 2023-08-01 12:40 | disposition home or self-care (01) | LOC: HO.WCC 08:01 | PROVIDERS: PCP Internal Medicine; Visit Provider Surgery | DX: Z09 Encounter for follow-up examination after completed treatment for conditions other than malignant neoplasm (principal); L24.89 Irritant contact dermatitis due to other agents; J44.9 Chronic obstructive pulmonary disease, unspecified; I10 Essential (primary) hypertension; E11.9 Type 2 diabetes mellitus without complications; Z79.84 Long term (current) use of oral hypoglycemic drugs | CPT/HCPCS: 99212 ==

== ENCOUNTER 2023-08-19 09:36 | Outpatient (AMB) | payer MEDICARE, SELFPAY ==
[2023-08-19 09:46] VITALS: BP 146/60; PULSE 72; RESP 15; TEMP 36.5; O2SAT 99; BMI 35.4
--- NOTE | 2023-08-19 09:46 | AM.OFFWIN_ITS ---
Intake Vital Signs 08/19/23 09:46 Height 5 ft 2 in Weight 193 lb 8 oz BMI 35.4 BP 146/60 H Blood Pressure Location Rt brachial Position Sitting Respiration 15 Pulse 72 Pulse Source Pulse Oximeter Temp 97.7 F Temp Source Temporal Artery Scan Pulse Oximetry (%) 99 Oxygen Delivery Method Room Air Intake Visit Reasons: Poison isidro Patient Tobacco Use Status: Never used Tobacco Mail List Librarian Required: No Accompanied by: Self / Same As Patient Allergies codeine [CODEINE] Allergy (Unknown, Verified 08/19/23 10:10) NAUSEA & VOMITING morphine Allergy (Unknown, Verified 08/19/23 10:10) UNKNOWN oxycodone [OxyContin] Allergy (Unknown, Verified 08/19/23 10:10) UNKNOWN Medication List - Last Reconciled 08/19/23 by JIMMY LundyP- acetaminophen (Tylenol Extra Strength) 1,000 mg PO QID PRN amlodipine 10 mg PO DAILY 90 days blood sugar diagnostic (FreeStyle Lite Strips) As directed once a day blood-glucose meter (FreeStyle Lite Meter kit) As directed budesonide 1 mg (2 mL) inhalation DAILY 30 days cholecalciferol (vitamin D3) 50 mcg PO DAILY 90 days clobetasol 0.05% 1 appl topical BID diphenhydramine HCl (Benadryl) 25 mg PO BEDTIME PRN dulaglutide 0.75 mg (0.5 mL) subcut QWEEK 4 weeks hydrocortisone 2.5% 1 appl topical BID lancets As directed latanoprost 0.005% 1 drp ophthalmic (eye) BEDTIME levothyroxine 112 mcg PO DAILY 90 days lisinopril 40 mg PO DAILY metformin ER 1,000 mg (2 x 500 mg) PO BID 90 days simvastatin 5 mg PO QPM umeclidinium 62.5 mcg/actuation (Incruse Ellipta) 1 inh inhalation DAILY vitamin B comp and C no.3 (B Complex Plus Vitamin C) 1 cap PO DAILY Do you need a note to return to daycare/school/sports/work: No HPI HPI Comments History of Present Illness Details Here today for c/o poison isidro happens every year affecting bilat arms; has since spread to chin started on Saturday after gardening has been using topical clobetasol w/o relief and OTC skin scrubs to dry Has responded well to prednisone in the past. [facility] Medical History Basal cell carcinoma of scalp Tick bite of back Post-surgical hypothyroidism Obesity (BMI 30-39.9) Dermatitis History of thyroid cancer History of endometrial cancer Vitamin D deficiency Osteopenia Obstructive sleep apnea COPD (chronic obstructive pulmonary disease) Pure hypercholesterolemia Benign essential hypertension Diabetes mellitus Chronic obstructive pulmonary disease, unspecified Other and unspecified hyperlipidemia Type 2 diabetes mellitus with unspecified complications Essential hypertension Precordial chest pain Surgical History Hx of tubal ligation History of colonoscopy History of thyroidectomy History of hysterectomy History of section Family History Father No problems noted. Mother No problems noted. Social History Housing: House Alcohol intake: current Alcohol intake frequency: holidays/special occasions only Patient Tobacco Use Status: Never used Tobacco e-Cigarette/Vaping Use: Never Used Second Hand Smoke Exposure: No service: No Current occupational status: retired Cognitive needs: No Hearing needs: No Vision needs: No Review of Systems Const All systems reviewed & are unremarkable except as noted in HPI and below Physical Exam Vital Signs: Last Vital Signs Temp 97.7 F 08/19/23 09:46 Pulse 72 08/19/23 09:46 Resp 15 08/19/23 09:46 BP 146/60 H 08/19/23 09:46 Pulse Ox 99 08/19/23 09:46 Oxygen Delivery Method Room Air 08/19/23 09:46 BMI result Body Mass Index 35.4 Const Other: Awake alert oriented Rash consistent with allergic dermatitis affecting bilateral arms upper and lower aspects, very scant to right chin No secondary signs of infection Assessment & Plan Assessment & Plan (1) Poison isidro dermatitis: Code(s): L23.7 - Allergic contact dermatitis due to plants, except food Plan . Medications: New prednisone 5 tabs x 2 days, 4 tabs x 2 days, 3 tabs x 2 days, 2 tabs x 2 days, 1 tab x 2 days and then STOP. 10 mg PO DIRECTED 10 days 30 tabs 0RF Patient Instructions: Advised to take the medication daily with food. If new lesions crop up while on the taper advised to return to the office as we may need to hold the taper and/or extend the taper to prevent recurrence. Advised to cover the areas to prevent spread using something like a Tegaderm. Wash linen to also help prevent spread. Continue to use the [id number] skin scrubs to help protect the rest of your skin. Do your best to avoid contact. Coding Level of Care Code Est Pt Level 3 (08244) Diagnoses Poison isidro dermatitis L23.7
== END 2023-08-19 10:18 | disposition home or self-care (01) ==
PROVIDERS: PCP Internal Medicine; Visit Provider Nurse Practitioner Family
DX: L23.7 Allergic contact dermatitis due to plants, except food (principal)
CPT/HCPCS: 99213

== ENCOUNTER 2023-09-09 04:21 | Emergency (ER) | payer MEDICARE, SELFPAY ==
[2023-09-09 04:33] VITALS: BP 143/71; PULSE 78; RESP 18; TEMP 36.6; O2SAT 96; BMI 36.3
--- NOTE | 2023-09-09 05:58 | ED_ITS ---
HPI - General Adult General Chief complaint: Skin/Abscess/Foreign Body Stated complaint: poison daisha Time Seen by Provider: 09/09/23 05:58 History of Present Illness ED Provider: Zora ROSARIO narrative: The patient is a 73-year-old woman who believes she was exposed to poison daisha several weeks ago. She says that she developed an itchy rash on much of her body. She says a couple of weeks ago she went to an urgent care and was prescribed a tapering course of prednisone which she completed. She thinks that maybe she felt a little bit better while on the prednisone. The prednisone ended a few days ago. She now feels the rash is getting worse again. It is v carlos itchy. She has a down her arms, her trunk, and her legs. She has had no fever, sweats, chills. She is a diabetic and says that when she was on the prednisone her blood sugars went as high as 200 which is unusually high for her. Related Data Home Medications ?Medication ?Instructions ?Recorded ?Confirmed acetaminophen 500 mg tablet 1,000 mg PO QID PRN Pain, Mild 03/14/20 08/19/23 (Tylenol Extra Strength) diphenhydramine HCl 25 mg capsule 25 mg PO BEDTIME PRN Allergic 01/16/22 08/19/23 (Benadryl) Reaction vitamin B comp and C no.3 15 mg-10 1 cap PO DAILY 01/16/22 06/07/23 mg-50 mg-5 mg-300 mg capsule (B Complex Plus Vitamin C) latanoprost 0.005 % eye drops 1 drp ophthalmic (eye) BEDTIME 03/08/23 08/19/23 clobetasol 0.05 % topical gel 1 appl topical BID 08/19/23 08/19/23 Previous Rx's ?Medication ?Instructions ?Recorded blood-glucose meter (FreeStyle #1 ea 04/13/20 Lite Meter kit) lancets 28 gauge #300 ea 05/16/20 cholecalciferol (vitamin D3) 50 50 mcg PO DAILY 90 days #90 caps 09/19/20 mcg (2,000 unit) capsule hydrocortisone 2.5 % topical 1 appl topical BID #20 grams 09/17/22 ointment lisinopril 40 mg tablet 40 mg PO DAILY #90 tabs 02/28/23 budesonide 1 mg/2 mL suspension 1 mg (2 mL) inhalation DAILY 30 03/13/23 for nebulization days #60 mL umeclidinium 62.5 mcg/actuation 1 inh inhalation DAILY #30 ea 04/24/23 blister powder for inhalation (Incruse Ellipta) amlodipine 10 mg tablet 10 mg PO DAILY 90 days #90 tabs 05/22/23 metformin 500 mg tablet,extended 1,000 mg (2 x 500 mg) PO BID 90 05/22/23 release 24 hr days #360 tabs blood sugar diagnostic (FreeStyle #50 ea 06/07/23 Lite Strips) levothyroxine 112 mcg tablet 112 mcg PO DAILY 90 days #90 tabs 07/31/23 simvastatin 5 mg tablet 5 mg PO QPM #90 tabs 07/31/23 prednisone 10 mg tablet 10 mg PO DIRECTED 10 days #30 08/19/23 tabs dulaglutide 0.75 mg/0.5 mL 0.75 mg (0.5 mL) subcut QWEEK 4 08/31/23 subcutaneous pen injector weeks #2 mL prednisone 5 mg tablet 5 mg PO DIRECTED #78 tabs 09/09/23 Allergies Allergy/AdvReac Type Severity Reaction Status Date / Time codeine [CODEINE] Allergy Unknown NAUSEA & Verified 09/09/23 04:37 VOMITING morphine Allergy Unknown UNKNOWN Verified 09/09/23 04:37 oxycodone [OxyContin] Allergy Unknown UNKNOWN Verified 09/09/23 04:37 Review of Systems Review of Systems: Yes all other systems are reviewed and are negative PMFSH Past Medical History Medical History Basal cell carcinoma of scalp Tick bite of back Post-surgical hypothyroidism Obesity (BMI 30-39.9) Dermatitis History of thyroid cancer History of endometrial cancer Vitamin D deficiency Osteopenia Obstructive sleep apnea COPD (chronic obstructive pulmonary disease) Pure hypercholesterolemia Benign essential hypertension Diabetes mellitus Chronic obstructive pulmonary disease, unspecified Other and unspecified hyperlipidemia Type 2 diabetes mellitus with unspecified complications Essential hypertension Precordial chest pain Surgical History Hx of tubal ligation History of colonoscopy History of thyroidectomy History of hysterectomy History of section Family History Family History Father No problems noted. Mother No problems noted. Social History Social History Housing: House Alcohol intake: current Alcohol intake frequency: holidays/special occasions only Patient Tobacco Use Status: Never used Tobacco e-Cigarette/Vaping Use: Never Used Second Hand Smoke Exposure: No Advance Directives: No Advance Directives Information Provided: No service: No Current occupational status: retired Cognitive needs: No Hearing needs: No Vision needs: No Physical Exam ED Vital Signs: Vital Signs - 24 hr 09/09/23 04:33 09/09/23 06:24 Temperature 97.9 F 97.9 F Pulse Rate 78 72 Respiratory Rate 18 16 Blood Pressure 143/71 H 141/65 H Pulse Oximetry 96 97 Oxygen Delivery Method Room Air Room Air BMI result Body Mass Index 36.3 Const Other: The patient was sleeping when I walked in the room. She woke easily. She did not seem in acute distress. HENMT Other: Face is symmetrical. Mucous membranes moist. No rash on the face. Eyes Other: Pupils are round equal, conjunctivae are clear Neck Other: Moving her neck easily Resp Effort & Inspection: normal respiratory effort Auscultation: clear to auscultation bilaterally Cardio Rate: regular rate Rhythm: regular rhythm Heart sounds: S1 normal heart sound present and S2 normal heart sound present Skin Other: The patient has a dry looking erythematous patchy rash on her arms, her trunk, and her legs. It is very irregular. No definite vesicles. No weeping. Neuro Other: The patient is awake and alert with a normal mental status. Cranial nerves are intact. She moves her extremities normally. Extrem Other: No peripheral edema Medical Decision Making Medical Decision Making MDM Narrative: The patient presents with a persistent itchy rash that she believes began is poison daisha. I suspect this is still a poison daisha rash. She will be placed on another prednisone taper. Discharge Plan Discharge Clinical Impression: Toxicodendron dermatitis Patient Disposition: Home, Self-Care Instructions: Contact Dermatitis (ED), Poison Daisha (ED) Additional Instructions: I think this is still a case of poison daisha. I have sent a prescription for an additional tapering dose of prednisone. You were given 60 mg here in the emergency room today. Tomorrow take another dose of 60 mg (12 tablets). Then you will take a slightly smaller dose each day until you are done. Washing with Fels-Naptha soap might theoretically be helpful although it may be too late. You may use antihistamines to see if they are helpful for the itchiness. You may use nonsedating antihistamines like loratadine or cetirizine. Benadryl would be a sedating antihistamine. Please stay in touch with your regular doctor for additional advice as needed. Return to the emergency room if worse. Prescriptions: New prednisone 5 mg tablet 5 mg PO DIRECTED Qty: 78 0RF Rx Instructions: Take 12 tablets by mouth daily for 1 day, then take 11 tablets by mouth daily for 1 day, then 10 tablets by mouth daily for 1 day, continue taking 1 tablet less per day until done. No Action (DME) lancets 28 gauge misc See Rx Instructions topical TID Qty: 300 2RF Rx Instructions: As directed lisinopril 40 mg tablet 40 mg PO DAILY Qty: 90 3RF Incruse Ellipta 62.5 mcg/actuation blister with device 1 inh inhalation DAILY Qty: 30 11RF amlodipine 10 mg tablet 10 mg PO DAILY 90 Days Qty: 90 3RF metformin 500 mg tablet extended release 24 hr 1,000 mg PO BID 90 Days Qty: 360 1RF simvastatin 5 mg tablet 5 mg PO QPM Qty: 90 1RF levothyroxine 112 mcg tablet 112 mcg PO DAILY 90 Days Qty: 90 3RF dulaglutide 0.75 mg/0.5 mL pen injector 0.75 mg subcut QWEEK 28 Days Qty: 2 2RF latanoprost 0.005 % drops 1 drp ophthalmic (eye) BEDTIME acetaminophen [Tylenol Extra Strength] 500 mg tablet 1,000 mg PO QID PRN (Reason: Pain, Mild) B Complex Plus Vitamin C 10-65-75-5-300 mg capsule 1 cap PO DAILY Rx Instructions: give with food (meal/snack) diphenhydramine HCl [Benadryl] 25 mg capsule 25 mg PO BEDTIME PRN (Reason: Allergic Reaction) (DME) FreeStyle Lite Strips Strip See Rx Instructions .ROUTE .MEDSUPPLY Qty: 50 11RF Rx Instructions: As directed once a day budesonide 1 mg/2 mL suspension for nebulization 1 mg inhalation DAILY 30 Days Qty: 60 0RF clobetasol 0.05 % gel 1 appl topical BID prednisone 10 mg tablet 10 mg PO DIRECTED 10 Days Qty: 30 0RF Rx Instructions: 5 tabs x 2 days, 4 tabs x 2 days, 3 tabs x 2 days, 2 tabs x 2 days, 1 tab x 2 days and then STOP. hydrocortisone 2.5 % ointment 1 appl topical BID Qty: 20 0RF (DME) blood-glucose meter [FreeStyle Lite Meter] Kit See Rx Instructions .ROUTE .MEDSUPPLY Qty: 1 0RF Rx Instructions: As directed cholecalciferol (vitamin D3) 50 mcg (2,000 unit) capsule 50 mcg PO DAILY 90 Days Qty: 90 1RF Referrals: Giovanni Burnette MD [Primary Care Provider] - (Poison daisha) Print Language: Mohawk
[2023-09-09 06:24] VITALS: BP 141/65; PULSE 72; RESP 16; TEMP 36.6; O2SAT 97
[2023-09-09] MEDS: predniSONE 20 MG TABLET 60 MG PO (06:37)
[2023-09-09 06:39] VITALS: BP 138/76; PULSE 76; RESP 16; TEMP 36.8; O2SAT 97
== END 2023-09-09 06:54 | disposition home or self-care (01) ==
PROVIDERS: Emergency Provider Emergency Medicine; PCP Internal Medicine
DX: L23.7 Allergic contact dermatitis due to plants, except food (principal); Z79.899 Other long term (current) drug therapy
CPT/HCPCS: 99283

== ENCOUNTER 2023-10-04 09:43 | Outpatient (REF) | payer MEDICARE, SELFPAY ==
[2023-10-04 10:01] LABS: MANUAL DIFF FLAG NO
[2023-10-04 11:02] LABS: Basophils Percent Auto 0.5 % (0-2); Eosinophils Absolute Auto 0.2 X10*3/uL (0.0-0.4); Eosinophils Percent Auto 2.6 % (0-4); Hemoglobin 12.6 g/dl (12.0-16.0); Imm Gran Abs Auto 0.02 X10*3/uL (0.00-0.03); Imm Gran Pct Auto 0.2 % (0.0-0.4); Lymphocytes Absolute Auto 2.5 X10*3/uL (1.2-4.9); Lymphocytes Percent Auto 30.8 % (20-40); Mean Corpuscular HGB Conc 33.2 g/dl (31.0-35.0); Mean Corpuscular Hemoglobin 27.6 pg (27.0-33.0); Mean Corpuscular Volume 83.3 fL (80.0-98.0); Mean Platelet Volume 9.8 fL (9.4-12.3); Monocytes Absolute Auto 0.4 X10*3/uL (0.1-1.2); Monocytes Percent Auto 5.3 % (2-11); Neutrophils Percent Auto 60.6 % (45-73); Platelet Count 315 X10*3/uL (160-400); Red Blood Count 4.56 X10*6/uL (4.20-5.50); Red Cell Distribution Width 14.4 % (11.0-16.0); White Blood Count 8.2 X10*3/uL (4.8-10.8)
[2023-10-04 11:06] LABS: Appearance Urine Clear; Color Urine Yellow; Glucose Urine UA Negative (Negative); Leukocyte Esterase Urine Negative (Negative); Nitrite Urine Negative (Negative); Specific Gravity - Urine 1.015 (1.005-1.025); Urine Blood Negative (Negative); Urine Ketones Negative (Negative); Urine Protein Negative (Neg-Trace)
[2023-10-04 11:27] LABS: Estimated Average Glucose 160 mg/dL; Hemoglobin A1c % 7.2 % (<6.0)
[2023-10-04 12:12] LABS: Creatinine Urine 56.71 mg/dL; Microalbum/Creatinine Ratio Ur 12.3 ug/mg cr (<30)
[2023-10-04 12:13] LABS: Alanine Aminotransferase 19 U/L (0-31); Albumin Level 4.2 g/dL (3.5-5.0); Alkaline Phosphatase 57 U/L (39-117); Anion Gap 10 (12-20); Aspartate Amino Transferase 13 U/L (5-31); Bilirubin Total 0.5 mg/dL (0.0-1.0); Blood Urea Nitrogen 15 mg/dL (9-16); Calcium 9.9 mg/dL (8.4-10.2); Carbon Dioxide 25 mmol/L (22-29); Chloride 110 mmol/L (96-108); Cholesterol 160 mg/dL (<200); Estimated Glomerular Filt Rate > 60; Glucose Fasting 130 mg/dL (60-99); HDL Cholesterol 47 mg/dL (>40); LDL Cholesterol Calculated 92 mg/dL (<100); Potassium 3.8 mmol/L (3.3-5.1); Sodium 141 mmol/L (135-145); Total Protein 6.7 g/dL (6.5-8.0); Triglycerides 105 mg/dL (<150)
[2023-10-04 12:14] LABS: Free T4 (Free Thyroxine) 1.21 ng/dL (0.71-1.85); Thyroid Stimulating Hormone 1.48 uIU/mL (0.32-4.0); Vitamin D 25-OH Total 50.5 ng/mL (>30)
== END 2023-10-04 09:44 | disposition home or self-care (01) ==
LOC: HO.LAB 09:43
PROVIDERS: PCP Internal Medicine; Visit Provider Internal Medicine
DX: D64.9 Anemia, unspecified (principal); E78.00 Pure hypercholesterolemia, unspecified; E03.9 Hypothyroidism, unspecified; E11.9 Type 2 diabetes mellitus without complications; R30.0 Dysuria; E55.9 Vitamin D deficiency, unspecified
CPT/HCPCS: 36415; 80053; 80061; 81003; 82043; 82306; 82570; 83036; 84439; 84443; 85025

== ENCOUNTER 2023-10-08 10:03 | Outpatient (AMB) | payer MEDICARE, SELFPAY ==
[2023-10-08 10:05] VITALS: BP 130/60; PULSE 72; O2SAT 98; BMI 37.0
--- NOTE | 2023-10-08 10:05 | A.OFFVIS_ITS ---
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 Allergies codeine [CODEINE] Allergy (Unknown, Verified 10/08/23 10:31) NAUSEA & VOMITING morphine Allergy (Unknown, Verified 10/08/23 10:31) UNKNOWN oxycodone [OxyContin] Allergy (Unknown, Verified 10/08/23 10:31) UNKNOWN Medication List - Last Reconciled 10/08/23 by Giovanni Burnette MD acetaminophen (Tylenol Extra Strength) 1,000 mg PO QID PRN amlodipine 10 mg PO DAILY 90 days blood sugar diagnostic (FreeStyle Lite Strips) As directed once a day blood-glucose meter (FreeStyle Lite Meter kit) As directed budesonide 1 mg (2 mL) inhalation DAILY 30 days cholecalciferol (vitamin D3) 50 mcg PO DAILY 90 days clobetasol 0.05% 1 appl topical BID diphenhydramine HCl (Benadryl) 25 mg PO BEDTIME PRN dulaglutide 0.75 mg (0.5 mL) subcut QWEEK 4 weeks hydrocortisone 2.5% 1 appl topical BID lancets As directed latanoprost 0.005% 1 drp ophthalmic (eye) BEDTIME levothyroxine 112 mcg PO DAILY 90 days lisinopril 40 mg PO DAILY metformin ER 1,000 mg (2 x 500 mg) PO BID 90 days prednisone 5 mg PO DIRECTED prednisone 10 mg PO DIRECTED 10 days simvastatin 5 mg PO QPM umeclidinium 62.5 mcg/actuation (Incruse Ellipta) 1 inh inhalation DAILY vitamin B comp and C no.3 (B Complex Plus Vitamin C) 1 cap PO DAILY HPI SAWV HPI Details Patient comes in today for her Annual Medicare Wellness Exam AND follow up visit States that she has been experiencing recurrent left knee pain for the past 4 months - recalls that she fell on her knee about 4 months ago and that her knee has been bothering her since although the pain in her knee has subsided slightly over the past few months Also relates (+) recurrent pain over the back of her left hip lately - states that this tends to bother her more often after prolonged sitting States that she feels okay otherwise She denies any headaches or dizziness Denies any chest pains, no increased SOB No nausea/vomiting, no abdominal pain No change in bowel habits noted Needs her Metformin Rx refilled States that she also has not been taking her Trulicity for a while now as she has trouble getting it from her pharmacy due to unavailability of the Rx She had her follow up labs done a few days ago - to discuss her results She had her repeat colonoscopy done by Dr. Li in March 2023 and was advised that unless there is any active indication, she should no longer need any follow up screening colonoscopy She will be due for her annual mammogram next month She had her BMD last done in 2021 and no longer needs to continue with yearly gynecology exam and pap smear due to her age IPPE/AWV: c/o of Annual Wellness Visit, subsequent visit. Medical / Social History Reviewed Past Medical History Yes . [place] of Care / Care Team list updated Yes . Surgical/Hospitalization History Yes . Current Medications (including OTC and supplements) Yes . Family History Yes . Tobacco Control form Yes . AUDIT-C (Alcohol use) form Yes . Illicit drug use in Social History Yes . Current diagnosis of depression? No Appropriate PHQ2/PHQ9 completed Yes . Data entered by Youth Ministry Director and reviewed by provider Home Safety Throw rugs? No Grab bars? No Raised toilet seats? No Working smoke detectors? Yes Working carbon monoxide detectors? Yes Data entered by Youth Ministry Director and reviewed by provider Activities of Daily Living (ADLs) Difficulty bathing or showering? No Difficulty dressing? No Difficulty using the toilet? No Difficulty getting in and out of bed? No Difficulty walking? No Receives help from another person with any of the above tasks? No Instrumental Activities of Daily Living (IADLs) Uses the telephone without help Gets to places out of walking distance without help Goes shopping for groceries without help Prepares own meals without help Does own minor home maintenance without help Does own laundry without help Does own housework without help Manages own money without help Currently takes medications? Yes Takes medication without help End-of-Life Planning Discussed advance directive Yes Advance directive on file Discussed wishes expressed in advance directive agreed to following patient's wishes Fall Risk: Fall History Have you had any falls with injury in the past year? No . Have you had two or more falls in the past year? No . Fall Risk Assessment: No falls in the past year . HRA filled out by the patient, reviewed by Provider and scanned. [facility] Medical History Basal cell carcinoma of scalp Tick bite of back Post-surgical hypothyroidism Obesity (BMI 30-39.9) Dermatitis History of thyroid cancer History of endometrial cancer Vitamin D deficiency Osteopenia Obstructive sleep apnea COPD (chronic obstructive pulmonary disease) Pure hypercholesterolemia Benign essential hypertension Diabetes mellitus Chronic obstructive pulmonary disease, unspecified Other and unspecified hyperlipidemia Type 2 diabetes mellitus with unspecified complications Essential hypertension Precordial chest pain Surgical History Hx of tubal ligation History of colonoscopy History of thyroidectomy History of hysterectomy History of section Family History Father No problems noted. Mother No problems noted. Social History Housing: House Alcohol intake: current Alcohol intake frequency: holidays/special occasions only Patient Tobacco Use Status: Never used Tobacco e-Cigarette/Vaping Use: Never Used Second Hand Smoke Exposure: No service: No Current occupational status: retired Cognitive needs: No Hearing needs: No Vision needs: No Questionnaire Medicare Wellness Checkup [age] What gender do you identify with?: female During the past 4 weeks, how much have you been bothered by emotional problems such as feeling anxious, depressed, irritable, sad or downhearted, and blue?: slightly During the past 4 weeks, has your physical & emotional health limited your social activities with family, friends, neighbors, or groups?: not at all During the past 4 weeks, how much bodily pain have you generally had?: mild pain During the past 4 weeks, was someone available to help you if you needed & wanted help?: yes, as much as I wanted During the past 4 weeks, what was the hardest physical activity you could do for at least 2 minutes?: moderate Can you get to places out of walking distance without help? (For eg., can you travel alone on buses, taxis or drive your car?): Yes Can you go shopping for groceries or clothes without someone's help?: Yes Can you prepare your own meals?: Yes Can you do your housework without help?: Yes Because of any health problems, do you need the help of another person with your personal care needs such as eating, bathing, dressing or getting around the house?: No Can you handle your own money without help?: Yes During the past 4 weeks, how would you rate your health in general?: good During the past 4 weeks how have things been going for you?: pretty well Are you having difficulties driving your car?: no Do you always fasten your seat belt when you are in a car?: yes, usually During past 4 weeks, have you been bothered by the following: never: Falling or dizzy when standing up, Sexual problems?, Trouble eating well?, Teeth or denture problems? and Problems using the telephone? and sometimes: Tiredness or fatigue? Have you fallen 2 or more times in the past year?: Yes Are you afraid of falling?: Yes Are you a smoker?: no During the past 4 weeks, how many drinks of wine, beer, or other alcoholic beverages did you have?: 1 drink or less per week Do you exercise for about 20 minutes 3 or more times a week?: no, I usually do not exercise this much Have you been given information to help with the following?: yes: Hazards in your house that might hurt you? and no: Keeping track of your medications? How often do you have trouble taking medicines the way you have been told to take them?: I always take medicine as prescribed How confident are you that you can control & manage most of your health problems?: somewhat confident What is your race?: White Mini Mental State Exam (MMSE) Orientation What is the (year) (season) (date) (day) (month)?: year, season, date, day and month Where are we (state) (county) (town or city) (hospital) (floor)?: state, county, town or city, hospital/clinic and floor Score Score: 10 Activity of Daily Living Bathing - sponge bath, tub bath or shower: receives no assistance (gets in/out by self, if usual bathing means Dressing - getting clothes from closets & drawers, including inner/outer garments & fasteners.: gets clothes & gets completely dressed without help Toileting - going to the 'toilet room' for urine/bowel elimination & cleaning self/arranging clothes: goes to toilet room, cleans self, arranges clothes without help Transfer: moves in & out of bed and chair without help (may use support object) Continence: controls urination/bowel movements completely by self Feeding: feeds self without help Total Score: 0 Information obtained from: patient Using telephone: independent Traveling: independent Shopping: independent Preparing meals: independent Housework: independent Taking medicine: independent Managing money: independent PHQ-9 Over the last 2 weeks, how often have you been bothered by any of the following problems? 1. Little interest or pleasure in doing things: not at all 2. Feeling down, depressed, or hopeless: not at all 3. Trouble falling or staying asleep, or sleeping too much: several days 4. Feeling tired or having little energy: several days 5. Poor appetite or overeating: not at all 6. Feeling bad about yourself - or that you are a failure or have let yourself or your family down: not at all 7. Trouble concentrating on things, such as reading the newspaper or watching television: not at all 8. Moving or speaking so slowly that other people could have noticed. Or the opp osite - being so fidgety or restless that you have been moving around a lot more than usual: not at all 9. Thoughts that you would be better off or of hurting yourself in some way: not at all Total score: 2 Depression Screening Interpretation: Negative Depression Screening Done: Yes [id number] - PHQ-9 Billing: Yes Source: Developed by Drs. Everton Ghosh, Sumaya Becerra, Umang Ruano and colleagues, with an educational annette from [employer]. Review of Systems Const Denies chills, Denies fatigue, Denies fever(s) and Denies headache(s) ENT Denies dysphagia, Denies dizziness, Denies otalgia, Denies headache(s), Denies neck pain, Denies odynophagia and Denies sore throat Card Denies chest pain, Denies palpitations and Denies dyspnea Resp Denies chest congestion, Denies cough and Denies dyspnea GI Denies abdominal pain, Denies hematochezia, Reports constipation (at times), Den ies dysphagia, Denies heartburn, Denies diarrhea, Denies nausea, Denies odynophagia and Denies vomiting Denies difficulty voiding, Denies nocturia, Denies dysuria and Denies urinary urgency Musc Denies back pain, Reports arthralgias (over the left knee and the posterior aspect of the left hip), Denies joint swelling and Denies neck pain Skin/Breast Denies rash Neuro Denies dizziness and Denies headache(s) Psych Reports anxiety Endo Denies fatigue and Denies palpitations Physical Exam Vital Signs: Last Vital Signs Pulse 72 10/08/23 10:05 BP 130/60 10/08/23 10:05 Pulse Ox 98 10/08/23 10:05 Oxygen Delivery Method Room Air 10/08/23 10:05 BMI result Body Mass Index 37.0 IPPE/AWV: Balance Romberg Yes . Tandem walk NO . Walk and Turn Yes . Rise from sit to stand Yes . Vision Corrective lens No Vision screen pass Hearing Whisper test pass . Urinary incont. no. EKG Not clinically necessary. Const General: no acute distress and alert Orientation/consciousness: patient oriented x3 HEENT Ears: TM's normal bilaterally and EAC's normal Throat: Yes posterior oropharynx normal and Yes tonsils normal (no TP congestion noted) Neck Neck: Yes no lymphadenopathy and Yes supple Thyroid: Thyroid normal Resp Auscultation: clear to auscultation bilaterally, no rales and no wheezes Cardio Rate: regular rate Rhythm: regular rhythm Heart sounds: no murmurs GI Palpation (GI): Soft to palpation and nontender Auscultation: normal bowel sounds General: Yes no CVA tenderness Back/Spine/Pelvis Back: no CVA tenderness Thoracic/Lumbar Spine: No lumbar spinal tenderness Skin Lesions: no lesions Rashes: no rashes Neuro General: patient oriented x3 Extrem General: Yes no clubbing, cyanosis or edema Left lower extremity: hip/thigh Details: tenderness Location: of the hip Location: posteriorly and knee Details: tenderness Location: of the medial joint line and crepitus Location: at the knee; no swelling Results Reviewed Results Reviewed: Laboratory Tests 10/04/23 10/04/23 09:55 09:56 WBC 8.2 Hgb 12.6 Hct 38.0 Plt Count 315 Sodium 141 Potassium 3.8 Estimated GFR > 60 Fasting Glucose 130 H Hemoglobin A1c % 7.2 H Calcium 9.9 AST 13 ALT 19 Triglycerides 105 Cholesterol 160 LDL Cholesterol, Calc 92 HDL Cholesterol 47 25-OH Vitamin D Total 50.5 TSH 1.48 Free T4 1.21 Ur Specific [place] 1.015 Urine Protein Negative Urine Glucose (UA) Negative Urine Blood Negative Urine Nitrite Negative Ur Leukocyte Esterase Negative Microalb/Creat Ratio 12.3 Assessment & Plan Assessment & Plan (1) Medicare annual wellness visit, subsequent: Code(s): Z00.00 - Encounter for general adult medical examination without abnormal findin gs Plan: HRA form discussed and completed with patient; form will be scanned into patient's chart She had her repeat colonoscopy done in [address] Li and based on her results (normal) and age, she should not need any further screening colonoscopies unless there is an indication to do one urgently She will be due for her yearly mammogram next month BMD was last done in 2021; repeat BMD will be due next year She no longer needs to continue with yearly pap smear and gynecology exam based on her age (2) Benign essential hypertension: Code(s): I10 - Essential (primary) hypertension Plan: Reinforced low sodium diet Continue Lisinopril 40 mg QD and Amlodipine 10 mg QD (3) Diabetes mellitus: Code(s): E11.9 - Type 2 diabetes mellitus without complications Qualifiers: Diabetes mellitus type: type 2 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: without senior care use Diabetes mellitus complication status: without complication Qualified Code(s): E11.9 - Type 2 diabetes mellitus without complications Plan: Her HgbA1c has increased to 7.2% on her labs done a few days ago; was at 6.0% previously in June 2023 - goal is <7.0% Reinforced diabetic diet Continue Metformin ER 1000 mg BID (Rx refilled) She was also supposed to be on Trulicity 1.5 mg SQ once a week but has not been able to get this for a few weeks now due to its unavailability at the pharmacy Will try switching her over to Ozempic 1 mg SQ once a week - have advised her to STOP Trulicity for now and if she does well and permanently switches over to Ozeompic eventually, will D/C Trulicity then (4) Pure hypercholesterolemia: Code(s): E78.00 - Pure hypercholesterolemia, unspecified Plan: Results of her labs done a few days ago reviewed and discussed with patient Reinforced low cholesterol diet Continue Simvastatin 5 mg QD Will recheck her labs and fasting lipids in 4 months for follow up (5) Chronic obstructive pulmonary disease, unspecified: Code(s): J44.9 - Chronic obstructive pulmonary disease, unspecified Qualifiers: COPD type: unspecified COPD Qualified Code(s): J44.9 - Chronic obstructive pulmonary disease, unspecified Plan: Stable/controlled Continue Incruse Ellipta 62.5 mcg 1 inhalation QD and Albuterol HFA 2 inhalations Q 6 hours PRN (6) Obstructive sleep apnea: Comment: uses cpap Code(s): G47.33 - Obstructive sleep apnea (adult) (pediatric) Plan: Continue using her CPAP device when sleeping at night daily - is doing well on AutoPAP with pressure settings at 8 to 12 cm H2O Follow up with Sleep Medicine as scheduled (7) Osteopenia: Code(s): M85.80 - Other specified disorders of bone density and structure, unspecified site Qualifiers: Osteopenia location: multiple sites Qualified Code(s): M85.89 - Other specified disorders of bone density and structure, multiple sites Plan: Her initial BMD done in 2015 revealed (+) findings of osteopenia Patient was treated with oral bisphosphonates for over 5 years and Rx was eventually discontinued back in 2019 Repeat BMD done on 06/15/21 revealed findings that were mostly unchanged from p revious; will repeat BMD next year for follow up She is encouraged again to continue with regular exercise and physical activity to help maintain her bone density (8) Vitamin D deficiency: Code(s): E55.9 - Vitamin D deficiency, unspecified Plan: Continue Vitamin D3 2000 units QD (9) Post-surgical hypothyroidism: Code(s): E89.0 - Postprocedural hypothyroidism Plan: Continue Levothyroxine 112 mcg QD Her TFTs were normal on her recent labs done a few days ago Follow up with endocrinology as scheduled (10) History of thyroid cancer: Comment: (+) papillary thyroid cancer back in the 70s Code(s): Z85.850 - Personal history of malignant neoplasm of thyroid Plan: Follow up with endocrinology as scheduled for continuing surveillance (11) Left knee pain: Code(s): M25.562 - Pain in left knee Qualifiers: Chronicity: unspecified Qualified Code(s): M25.562 - Pain in left knee Plan: Patient states that her left knee has been bothering her since she fell on it about 4 months ago Will send her for left knee x-rays for further evaluation Will also go ahead and refer her to orthopedics for further evaluation and management (12) Left hip pain: Code(s): M25.552 - Pain in left hip Plan: Will send patient for left hip x-rays for further evaluation Will also have her see orthopedics for her left hip issues as well (13) Obesity (BMI 30-39.9): Code(s): E66.9 - Obesity, unspecified Plan: Reinforced diet/exercise as tolerated/lose weight Plan Follow up in 4 months Orders: Orders Vitamin D 25-OH Total 4 Months E55.9 - Vitamin D deficiency, unspecified XR knee LT 4V Today M25.562 - Pain in left knee, Z98.890 - Other specified postprocedural states XR hip LT min 2V Today M25.552 - Pain in left hip MM tomosynthesis screening BI 06/24 Z12.31 - Encounter for screening mammogram for malignant neoplasm of breast Complete Blood Count Auto Diff 4 Months D64.9 - Anemia, unspecified Comprehensive [place]. Panel Fast 4 Months E78.00 - Pure hypercholesterolemia, unspecified Lipid Panel 4 Months E78.00 - Pure hypercholesterolemia, unspecified Thyroid Stimulating Hormone 4 Months E03.9 - Hypothyroidism, unspecified Free T4 (Free Thyroxine) 4 Months E03.9 - Hypothyroidism, unspecified Microalbumin, Random (w Creat) 4 Months E11.9 - Type 2 diabetes mellitus without complications UA CC w/rflx Micro + Cult 4 Months R30.0 - Dysuria Referrals Orthopedics Referral M25.552 - Pain in left hip, M25.562 - Pain in left knee Medications: New semaglutide (Ozempic) 1 mg (0.75 mL) subcut QWEEK 4 weeks 3 mL 3RF Refilled metformin ER 1,000 mg (2 x 500 mg) PO BID 90 days 360 tabs 1RF E11.9 - Type 2 diabetes mellitus without complications Quality Reporting (2019) Depression/Bipolar (159/160/161/177) PHQ-9: Total score: 2 Coding Level of Care Code Medicare Subsequent (G0439) Est Pt Level 4 (82542) Diagnoses Medicare annual wellness visit, subsequent Z00.00 Benign essential hypertension I10 Type 2 diabetes mellitus without complication, without long-term current use of insulin E11.9 Diabetes mellitus type: type 2 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
== END 2023-10-08 11:01 | disposition home or self-care (01) ==
PROVIDERS: PCP Internal Medicine; Visit Provider Internal Medicine
DX: Z00.00 Encounter for general adult medical examination without abnormal findings (principal); I10 Essential (primary) hypertension; E11.9 Type 2 diabetes mellitus without complications; J44.9 Chronic obstructive pulmonary disease, unspecified; M85.89 Other specified disorders of bone density and structure, multiple sites; M25.562 Pain in left knee; E66.9 Obesity, unspecified; Z68.37 Body mass index [BMI] 37.0-37.9, adult
CPT/HCPCS: 99214; G0439

== ENCOUNTER 2023-10-08 11:12 | Outpatient (REF) | payer MEDICARE, SELFPAY ==
--- NOTE | ~2023-10-08 | XR_ITS ---
EXAMINATION: XR HIP, LEFT CLINICAL INFORMATION: Clinical pain in the left hip COMPARISON: None available. TECHNIQUE: Two views of the left hip. FINDINGS: No fracture. Alignment is anatomic. Hip joint space is maintained. Soft tissues are unremarkable. Incidental note made of degenerative changes of the symphysis pubis. XR/XR hip LT min 2V IMPRESSION: 1. Normal left hip. 2. Degenerative changes of the symphysis pubis. Electronically signed by: Armand Choi MD 11/04/2023 01:06 PM EDT RP
--- NOTE | ~2023-10-08 | XR_ITS ---
EXAMINATION: XR KNEE, LEFT CLINICAL INFORMATION: Patent left knee COMPARISON: X-rays of the left knee March 2010 (report only) TECHNIQUE: 4 views of the left knee FINDINGS: In the medial compartment and marginal osteophytes and joint space narrowing indicative of [id number] osteoarthritis. There are marginal osteophytes without joint space narrowing involving the lateral compartment and patella femoral compartment and mild osteoarthritis. No effusion. Surrounding bones and soft tissues normal. XR/XR knee LT 4V IMPRESSION: Tricompartmental osteoarthritis with degenerative changes most prominent in the medial compartment being [id number]. Electronically signed by: Armand Choi MD 11/04/2023 01:05 PM EDT
== END 2023-10-08 11:13 | disposition home or self-care (01) ==
LOC: HO.XRAY 11:12
PROVIDERS: PCP Internal Medicine; Visit Provider Internal Medicine
DX: M25.562 Pain in left knee (principal); M25.552 Pain in left hip; Z98.890 Other specified postprocedural states
CPT/HCPCS: 73502; 73564

== ENCOUNTER 2023-10-29 13:57 | Outpatient (AMB) | payer MEDICARE, SELFPAY ==
[2023-10-29 14:13] VITALS: BMI 36.8
--- NOTE | 2023-10-29 14:13 | MHC.OFFVIS ---
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 Patient reports she tripped over her vacuum cord in June and her left knee has been bothering since. She says the medical aspcet of her calf is very sore and she feels crunching in her left knee. She was wondering if she had a bone chip that could be pushing on a nerve in her knee. Left knee and Left hip XR done on 10/08/23. She does not trust herself to be steady due to instability she is feeling from her knee pain. She has pain that radiated from left knee to left hip and back. Denies numbness and tingling. 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 She states a few months ago she did trip over the vacuum and now has some stiffness in the knee. She has pain with stairs and feels most of her pain with sitting for long periods of time. She is diabetic and was on Trulicity, due to the shortage she was switched to Ozempic. [facility] Medical History Basal cell carcinoma of scalp Tick bite of back Post-surgical hypothyroidism Obesity (BMI 30-39.9) Dermatitis History of thyroid cancer History of endometrial cancer Vitamin D deficiency Osteopenia Obstructive sleep apnea COPD (chronic obstructive pulmonary disease) Pure hypercholesterolemia Benign essential hypertension Diabetes mellitus Chronic obstructive pulmonary disease, unspecified Other and unspecified hyperlipidemia Type 2 diabetes mellitus with unspecified complications Essential hypertension Precordial chest pain Surgical History Hx of tubal ligation History of colonoscopy History of thyroidectomy History of hysterectomy History of section Family History Father No problems noted. Mother No problems noted. Social History Housing: House Alcohol intake: current Alcohol intake frequency: holidays/special occasions only Patient Tobacco Use Status: Never used Tobacco e-Cigarette/Vaping Use: Never Used Second Hand Smoke Exposure: No service: No Current occupational status: retired Cognitive needs: No Hearing needs: No Vision needs: No Review of Systems Const All systems reviewed & are unremarkable except as noted in HPI and below Physical Exam Vital Signs: BMI result Body Mass Index 36.8 Const General: cooperative and no acute distress Orientation/consciousness: patient oriented x3 Resp Effort & Inspection: normal respiratory effort and able to speak in complete sentences Cardio Peripheral pulses: Peripheral pulses 2+ throughout Neuro General: patient oriented x3 Extrem Other: Left knee skin intact, no erythema or joint effusion. Tenderness along the medial joint line. ROM full with crepitus. Negative steinmans. No ligamentous laxity. NVI. Office Procedures Joint Injection/Aspiration Joint Injection/Aspiration Primary Site: left knee Prep: site was prepped using aseptic technique, ethochloride spray was applied and injection warnings given Injected: 40 mg of, DepoMedrol, with 8 mL of, 1% plain lidocaine and in the joint Approach Used: anterolateral Procedure: The patient tolerated the procedure well and there was some relief with the local anesthesia Coding 42511 - Glenohumeral/Tronchanteric Bursa/Intraarticular Procedure code (CPT) selection complete Results Reviewed Results Reviewed: xrays of the left knee show moderate oa left knee Assessment & Plan Assessment & Plan (1) Osteoarthritis of left knee: Code(s): M17.12 - Unilateral primary osteoarthritis, left knee Category: Medical Plan: We discussed options today, which include steroid injection. The patient did consent to move forward with the injection, which was tolerated well.? I recommended rest, ice and elevation and OTC antiinflammatories prn for discomfort. If symptoms persist over the next 6-8 weeks, they will contact our office, otherwise, prn We also discussed their diabetes and the effect the steroid can have on thier blood glucose levels; therefore, they will continue to monitor these very closely over the next 72 hours Orders: Orders PT Evaluation and Treatment Today M17.12 - Unilateral primary osteoarthritis, left knee Coding Level of Care Code New Pt Level 3 (44018) Diagnoses Osteoarthritis of left knee M17.12 CPT Codes Coding - Joint 7: 32761 - Glenohumeral/Tronchanteric Bursa/Intraarticular ([id number])
== END 2023-10-29 15:06 | disposition home or self-care (01) ==
PROVIDERS: PCP Internal Medicine; Visit Provider Physician Assistant
DX: M17.12 Unilateral primary osteoarthritis, left knee (principal)
CPT/HCPCS: 20610; 99203

== ENCOUNTER → 2023-10-29 13:57 | Outpatient (BNVA) | payer MEDICARE, SELFPAY | PROVIDERS: PCP Internal Medicine; Visit Provider Physician Assistant | DX: M17.12 Unilateral primary osteoarthritis, left knee (principal) | CPT/HCPCS: 20610; 99202; J1010 ==

== ENCOUNTER 2023-12-02 12:46 | Outpatient (REF) | payer MEDICARE, SELFPAY ==
--- NOTE | ~2023-12-02 | MM_ITS ---
EXAMINATION: MM SCREENING DIGITAL BREAST TOMOSYNTHESIS, BILATERAL CLINICAL INFORMATION: Screening. Asymptomatic. COMPARISON: Mammography: Comparison is made with available priors TECHNIQUE: Digital breast mammography with tomosynthesis is performed in both the craniocaudal and mediolateral oblique views along with computer-aided detection (CAD). FINDINGS: There are scattered areas of fibroglandular density (ACR BI-RADS breast composition Category b). There are no significant masses, abnormal calcifications, or other abnormalities. MM/MM tomosynthesis screening BI IMPRESSION: No mammographic evidence of malignancy. ASSESSMENT: BI-RADS BI-RADS 1 - Negative RECOMMENDATION: Routine annual mammography screening. 1 year F/U This examination should not preclude the clinical evaluation of a suspicious palpable abnormality. This patient's information was entered into a reminder system with a target due date for their next mammogram. Electronically signed by: Dedra Fairbanks DO 12/12/2023 06:36 PM EDT
== END 2023-12-02 12:47 | disposition home or self-care (01) ==
LOC: HO.MAMMO 12:46
PROVIDERS: PCP Internal Medicine; Visit Provider Internal Medicine
DX: Z12.31 Encounter for screening mammogram for malignant neoplasm of breast (principal)
CPT/HCPCS: 77063; 77067

== ENCOUNTER → 2023-12-02 12:48 | Outpatient (BNV) | payer MEDICARE, SELFPAY | PROVIDERS: PCP Internal Medicine; Visit Provider Internal Medicine | DX: Z12.31 Encounter for screening mammogram for malignant neoplasm of breast (principal) | CPT/HCPCS: 77063; 77067 ==

== ENCOUNTER 2024-01-20 10:54 | Outpatient (RCR) | payer MEDICARE, SELFPAY ==
--- NOTE | 2023-11-27 14:19 | MHC.PT.EP ---
[facility] [place] Office [place] Office [place] Office [address] Omar Zee [address] [phone] F: [phone] F: [phone] F: [phone] F: [phone] Physical Therapy Plan of Care Date of Evaluation: 11/27/23 Date of Surgery: N/A Diagnosis: L knee OA Assessment: Pt is a 73yo female presenting to PT with referring diagnosis of OA of L knee. The patient's primary complaint is feeling off balance and fear of falling. Her impairments include pain, postural/gait abnormalities, gross lower extremity weakness, deficits in knee and hip range of motion, and balance/proprioception deficits. Pt is a good candidate for PT due to the modifiable nature of her impairments and her motivation to improve. Pt would benefit from a progressive strengthening/stretching program, balance/proprioception training, fall recovery training, postural re-education, and modalities for pain management. Frequency and Duration: The patient will be seen 2x/wk for 6 weeks Short Term Goals: Pt will be independent with HEP for self management of condition Pt will increase L knee flx by 10deg to promote ease in stair climbing Senior Living Goals: Pt will record a statistically significant difference in LEFI to demonstrate improvement in functional activities Pt will ambulate 2600ft on even ground with <=2/10 pain and <=2/10 reports of feeling off balance for safe return to community ambulation Treatment Plan: Modalities to reduce pain, spasms and effusion. Manual therapy to restore motion and function. Therapeutic exercise to improve strength and flexibility. Neuromuscular re-education for posture and balance. Therapeutic activities to return to functional activities of daily living. Electronically signed by: Alexandrea Funes PT, DPT Please sign and return to therapist. Thank you for your referral.
--- NOTE | 2024-01-20 13:40 | MHC.PT.DC ---
[facility] [place] Office [place] Office [place] Office [address] Omar Zee [address] [phone] F: [phone] F: [phone] F: [phone] F: [phone] Physical Therapy Discharge Report Diagnosis: L knee OA Date of Surgery: N/A Date of Evaluation: 11/27/23 Date of Discharge: Treatments to Date: 13 Cancellations to Date: 0 No Shows to Date: 0 Discharge Status: Discharge Summary: The patient at this time has been reporting minimal to no knee or radicular pain. She is independent with her home exercise program. She has achieved all goals established at the initial evaluation. She is discharged from this physical therapy plan of care. Electronically signed by: Please sign and return to therapist. Thank you for your referral.
== END 2024-01-20 13:41 | disposition home or self-care (01) ==
LOC: HO.PT 10:54
PROVIDERS: PCP Internal Medicine; Visit Provider Physician Assistant
DX: M17.12 Unilateral primary osteoarthritis, left knee (principal)
CPT/HCPCS: 97110; 97112; 97161; 97530

== ENCOUNTER 2024-01-27 13:24 | Outpatient (AMB) | payer MEDICARE, SELFPAY ==
--- NOTE | 2024-01-27 13:30 | MHC.OFFVIS ---
Intake Visit Reasons: OV-LT knee pain/possible nerve pain Intake Note: Justina a 73 year old female who presents today for a follow up of left knee OA, last injection 10/29/23. Patient reports that her pain had gotten better about 3 weeks ago. She has been attending PT which has been helping. She expresses concerns of crunching in her knee. Allergies codeine [CODEINE] Allergy (Unknown, Verified 01/27/24 13:43) NAUSEA & VOMITING morphine Allergy (Unknown, Verified 01/27/24 13:43) UNKNOWN oxycodone [OxyContin] Allergy (Unknown, Verified 01/27/24 13:43) UNKNOWN Medication List - Last Reconciled 01/27/24 by Guera Cantu PA-C acetaminophen (Tylenol Extra Strength) 1,000 mg PO QID PRN amlodipine 10 mg PO DAILY 90 days blood sugar diagnostic (FreeStyle Lite Strips) As directed once a day blood-glucose meter (FreeStyle Lite Meter kit) As directed budesonide 1 mg (2 mL) inhalation DAILY 30 days cholecalciferol (vitamin D3) 50 mcg PO DAILY 90 days clobetasol 0.05% 1 appl topical BID diphenhydramine HCl (Benadryl) 25 mg PO BEDTIME PRN dulaglutide 0.75 mg (0.5 mL) subcut QWEEK 4 weeks hydrocortisone 2.5% 1 appl topical BID lancets As directed latanoprost 0.005% 1 drp ophthalmic (eye) BEDTIME levothyroxine 112 mcg PO DAILY 90 days lisinopril 40 mg PO DAILY metformin ER 1,000 mg (2 x 500 mg) PO BID 90 days prednisone 5 mg PO DIRECTED prednisone 10 mg PO DIRECTED 10 days semaglutide (Ozempic) 1 mg (0.75 mL) subcut QWEEK 4 weeks simvastatin 5 mg PO QPM umeclidinium 62.5 mcg/actuation (Incruse Ellipta) 1 inh inhalation DAILY vitamin B comp and C no.3 (B Complex Plus Vitamin C) 1 cap PO DAILY HPI HPI OV-LT knee pain/possible nerve pain: Details: 73-year-old female who returns to the office today for a follow-up of left knee pain. She reports her pain got better about 3 weeks ago. She currently states she has pain and intermittent tenderness to touch sensation in her knee that occasionally radiates down to her foot and up to her hip. She also hears loud crunching in her knee. She denies any pain at night. She had a cortisone injection on 10/29/23 that provided her relief. She has been working on physical therapy which has been helping. She takes ibuprofen for her pain with benefits. [facility], [facility] Medical History Basal cell carcinoma of scalp Tick bite of back Post-surgical hypothyroidism Obesity (BMI 30-39.9) Dermatitis History of thyroid cancer History of endometrial cancer Vitamin D deficiency Osteopenia Obstructive sleep apnea COPD (chronic obstructive pulmonary disease) Pure hypercholesterolemia Benign essential hypertension Diabetes mellitus Chronic obstructive pulmonary disease, unspecified Other and unspecified hyperlipidemia Type 2 diabetes mellitus with unspecified complications Essential hypertension Precordial chest pain Surgical History Hx of tubal ligation History of colonoscopy History of thyroidectomy History of hysterectomy History of section Family History Father No problems noted. Mother No problems noted. Social History Housing: House Alcohol intake: current Alcohol intake frequency: holidays/special occasions only Patient Tobacco Use Status: Never used Tobacco e-Cigarette/Vaping Use: Never Used Second Hand Smoke Exposure: No service: No Current occupational status: retired Cognitive needs: No Hearing needs: No Vision needs: No Review of Systems Const All systems reviewed & are unremarkable except as noted in HPI and below Physical Exam Const General: cooperative and no acute distress Orientation/consciousness: patient oriented x3 Resp Effort & Inspection: normal respiratory effort and able to speak in complete sentences Cardio Peripheral pulses: Peripheral pulses 2+ throughout Neuro General: patient oriented x3 Extrem Other: Left knee skin intact, no erythema or joint effusion. No specific Tenderness along the medial joint line. ROM full with crepitus. Negative steinmans. No ligamentous laxity. NVI. Assessment & Plan Assessment & Plan (1) Osteoarthritis of left knee: Code(s): M17.12 - Unilateral primary osteoarthritis, left knee Category: Medical Plan She will continue working with physical therapy as she has significant improvement. We also discussed the use of anti-inflammatories for occasional flareups. If symptoms persist or worsens, patient will contact the office to discuss possible steroid injection if she has pain, otherwise follow-up as needed. Patient Instructions: Scribed for Guera Cantu PA-C, by Robi Mccabe medical reception, on 01/27/2024 at 1:30 PM EST.? I, Guera Cantu PA-C, have personally reviewed and agree with the information entered by the scribe. Coding Level of Care Code Est Pt Level 3 (30072) Complex EM visit Add On G2211 Diagnoses Osteoarthritis of left knee M17.12
== END 2024-01-27 14:07 | disposition home or self-care (01) ==
PROVIDERS: PCP Internal Medicine; Visit Provider Physician Assistant
DX: M17.12 Unilateral primary osteoarthritis, left knee (principal)
CPT/HCPCS: 99213; G2211

== ENCOUNTER → 2024-01-27 13:24 | Outpatient (BNVA) | payer MEDICARE, SELFPAY | PROVIDERS: PCP Internal Medicine; Visit Provider Physician Assistant | DX: M17.12 Unilateral primary osteoarthritis, left knee (principal) | CPT/HCPCS: 99212 ==

== ENCOUNTER 2024-02-11 10:29 | Outpatient (REF) | payer MEDICARE, SELFPAY ==
[2024-02-11 11:54] LABS: MANUAL DIFF FLAG NO
[2024-02-11 12:00] LABS: Basophils Absolute Auto 0.1 X10*3/uL (0.0-0.2); Basophils Percent Auto 0.6 % (0-2); Eosinophils Absolute Auto 0.2 X10*3/uL (0.0-0.4); Eosinophils Percent Auto 1.8 % (0-4); Hematocrit 38.7 % (37.0-47.0); Hemoglobin 12.8 g/dl (12.0-16.0); Imm Gran Abs Auto 0.05 X10*3/uL (0.00-0.03); Imm Gran Pct Auto 0.5 % (0.0-0.4); Lymphocytes Absolute Auto 3.3 X10*3/uL (1.2-4.9); Lymphocytes Percent Auto 32.1 % (20-40); Mean Corpuscular HGB Conc 33.1 g/dl (31.0-35.0); Mean Corpuscular Hemoglobin 27.9 pg (27.0-33.0); Mean Corpuscular Volume 84.3 fL (80.0-98.0); Mean Platelet Volume 9.8 fL (9.4-12.3); Monocytes Absolute Auto 0.6 X10*3/uL (0.1-1.2); Monocytes Percent Auto 5.3 % (2-11); Neutrophils Absolute Auto 6.2 x10*3/uL (2.0-8.3); Neutrophils Percent Auto 59.7 % (45-73); Platelet Count 337 X10*3/uL (160-400); Red Blood Count 4.59 X10*6/uL (4.20-5.50); Red Cell Distribution Width 13.2 % (11.0-16.0); White Blood Count 10.4 X10*3/uL (4.8-10.8)
[2024-02-11 12:09] LABS: Appearance Urine Clear; Color Urine Yellow; Glucose Urine UA Negative (Negative); Leukocyte Esterase Urine Negative (Negative); Nitrite Urine Negative (Negative); PH 6.5 (5.0-9.0); Urine Blood Negative (Negative); Urine Ketones Negative (Negative); Urine Protein Negative (Neg-Trace)
[2024-02-11 12:21] LABS: Alanine Aminotransferase 21 U/L (0-31); Albumin Level 4.2 g/dL (3.5-5.0); Alkaline Phosphatase 59 U/L (39-117); Anion Gap 13 (12-20); Aspartate Amino Transferase 22 U/L (5-31); Bilirubin Total 0.4 mg/dL (0.0-1.0); Blood Urea Nitrogen 16 mg/dL (9-16); Calcium 9.1 mg/dL (8.4-10.2); Carbon Dioxide 25 mmol/L (22-29); Chloride 106 mmol/L (96-108); Cholesterol 140 mg/dL (<200); Estimated Glomerular Filt Rate > 60; Glucose Fasting 128 mg/dL (60-99); HDL Cholesterol 44 mg/dL (>40); LDL Cholesterol Calculated 83 mg/dL (<100); Potassium 4.3 mmol/L (3.3-5.1); Sodium 140 mmol/L (135-145); Total Protein 6.9 g/dL (6.5-8.0); Triglycerides 67 mg/dL (<150)
[2024-02-11 12:39] LABS: Free T4 (Free Thyroxine) 1.47 ng/dL (0.71-1.85); Thyroid Stimulating Hormone 0.63 uIU/mL (0.32-4.0); Vitamin D 25-OH Total 62.8 ng/mL (>30)
[2024-02-11 13:08] LABS: Creatinine Urine 72.62 mg/dL; Microalbum/Creatinine Ratio Ur 23.4 ug/mg cr (<30)
--- OUTSIDE RECORDS SUMMARY | 2024-02-12 19:52 | XMS_ITS ---
Author Organization [facility] Address [address] [place] [phone] Care Team Providers Care Transfer Station Operator Name Role Phone Vasile BEGUM, [place] Primary Care Provider Unava ilable Everton Li Unavailable [phone] REASON FOR VISIT Trulicity Encounters Encounter Location Date Provider Diagnosis [facility] [address] [place] [phone] 01/06/2023 Everton Li PLAN OF TREATMENT No Information
--- OUTSIDE RECORDS SUMMARY | 2024-02-12 19:52 | XMS_ITS | Patient Health Record ---
Author Organization [facility] Address [address] [place] [address] Care Team Providers Care Senior Ios Software Engineer Name Role Phone Lloyd Burnette MDneth Primary Care Provider Unava Everton Keyes Unavailable [phone] ALLERGIES Allergen (clinical drug ingredient) Drug/Non Drug Allergy documented on EMR Reaction Allergy Type Onset Date Status oxycodone OxyContin Unknown Drug Allergy Active meperidine Demerol nausea and vomiting Drug Allergy Active codeine Codeine Sulfate Unknown Drug Allergy A ctive RESULTS Component Value Reference Range Notes Glucose, Whole Blood Reviewed date:03/08/2023 04:52:44 PM Interpretation: Performing Lab:[facility], [address] [place] [phone] Notes/Report: Glucose, Whole Blood 128 60-115 mg/dL METER # : [id number] REASON FOR REFERRAL No Information MEDICATIONS Medication SIG (Take, Route, Frequency, Duration) Notes Start Date End Date Status Trulicity 1.5 MG/0.5ML Subcutaneous for 28 She t akes this on Sundays Active amLODIPine Besylate 10 MG 1 tablet Orally Once a day Active Levothyroxine Sodium 112 MCG Oral for 90 Active Vitamin D Active metFORMIN HCl ER 500 MG 2 tablet with evening meal orally twice a day Active Lisinopril 40 MG 1 tablet Orally Once a day Active Simvastatin 5 MG 1 tablet in the evening Orally Once a day Active Colace 100 MG 1 capsule as needed Orally Once a day for 30 day(s) Active Vitamin B Complex - as directed Orally Active IMMUNIZATIONS Vaccine Route Administration Date Status Comme nts Influenza Unknown 12/26/2015 Administered SOCIAL HISTORY Sex Assigned At : Social History Observation Description Sex Assigned At Unknown PROBLEMS Problem Type ICD Code Onset Dates Problem Status W/U Status Risk SNOMED Code Notes Problem Encounter for screening for malignant neoplasm of colon (Z12.11) Active confirmed 733252802 Problem Encounter for screening for malignant neoplasm of rectum (Z12.12) Active confirmed Screening for malignant neoplasm of rectum (806464246) Problem Preprocedural examination (Z01.818) Active confirmed 67142472 Problem Rectal bleeding (K62.5) Active confirmed 54133706 Problem Constipation, unspecified constipation type (K59.00) Active confirmed 15833805 Problem Diverticulosis of large intestine without perforation or abscess without bleeding (K57.30) Active confirmed Diverticul ar disease of colon (154303341) Encounters Encounter Location Date Provider Diagnosis [facility] Out[facility] [address] [place], [place] [phone] 03/08/2023 Everton Li Hematochezia K92.1 ; Diverticulosis of large intestine without perforation or abscess without bleeding K57.30 and Other hemorrhoids K64.8 [facility] [address] [place] [address] 02/27/2023 Everton Li ASSESSMENTS Encounter Date Diagnosis Assessment Notes Treatment Notes Treatment Clinical Notes 03/08/2023 Diverticulosis of large intestine without perforation or abscess without bleeding (ICD-10 - K57.30) 03/08/2023 Hematochezia (ICD-10 - K92.1) 03/08/2023 Other hemorrhoids (ICD-10 - K64.8) PLAN OF TREATMENT Future Test Test Name Order Date COLONOSCOPY 02/07/2016 COLONOSCOPY 12/06/2022 Insurance Providers Payer Name Payer Address Payer Phone Subscriber Number Group Number Insured Name Patient Relationship to Insured Coverage Start Date Coverage End Date MEDICARE OF [place] [address] [place] [address] [id number] JOAN HUGGINS Self - patient is the insured MED[employer] ATTN CLAIMS [address] [place] [address] [phone] [id number] JOAN HUGGINS Self - patient is the insured MEDICAL (GENERAL) HISTORY Medical History History ICD Code Colonoscopy 08-31-2005--hyper plastic polyps, diverticulosis, internal hemorrhoids Pilonidal cyst Denies SD,CVA,renal disease Hypertension Hyperlipidemia Hypothyroidism NIDDM COPD Osteopenia Vitamin D deficiency Obesity Thyroid cancer 1978-Papillary cancer Endometrial adenocarcinoma of uterus Sleep apnea--uses CPAP Surgical History Surgery Date(Month/Year) Subtotal thyroidectomy in 1978 for cance r Tubal ligation 1 [facility] 2013
--- OUTSIDE RECORDS SUMMARY | 2024-02-12 19:52 | XMS_ITS ---
Author Organization [facility] Address [address] [place] [phone] Care Team Providers Care Landfill Grader Name Role Phone Vasile BEGUM, [place] Primary Care Provider Unava ilable Everton Li Unavailable [phone] REASON FOR VISIT Trulicity instructions Encounters Encounter Location Date Provider Diagnosis [facility] [address] [place] [phone] 02/27/2023 Everton Li PLAN OF TREATMENT No Information
--- OUTSIDE RECORDS SUMMARY | 2024-02-12 19:52 | XMS_ITS ---
Author Organization [facility] Address [address] [place] [phone] Care Team Providers Care Ball Truing Machine Operator Name Role Phone Vasile BEGUM, [place] Primary Care Provider Unava ilable Everton Li Unavailable [phone] REASON FOR VISIT rectal bleeding,constipation PROBLEMS Problem Type ICD Code Onset Dates Problem Status W/U Status Risk SNOMED Code Notes Problem Diverticulosis of large intestine without perforation or abscess without bleeding (K57.30) Active confirmed Diverticul ar disease of colon (372759778) Encounters Encounter Location Date Provider Diagnosis [facility] [place] [address] [place] [phone] 03/08/2023 Everton Li Hematochezia K92.1 ; Diverticulosis of large intestine without perforation or abscess without bleeding K57.30 and Other hemorrhoids K64.8 ASSESSMENTS Encounter Date Diagnosis Assessment Notes Treatment Notes Treatment Clinical Notes 03/08/2023 Hematochezia (ICD-10 - K92.1) 03/08/2023 Diverticulosis of large intestine without perforation or abscess without bleeding (ICD-10 - K57.30) 03/08/2023 Other hemorrhoids (ICD-10 - K64.8) PLAN OF TREATMENT No Information
== END 2024-02-11 10:30 | disposition home or self-care (01) ==
LOC: HO.10HDL 10:29
PROVIDERS: Visit Provider Internal Medicine
DX: E55.9 Vitamin D deficiency, unspecified (principal); D64.9 Anemia, unspecified; E78.00 Pure hypercholesterolemia, unspecified; E03.9 Hypothyroidism, unspecified; E11.9 Type 2 diabetes mellitus without complications; R30.0 Dysuria
CPT/HCPCS: 36415; 80053; 80061; 81003; 82043; 82306; 82570; 84439; 84443; 85025

== ENCOUNTER 2024-02-14 09:55 | Outpatient (AMB) | payer MEDICARE, SELFPAY ==
--- OUTSIDE RECORDS SUMMARY | 2024-02-14 09:58 | XMS_ITS ---
Author Organization [facility] Address [address] [place] [address] Care Team Providers Care Impregnator Helper Name Role Phone Vasile BEGUM, [place] Primary Care Provider Unava ilable Everton Li Unavailable [phone] REASON FOR VISIT Trulicity Encounters Encounter Location Date Provider Diagnosis [facility] [address] [place] [phone] 01/06/2023 Everton Li PLAN OF TREATMENT No Information
--- OUTSIDE RECORDS SUMMARY | 2024-02-14 09:58 | XMS_ITS ---
Author Organization [facility] Address [address] [place] [phone] Care Team Providers Care Eligibility Clerk Name Role Phone Vasile BEGMU, [place] Primary Care Provider Unava ilable Everton Li Unavailable [phone] REASON FOR VISIT Trulicity instructions Encounters Encounter Location Date Provider Diagnosis [facility] [address] [place] [phone] 02/27/2023 Everton Li PLAN OF TREATMENT No Information
--- OUTSIDE RECORDS SUMMARY | 2024-02-14 09:58 | XMS_ITS ---
Author Organization [facility] Address [address] [place] [phone] Care Team Providers Care Inspector Balance Wheel Motion Name Role Phone Vasile BEGUM, [place] Primary Care Provider Unava ilable Everton Li Unavailable [phone] REASON FOR VISIT rectal bleeding,constipation PROBLEMS Problem Type ICD Code Onset Dates Problem Status W/U Status Risk SNOMED Code Notes Problem Diverticulosis of large intestine without perforation or abscess without bleeding (K57.30) Active confirmed Diverticul ar disease of colon (584955042) Encounters Encounter Location Date Provider Diagnosis [facility] [place] [address] [place] [phone] 03/08/2023 Everton Li Hematochezia K92.1 ; Diverticulosis [...]
--- OUTSIDE RECORDS SUMMARY | 2024-02-14 09:58 | XMS_ITS | Patient Health Record ---
Author Organization [facility] Address [address] [place] [id number] Care Team Providers Care Hide Buffer Name Role Phone Lloyd Burnette MDneth Primary Care Provider Unava Everton Keyes Unavailable [phone] ALLERGIES Allergen (clinical drug ingredient) Drug/Non Drug Allergy documented on EMR Reaction Allergy Type Onset Date Status oxycodone OxyContin Unknown Drug Allergy Active meperidine Demerol nausea and vomiting Drug Allergy Active codeine Codeine Sulfate Unknown Drug Allergy A ctive RESULTS Component Value Reference Range Notes Glucose, Whole Blood Reviewed date:03/08/2023 04:52:44 PM Interpretation: Performing Lab:[facility], [address] [place] [phone] Notes/Report: Glucose, Whole Blood 128 60-115 mg/dL METER # : [id number] REASON FOR REFERRAL No Information MEDICATIONS Medication [...] malignant neoplasm of colon (Z12.11) Active confirmed 307671655 Problem Encounter for screening for malignant neoplasm of rectum (Z12.12) Active confirmed Screening for malignant neoplasm of rectum (474750459) Problem Preprocedural examination (Z01.818) Active confirmed 68401163 Problem Rectal bleeding (K62.5) Active confirmed 33392041 Problem Constipation, unspecified constipation type (K59.00) Active confirmed 04458895 Problem Diverticulosis of large intestine without perforation or abscess without bleeding (K57.30) Active confirmed Diverticul ar disease of colon (800929225) Encounters Encounter Location Date Provider Diagnosis [facility] [place] [facility] [address] [place], [place] [id number] 03/08/2023 Everton Li Hematochezia K92.1 ; Diverticulosis of large intestine without perforation or abscess without bleeding K57.30 and Other hemorrhoids K64.8 [facility] [address] [place] [address] 02/27/2023 Everton Li ASSESSMENTS Encounter Date Diagnosis [...] Date MEDICARE OF [place] [address] [facility] [place] [address] [id number] JOAN HUGGINS Self - patient is the insured [employer] ATT[employer] CLAIMS [address] [place] [address] [id number] JOAN HUGGINS Self - patient is the insured MEDICAL (GENERAL) HISTORY Medical History History ICD Code Colonoscopy 08-31-2005--hyper plastic polyps, diverticulosis, internal hemorrhoids Pilonidal cyst Denies [place],CVA,renal disease Hypertension Hyperlipidemia Hypothyroidism NIDDM COPD Osteopenia Vitamin D deficiency Obesity Thyroid cancer 1978-Papillary cancer Endometrial adenocarcinoma of uterus Sleep apnea--uses CPAP Surgical History Surgery Date(Month/Year) Subtotal thyroidectomy in 1978 for cance r Tubal ligation 1 [facility] 2013
--- NOTE | 2024-02-14 10:01 | MHC.PC.OV ---
Vital Signs 02/14/24 10:02 Height 5 ft 1 in Weight 197 lb BMI 37.2 BP 120/82 Blood Pressure Location Lt brachial Position Sitting Pulse 75 Pulse Source Pulse Oximeter Pulse Oximetry (%) 97 Oxygen Delivery Method Room Air Intake Visit Reasons: DM, Hyperlipidermia, Hypothyroidism, COPD Telephone Cleaner Required: No Accompanied by: Self / Same As Patient Allergies codeine [CODEINE] Allergy (Unknown, Verified 02/14/24 10:16) NAUSEA & VOMITING morphine Allergy (Unknown, Verified 02/14/24 10:16) UNKNOWN oxycodone [OxyContin] Allergy (Unknown, Verified 02/14/24 10:16) UNKNOWN Medication List - Last Reconciled 02/14/24 by JARRETT Holt acetaminophen (Tylenol Extra Strength) 1,000 mg PO QID PRN amlodipine 10 mg PO DAILY 90 days blood sugar diagnostic (FreeStyle Lite Strips) As directed once a day blood-glucose meter (FreeStyle Lite Meter kit) As directed cholecalciferol (vitamin D3) 50 mcg PO DAILY 90 days clobetasol 0.05% 1 appl topical BID lancets As directed latanoprost 0.005% 1 drp ophthalmic (eye) BEDTIME levothyroxine 112 mcg PO DAILY 90 days lisinopril 40 mg PO DAILY metformin ER 1,000 mg (2 x 500 mg) PO BID 90 days semaglutide (Ozempic) 1 mg (0.75 mL) subcut QWEEK 4 weeks simvastatin 5 mg PO QPM umeclidinium 62.5 mcg/actuation (Incruse Ellipta) 1 inh inhalation DAILY vitamin B comp and C no.3 (B Complex Plus Vitamin C) 1 cap PO DAILY Tobacco use date assessed: 02/14/24 Fall risk assessment: 2 + Falls in past year Last assessed Fall Risk: 02/14/24 Dental Screening Dental Screen Date: 02/14/24 Did you have a dental visit in the last 12 months?: Yes Did you have a dental problem in the last 6 months where you did not have access to dental care?: No Was dental information given to patient?: Patient has dentist HPI DM, Hyperlipidermia, Hypothyroidism, COPD HPI Details The patient is a 73-year-old female that is following for type 2 diabetes, hyperlipidemia, hypothyroid thyroidism, hypertension, and COPD. The patient reported that she is feeling well today and does not have any concerns. However she was curious About what her A1c would be today. This is because she had to switch from Trulicity to Ozempic and she is wondering If the Ozempic is going to be as effective as the Trulicity. The patient reports that she only checks her blood sugar in the morning time. Her blood sugars in the morning have been slightly higher than what it was when she was on the Trulicity. She the patient denies any dizziness, Any shortness of breath, any chest pain, any heart palpitation, and any visual changes. 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 She reports that she is doing well on her Incruse Ellipta inhaler. She reports that she has not had to use our short-acting inhaler. However, she stated that every pulmonary function tests that she ever had demonstrated that her short-acting inhaler does not work for her any ways. She continues to use her CPAP at bedtime. The patient question if she should take the RSV vaccine. The patient was told that the RSV vaccine is highly recommended due to her chronic lung disease. The patient reported she is up-to-date on all her other vaccines. [facility] Medical History Basal cell carcinoma of scalp Tick bite of back Post-surgical hypothyroidism Obesity (BMI 30-39.9) Dermatitis History of thyroid cancer History of endometrial cancer Vitamin D deficiency Osteopenia Obstructive sleep apnea COPD (chronic obstructive pulmonary disease) Pure hypercholesterolemia Benign essential hypertension Diabetes mellitus Chronic obstructive pulmonary disease, unspecified Other and unspecified hyperlipidemia Type 2 diabetes mellitus with unspecified complications Essential hypertension Precordial chest pain Surgical History Hx of tubal ligation History of colonoscopy History of thyroidectomy History of hysterectomy History of section Family History Father No problems noted. Mother No problems noted. Social History Housing: House Alcohol intake: current Alcohol intake frequency: holidays/special occasions only Patient Tobacco Use Status: Never used Tobacco e-Cigarette/Vaping Use: Never Used Second Hand Smoke Exposure: No service: No Current occupational status: retired Cognitive needs: No Hearing needs: No Vision needs: No Questionnaire PHQ-9 Over the last 2 weeks, how often have you been bothered by any of the following problems? 1. Little interest or pleasure in doing things: not at all 2. Feeling down, depressed, or hopeless: not at all 3. Trouble falling or staying asleep, or sleeping too much: several days 4. Feeling tired or having little energy: several days 5. Poor appetite or overeating: not at all 6. Feeling bad about yourself - or that you are a failure or have let yourself or your family down: not at all 7. Trouble concentrating on things, such as reading the newspaper or watching television: not at all 8. Moving or speaking so slowly that other people could have noticed. Or the opposite - being so fidgety or restless that you have been moving around a lot more than usual: not at all 9. Thoughts that you would be better off or of hurting yourself in some way: not at all Total score: 2 Depression Screening Interpretation: Negative Depression Screening Done: Yes 01568 - PHQ-9 Billing: Yes Source: Developed by Drs. Everton Ghosh, Sumaya Becerra, Umang Ruano and colleagues, with an educational annette from [employer]. Thrive Questionnaire Date Thrive assessed: 02/14/24 I am a: Patient What is your living situation today?: I have a steady place to live Within the past 12 months, did the food you bought not last and you didn't have the money to get more?: Never true Within the past 12 months, did you worry whether your food would run out before you got money to buy more?: Never true Do you have trouble paying for medicines?: No Do you have trouble getting transportation to medical appointments?: No Do you have trouble paying your heating and electricity bill?: No Do you have trouble taking care of your child, family member or friend?: No Do you have trouble with day-to-day activities such as bathing, preparing meals, shopping, managing finances, etc.?: No Are you currently unemployed and looking for a job?: No Are you interested in more education?: No Please select the resources that you would like help with: None Currently or been in a relationship where the following occur: No concerns reported THRIVE Score: 0 AUDIT C Alcohol Use Questionnaire (AUDIT-C) 1. How often do you have a drink containing alcohol?: Never 3. How often do you have six or more drinks on one occasion?: Never Total Score: 0 Score Reviewed/Action Taken: Yes RAVINDER-7 AMB Questionnaire RAVINDER-7 Date RAVINDER - 7 assessed: 02/14/24 Feeling nervous, anxious, or on edge: 0 = Not at all Not being able to stop or control worryin = Not at all Worrying too much about different things: 0 = Not at all Trouble relaxin = Not at all Being so restless that it is hard to sit still: 0 = Not at all Becoming easily annoyed or irritable: 0 = Not at all Feeling afraid as if something awful might happen: 0 = Not at all Total RAVINDER-7 score (0-4 normal; 5-9 mild; 10-14 moderate; 15-21 severe): 0 Source: Developed by Drs. Everton Ghosh, Sumaya Becerra, Umang Ruano and colleagues, with an educational annette from [employer]. Review of Systems Const Details: Const Denies chills, Denies fatigue, Denies fever(s), Denies headache(s) and Denies weakness ENT Denies dizziness and Denies headache(s) Card Denies chest pain, Denies lightheadedness, Denies dyspnea and Denies other (Palpitations) Resp Denies cough, Denies dyspnea, Denies wheezing and Denies other ( shortness of breath) GI Denies abdominal pain, Denies melena, Denies hematochezia, Denies change in bowel habits, Denies dyspepsia and Denies nausea Denies hematuria and Denies dysuria Musc Denies abnormal gait, Denies myalgias, Denies arthralgias, Denies numbness and Denies tingling Skin/Breast Denies rash, Denies unusual bruising and Denies wounds Neuro Denies abnormal gait, Denies dizziness, Denies headache(s), Denies memory loss, Denies numbness, Denies Sensory deficit (Neuro), Denies tingling and Denies weakness Psych Denies anxiety, Denies depression, Denies memory loss Endo Denies cold intolerance, Denies fatigue, Denies heat intolerance, Denies polydipsia and Denies polyuria Aller/Immun Denies wheezing Physical exam (Primary Care) Vital Signs: Last Vital Signs Pulse 75 02/14/24 10:02 BP 120/82 02/14/24 10:02 Pulse Ox 97 02/14/24 10:02 Oxygen Delivery Method Room Air 02/14/24 10:02 BMI result Body Mass Index 37.2 Tobacco/Smoking Status: Tobacco use Status Tobacco use date assessed 02/14/24 02/14/24 10:08 Patient Tobacco Use Status Never used Tobacco 02/14/24 10:08 e-Cigarette/Vaping Use Never Used 02/14/24 10:08 PHQ-9: PHQ-9 Score PHQ-9: Total score 2 02/14/24 12:59 Depression Screening Interpretation: Negative Thrive Assessment: Date of Thrive Assessment Date Thrive assessed 02/14/24 02/14/24 10:08 Currently or been in a relationship where the following occur: No concerns reported Const Other: General: no acute distress and well developed Nutritional Appearance: well nourished Orientation/consciousness: patient oriented x3 HENMT Head: Yes normocephalic and Yes atraumatic Eyes General: appearance normal, both eyes and all related structures Pupils: Equal, round and reactive pupils present EOM: EOMs intact bilaterally Resp Effort & Inspection: normal respiratory effort Auscultation: clear to auscultation bilaterally Cardio Rate: regular rate Rhythm: regular rhythm Heart sounds: S1 normal heart sound present, S2 normal heart sound present, no gallops, no murmurs and no rubs GI Palpation (GI): No Abdominal aortic bruit present, Soft to palpation, nontender, No hepatosplenomegaly present and No Rebound tenderness present Auscultation: normal bowel sounds General: Yes no CVA tenderness Back/Spine/Pelvis Back: no CVA tenderness Cervical Spine: cervical ROM normal and No Cervical spine tenderness Thoracic/Lumbar Spine: thoraco-lumbar ROM normal, No pain with thoraco-lumbar ROM, No thoracic spinal tenderness and No lumbar spinal tenderness Mild soreness in left knee Extrem General: Yes normal to inspection, mild nonpitting edema and No calf tenderness Skin General: warm and dry. Normal skin color. Normal skin turgor Lesions: no lesions Rashes: no rashes Trauma: no lacerations or abrasions Wounds: no wounds Nails: normal Neuro General: patient oriented x3, gait normal and no focal neuro deficit Cranial nerves: Yes Equal, round and reactive pupils present Cognition (Neuro): normal cognition Gait exam (Neuro): Normal gait present Sensory Exam: No Sensory deficit (Neuro) Psych Appearance: grossly normal Affect: normal affect Attitude: cooperative Thought process: Normal thought process present Results AMB Hemoglobin A1c AMB Hemoglobin A1c 6.1 % Last Edit by BEENA Zhou on 02/14/24 10:16 Results Reviewed Results Reviewed: Laboratory Last Values Hgb A1c (Clinic) 6.1 % (4.0-6.0) H 02/14/24 10:15 Laboratory Tests 02/11/24 02/14/24 10:33 10:15 WBC 10.4 RBC 4.59 Hgb 12.8 Hct 38.7 Plt Count 337 Sodium 140 Potassium 4.3 Chloride 106 Carbon Dioxide 25 BUN 16 Creatinine 0.60 Estimated GFR > 60 Fasting Glucose 128 H Hgb A1c (Clinic) 6.1 H Calcium 9.1 D AST 22 ALT 21 Alkaline Phosphatase 59 Triglycerides 67 Cholesterol 140 LDL Cholesterol, Calc 83 HDL Cholesterol 44 25-OH Vitamin D Total 62.8 TSH 0.63 Free T4 1.47 Urine Microalbumin 17.0 Microalb/Creat Ratio 23.4 Coding Level of Care Code Est Pt Level 4 (38493) Diagnoses Post-surgical hypothyroidism E89.0 Chronic obstructive pulmonary disease, unspecified COPD type J44.9 COPD type: unspecified COPD Pure hypercholesterolemia E78.00 Benign essential hypertension I10 Type 2 diabetes mellitus without complication, without long-term current use of insulin E11.9 Diabetes mellitus complication status: without complication Diabetes mellitus intermodal customer service insulin use: without nursing home use Diabetes mellitus type: type 2 Obstructive sleep apnea G47.33 Osteopenia of multiple sites M85.89 Osteopenia location: multiple sites Vitamin D deficiency E55.9 History of thyroid cancer Z85.850 Obesity (BMI 30-39.9) E66.9 Additional Codes PHQ-9 - 93368 - PHQ-9 Billing: Yes ([id number]) Assessment & Plan Assessment & Plan (1) Post-surgical hypothyroidism: Code(s): E89.0 - Postprocedural hypothyroidism Category: Medical Plan: The patient's thyroid function test is within normal limits. She is currently on levothyroxine 112 mcg. We will continue on the same dose and repeat labs in 4 months. (2) COPD (chronic obstructive pulmonary disease): Comment: PFT done in December 2011 showed (+) moderately severe obstructive airway disorder with no reversibility seen with bronchodilator Tx Code(s): J44.9 - Chronic obstructive pulmonary disease, unspecified Category: Medical Qualifiers: COPD type: unspecified COPD Qualified Code(s): J44.9 - Chronic obstructive pulmonary disease, unspecified Plan: Patient reported that her breathing has been well controlled on her Incruse Ellipa inhaler. Reports that she has not had to use our her fast acting inhaler much lately Bilateral breath sounds were clear on exam, will continue with current treatment. Patient to follow up in 4 months or sooner for any concerns. (3) Pure hypercholesterolemia: Code(s): E78.00 - Pure hypercholesterolemia, unspecified Category: Medical Plan: Reviewed labs with patient, LDL was slightly above desired range. Reinforced dietary management and activity as tolerated. Continue Simvastatin 5 mg QD Will recheck labs in 4 months (4) Benign essential hypertension: Code(s): I10 - Essential (primary) hypertension Category: Medical Plan: The patient continues on amlodipine 10 mg and lisinopril 40 mg daily. The patient's blood pressure is well within normal range. Continue same treatment we will follow up in 4 months. (5) Diabetes mellitus: Code(s): E11.9 - Type 2 diabetes mellitus without complications Category: Medical Qualifiers: Diabetes mellitus complication status: without complication Diabetes mellitus nursing home insulin use: without intermodal customer service use Diabetes mellitus type: type 2 Qualified Code(s): E11.9 - Type 2 diabetes mellitus without complications Plan: The patient is currently on metformin and a 1000 mg b.i.d. and Ozempic at 1 mg weekly Her A1c decreased from 7.2 to 6.1, we will resume the same treatment. The patient was encouraged to start checking her blood sugar during the evening time as well. The s/sx of hypoglycemic and hyperglycemic were reinforced. We will recheck labs in 4 months, the patient was encouraged to follow up sooner for any concerns. (6) Obstructive sleep apnea: Comment: uses cpap Code(s): G47.33 - Obstructive sleep apnea (adult) (pediatric) Category: Medical Plan: Continue using her CPAP device when sleeping at night daily - is doing well on AutoPAP with pressure settings at 8 to 12 cm H2O Follow up with Sleep Medicine as scheduled (7) Osteopenia: Code(s): M85.80 - Other specified disorders of bone density and structure, unspecified site Category: Medical Qualifiers: Osteopenia location: multiple sites Qualified Code(s): M85.89 - Other specified disorders of bone density and structure, multiple sites Plan: Her initial BMD done in 2015 revealed (+) findings of osteopenia Patient was treated with oral bisphosphonates for over 5 years and Rx was eventually discontinued back in 2018 Repeat BMD done on 06/15/21 revealed findings that were mostly unchanged from previous; will repeat BMD next year (2024) for follow up She is encouraged again to continue with regular exercise and physical activity to help maintain her bone density (8) Vitamin D deficiency: Code(s): E55.9 - Vitamin D deficiency, unspecified Category: Medical Plan: Continue Vitamin D3 2000 units QD (9) History of thyroid cancer: Comment: (+) papillary thyroid cancer back in the 70s Code(s): Z85.850 - Personal history of malignant neoplasm of thyroid Category: Medical Plan: Follow up with endocrinology as scheduled for continuing surveillance (10) Obesity (BMI 30-39.9): Code(s): E66.9 - Obesity, unspecified Category: Medical Plan: Reinforced diet/exercise as tolerated/lose weight Plan Follow up in 4 months Orders: Orders AMB Hemoglobin A1c 02/14/24 Giovanni Burnette MD Z13.9 - Encounter for screening, unspecified UA CC w/rflx Micro + Cult 4 Months JARRETT Holt E11.9 - Type 2 diabetes mellitus without complications Thyroid Stimulating Hormone 4 Months JARRETT Holt E89.0 - Postprocedural hypothyroidism Free T4 (Free Thyroxine) 4 Months JARRETT Holt E89.0 - Postprocedural hypothyroidism Complete Blood Count Auto Diff 4 Months JARRETT Hlot E11.9 - Type 2 diabetes mellitus without complications, I10 - Essential (primary) hypertension, J44.9 - Chronic obstructive pulmonary disease, unspecified Hemoglobin A1c 4 Months JARRETT Holt E11.9 - Type 2 diabetes mellitus without complications Comprehensive [place]. Panel Fast 4 Months JARRETT Holt E11.8 - Type 2 diabetes mellitus with unspecified complications, E78.00 - Pure hypercholesterolemia, unspecified, G47.33 - Obstructive sleep apnea (adult) (pediatric), M85.89 - Other specified disorders of bone density and structure, multiple sites Microalbumin, Random (w Creat) 4 Months JARRETT Holt E11.9 - Type 2 diabetes mellitus without complications, I10 - Essential (primary) hypertension
[2024-02-14 10:02] VITALS: BP 120/82; PULSE 75; O2SAT 97; BMI 37.2
== END 2024-02-14 10:50 | disposition home or self-care (01) ==
PROVIDERS: PCP Internal Medicine; Visit Provider Internal Medicine
DX: J44.9 Chronic obstructive pulmonary disease, unspecified (principal); E11.9 Type 2 diabetes mellitus without complications; E89.0 Postprocedural hypothyroidism; E78.00 Pure hypercholesterolemia, unspecified; I10 Essential (primary) hypertension; G47.33 Obstructive sleep apnea (adult) (pediatric); M85.89 Other specified disorders of bone density and structure, multiple sites; E55.9 Vitamin D deficiency, unspecified; Z85.850 Personal history of malignant neoplasm of thyroid; E66.9 Obesity, unspecified

== ENCOUNTER → 2024-02-14 09:55 | Outpatient (BNVA) | payer MEDICARE, SELFPAY | PROVIDERS: PCP Internal Medicine; Visit Provider Internal Medicine | DX: E89.0 Postprocedural hypothyroidism (principal); J44.9 Chronic obstructive pulmonary disease, unspecified; E78.00 Pure hypercholesterolemia, unspecified; I10 Essential (primary) hypertension; E11.9 Type 2 diabetes mellitus without complications; G47.33 Obstructive sleep apnea (adult) (pediatric); M85.89 Other specified disorders of bone density and structure, multiple sites; E55.9 Vitamin D deficiency, unspecified; E66.9 Obesity, unspecified; Z85.850 Personal history of malignant neoplasm of thyroid | CPT/HCPCS: 83036; 96127; 99212 ==

== ENCOUNTER 2024-04-28 08:54 | Outpatient (AMB) | payer MEDICARE, SELFPAY ==
--- NOTE | 2024-04-28 09:04 | A.OFFVIS_ITS ---
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 States it is her left leg, mostly aching. Started about a year ago. 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 Complaints include pain/throbbing and swelling of lower extremities (particularly in the left ankle). It has been affecting their daily activities including walking and standing. It is noted more so in left leg. She states she had a injury in the left ankle approximately 15 years ago, potential sprain/strain, and states that she has been having more swelling and pain in that area. 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 She states the pain goes down the medial aspect of her knee down to the ankle. She is a diabetic, on oral medications. She has never smoked. Patient denies any previous venous surgery or injections. Patient denies any history of DVT/ PE. Patient denies any history of phlebitis. Trial of compression includes - elevation, with no changes. She has tried compression stockings in the past but not recently. They now present for vascular evaluation regarding their varicose veins. [facility] Medical History Basal cell carcinoma of scalp Tick bite of back Post-surgical hypothyroidism Obesity (BMI 30-39.9) Dermatitis History of thyroid cancer History of endometrial cancer Vitamin D deficiency Osteopenia Obstructive sleep apnea COPD (chronic obstructive pulmonary disease) Pure hypercholesterolemia Benign essential hypertension Diabetes mellitus Chronic obstructive pulmonary disease, unspecified Other and unspecified hyperlipidemia Type 2 diabetes mellitus with unspecified complications Essential hypertension Precordial chest pain Surgical History Hx of tubal ligation History of colonoscopy History of thyroidectomy History of hysterectomy History of section Family History Father No problems noted. Mother No problems noted. Social History Housing: House Alcohol intake: current Alcohol intake frequency: holidays/special occasions only Patient Tobacco Use Status: Never used Tobacco e-Cigarette/Vaping Use: Never Used Second Hand Smoke Exposure: No service: No Current occupational status: retired Cognitive needs: No Hearing needs: No Vision needs: No Review of Systems Const Reports as per HPI and Denies weakness ENT Reports Normal hearing present and Denies dizziness Card Reports as per HPI, Denies chest pain, Denies chest pain at rest, Denies chest pain with activity, Denies dyspnea and Denies dyspnea on exertion Resp Reports as per HPI, Denies cough, Denies dyspnea and Denies dyspnea on exertion GI Reports as per HPI, Denies abdominal pain, Denies nausea and Denies vomiting Musc Denies numbness Skin/Breast Reports as per HPI, Denies erythema and Denies wounds Neuro Reports Normal hearing present, Denies dizziness, Denies numbness, Denies Sensory deficit (Neuro) and Denies weakness Psych Reports no additional complaints Endo Reports no additional complaints Physical Exam Const General: healthy appearing and no acute distress Orientation/consciousness: patient oriented x3 HEENT Head: Yes normal to inspection Ears: hearing grossly normal bilaterally Mouth: Normal oral and palatal mucosa present Resp Effort & Inspection: normal respiratory effort and able to speak in complete sentences Auscultation: clear to auscultation bilaterally Cardio Jugular venous distension: no JVD Rate: regular rate Rhythm: regular rhythm Heart sounds: S1 normal heart sound present and S2 normal heart sound present Bruits: no abdominal aortic bruits, no carotid bruits, no femoral bruits and no renal bruits Peripheral pulses: Peripheral pulses 2+ throughout GI Inspection: Yes normal to inspection Palpation (GI): No Abdominal aortic bruit present Skin General skin exam: no rashes or lesions noted Wounds: no wounds Hair: normal Neuro General: patient oriented x3 Cranial nerves: Yes Normal hearing present Cognition (Neuro): normal cognition Gait exam (Neuro): Normal gait present Motor exam (neuro): 5/5 motor strength present throughout Sensory Exam: No Sensory deficit (Neuro) Extrem Other: Left lower extremity: trace peripheral edema noted, particularly at the ankle. No discoloration noted. Right lower extremity: SV/small varicosities noted on the medial aspect, just below the knee, not painful. CEAP: C - 3 E - primary A - superficial P - reflux General: Yes normal to inspection, Yes full ROM, Yes capillary refill normal and Yes normal gait Assessment & Plan Assessment & Plan (1) Varicose veins of both lower extremities with inflammation: Code(s): I83.11 - Varicose veins of right lower extremity with inflammation; I83.12 - Varicose veins of left lower extremity with inflammation Category: Medical Plan: Justina is presenting today as a self-referral for left lower extremity pain, worsening over many years. In short, the patient has evidence of venous insufficiency. I have discussed the pathophysiology with the patient. In addition I have provided informational material regarding venous disease to the patient. We have discussed conservative measures including compression, elevation, and exercise. The patient states she has difficulty finding compression stockings that fit; she states she has difficulty due to anatomy of her legs. I have taken the liberty of ordering venous insufficiency testing with the patient. They will follow up with me after testing. The patient had an opportunity to ask questions regarding the treatment plan. All questions were answered. Imaging studies, laboratory studies and physical exam results were discussed and reviewed in detail. No major barriers to understanding were identified. The patient expressed understanding and agreement with the above treatment plan. The patient is aware they should contact our office by phone for worsening of the current condition or the appearance of new symptoms. Thank you for allowing me to participate in the vascular care of this patient. If you have any questions or concerns regarding the treatment for the above condition please do not hesitate to contact me. The office telephone contact is [phone]. This note is constructed using voice recognition software. While every effort has been made to ensure accuracy, securities research analyst errors may have been included. Thank you for allowing me to participate in the care of your patient. Yours sincerely, MALATHI Tamez Orders: Orders US venous duplex LE BI 1 Week I83.11 - Varicose veins of right lower extremity with inflammation, I83.12 - Varicose veins of left lower extremity with inflammation Coding Level of Care Code New Pt Level 4 (65677) Diagnoses Varicose veins of both lower extremities with inflammation I83.11; I83.12
--- OUTSIDE RECORDS SUMMARY | 2024-04-28 09:34 | XMS_ITS ---
Author Organization [facility] Address [address] [place] [phone] Care Team Providers Care Financial Investment Manager Name Role Phone Vasile BEGUM, [place] Primary Care Provider Unava ilable Everton Li Unavailable [phone] REASON FOR VISIT rectal bleeding,constipation PROBLEMS Problem Type ICD Code Onset Dates Problem Status W/U Status Risk SNOMED Code Notes Problem Diverticulosis of large intestine without perforation or abscess without bleeding (K57.30) Active confirmed Diverticul ar disease of colon (886826690) Encounters Encounter Location Date Provider Diagnosis [facility] [place] Out[place] [address] [place] [phone] 03/08/2023 Everton Li Hematochezia K92.1 ; Diverticulosis [...]
--- OUTSIDE RECORDS SUMMARY | 2024-04-28 09:34 | XMS_ITS ---
Author Organization [facility] Address [address] [place] [phone] Care Team Providers Care Pigment And Lacquer Mixer Name Role Phone Vasile BEGUM, [place] Primary Care Provider Unava ilable Everton Li Unavailable [phone] REASON FOR VISIT Trulicity Encounters Encounter Location Date Provider Diagnosis [facility] [address] [place] [phone] 01/06/2023 Everton Li PLAN OF TREATMENT No Information
--- OUTSIDE RECORDS SUMMARY | 2024-04-28 09:34 | XMS_ITS | Patient Health Record ---
Author Organization [facility] Address [address] [place] [phone] Care Team Providers Care Automobile Accessories Salesperson Name Role Phone Lloyd Burnette MDneth Primary Care Provider Unava Everton Keyes Unavailable [phone] ALLERGIES Allergen (clinical drug ingredient) Drug/Non Drug Allergy documented on EMR Reaction Allergy Type Onset Date Status oxycodone OxyContin Unknown Drug Allergy Active meperidine Demerol nausea and vomiting Drug Allergy Active codeine Codeine Sulfate Unknown Drug Allergy A ctive REASON FOR REFERRAL No Information MEDICATIONS Medication [...] W/U Status Risk SNOMED Code Notes Problem Rectal bleeding (K62.5) Active confirmed 67540483 Problem Encounter for screening for malignant neoplasm of colon (Z12.11) Active confirmed 572854253 Problem Diverticulosis of large intestine without perforation or abscess without bleeding (K57.30) Active confirmed Diverticul ar disease of colon (251136923) Problem Encounter for screening for malignant neoplasm of rectum (Z12.12) Active confirmed Screening for malignant neoplasm of rectum (265418560) Problem Preprocedural examination (Z01.818) Active confirmed 49476332 Problem Constipation, unspecified constipation type (K59.00) Active confirmed 26991496 PLAN OF TREATMENT Future Test Test Name Order Date COLONOSCOPY 02/07/2016 COLONOSCOPY 12/06/2022 Insurance Providers Payer Name Payer Address Payer Phone Subscriber Number Group Number Insured Name Patient Relationship to Insured Coverage Start Date Coverage End Date [place]ARE [place] [address] [place] [address] [id number] JOAN WORLEY Self - patient is the insured MEDEX ATTN CLAIMS [address] [place] [address] [phone] [id number] JOAN WORLEY Self - patient is the insured MEDICAL (GENERAL) HISTORY Medical History History ICD Code Colonoscopy 08-31-2005--hyper plastic polyps, diverticulosis, internal hemorrhoids Pilonidal cyst Denies CT,CVA,renal disease Hypertension Hyperlipidemia Hypothyroidism NIDDM COPD Osteopenia Vitamin D deficiency Obesity 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
--- OUTSIDE RECORDS SUMMARY | 2024-04-28 09:34 | XMS_ITS ---
Author Organization [facility] Address [address] [place] [phone] Care Team Providers Care Mechanical Design Technician Name Role Phone Vasile BEGUM, [place] Primary Care Provider Unava ilable Everton Li Unavailable [phone] REASON FOR VISIT Trulicity instructions Encounters Encounter Location Date Provider Diagnosis [facility] [address] [place] [phone] 02/27/2023 Everton Li PLAN OF TREATMENT No Information
== END 2024-04-28 09:25 | disposition home or self-care (01) ==
PROVIDERS: PCP Internal Medicine; Visit Provider Physician Assistant Surgical
DX: I83.11 Varicose veins of right lower extremity with inflammation (principal); I83.12 Varicose veins of left lower extremity with inflammation
CPT/HCPCS: 99204

== ENCOUNTER → 2024-04-28 08:54 | Outpatient (BNVA) | payer MEDICARE, SELFPAY | PROVIDERS: PCP Internal Medicine; Visit Provider Physician Assistant Surgical | DX: I83.11 Varicose veins of right lower extremity with inflammation (principal); I83.12 Varicose veins of left lower extremity with inflammation; E11.9 Type 2 diabetes mellitus without complications; Z79.84 Long term (current) use of oral hypoglycemic drugs | CPT/HCPCS: 99202 ==

== ENCOUNTER 2024-05-20 08:17 | Outpatient (REF) | payer MEDICARE, SELFPAY ==
--- NOTE | ~2024-05-20 | US_ITS ---
EXAMINATION: US LOWER EXTREMITY VENOUS (REFLUX EXAM), BILATERAL CLINICAL INFORMATION: Varices. COMPARISON: None. TECHNIQUE: Color flow triplex imaging and compression Doppler was performed to evaluate both the deep and the superficial systems bilaterally. To evaluate the superficial system, the examination was performed in the upright position. Color-flow Doppler ultrasound and compression ultrasound were utilized. In addition, maneuvers were utilized to demonstrate reflux. FINDINGS: 1. DEEP VENOUS ULTRASOUND OF THE RIGHT LOWER EXTREMITY: Common Femoral Vein: Compressible, normal respiratory variation and augmented flow. Femoral Vein: Compressible, normal color flow and augmentation. Popliteal Vein: Compressible, normal augmentation. Deep Reflux: There is no evidence of reflux in the deep system in either the common femoral vein, superficial femoral or the popliteal vein. There is no evidence of a Muniz's cyst. 2. SUPERFICIAL ULTRASOUND WITH DOPPLER OF RIGHT LOWER EXTREMITY: GREAT SAPHENOUS VEIN: Saphenofemoral Junction: 0.6 cm; Reflux: 0 ms Proximal Thigh: 0.6 cm; Reflux: 0 ms Mid Thigh: 0.3 cm; Reflux: 0 ms Distal Thigh: 0.2 cm; Reflux: 0 ms At Knee: 0.2 cm; Reflux: 0 ms Proximal Calf: 0.2 cm; Reflux: 0 ms Mid Calf: 0.2 cm; Reflux: 0 ms Distal Calf: 0.2 cm; Reflux: 0 ms DUPLICATED MEDIAL GREAT SAPHENOUS VEIN: Diameter: None imaged Reflux: NA DUPLICATED LATERAL GREAT SAPHENOUS VEIN: Diameter: 0.3 cm Reflux: NA SMALL SAPHENOUS VEIN: Saphenopopliteal Junction: 0.1 cm; Reflux: 0 ms Proximal: 0.1 cm; Reflux: 0 ms Distal: 0.1 cm; Reflux: 0 ms VEIN OF GIACOMINI: Size: NA Reflux: NA PERFORATORS: Location: Proximal and mid calf. Size: 0.2 cm. Reflux: NA VARICOSITIES: Location: Proximal calf. Size: 0.4 cm. Reflux: NA 3. DEEP VENOUS ULTRASOUND OF THE LEFT LOWER EXTREMITY: Common Femoral Vein: Compressible, normal respiratory variation and augmented flow. Femoral Vein: Compressible, normal color flow and augmentation. Popliteal Vein: Compressible, normal augmentation. Deep Reflux: There is no evidence of reflux in the deep system in either the common femoral vein, superficial femoral or the popliteal vein. There is no evidence of a Muniz's cyst. 4. SUPERFICIAL ULTRASOUND WITH DOPPLER OF LEFT LOWER EXTREMITY: GREAT SAPHENOUS VEIN: Saphenofemoral Junction: 0.7 cm; Reflux: 0 ms Proximal Thigh: 0.4 cm; Reflux: 0 ms Mid Thigh: 0.2 cm; Reflux: 0 ms Distal Thigh: 0.2 cm; Reflux: 0 ms At Knee: 0.2 cm; Reflux: 0 ms Proximal Calf: 0.2 cm; Reflux: 0 ms Mid Calf: 0.2 cm; Reflux: 0 ms Distal Calf: 0.2 cm; Reflux: 0 ms DUPLICATED MEDIAL GREAT SAPHENOUS VEIN: Diameter: None imaged Reflux: NA DUPLICATED LATERAL GREAT SAPHENOUS VEIN: Diameter: None imaged. Reflux: NA SMALL SAPHENOUS VEIN: Saphenopopliteal Junction: 0.3 cm; Reflux: 0 ms Proximal: 0.2 cm; Reflux: 0 ms Distal: 0.2 cm; Reflux: 0 ms VEIN OF GIACOMINI: Size: NA Reflux: NA PERFORATORS: Location: Proximal calf. Size: 0.1 cm. Reflux: NA VARICOSITIES: Location: None Imaged Size: NA Reflux: NA US/US venous insuf bilat IMPRESSION: Right: No venous insufficiency. Perforators and varices in the proximal and mid calf without reflux. Left: No venous insufficiency. Perforators without reflux in the proximal calf. Electronically signed by: Brennan Louie MD 05/20/2024 11:10 AM EDT
--- OUTSIDE RECORDS SUMMARY | 2024-05-20 08:45 | XMS_ITS | Patient Health Record ---
Author Organization [facility] Address [address] [place] [phone] Care Team Providers Care Machinist Helper Name Role Phone Vasile BEGUM Giovanni Primary Care Provider UnaEverton Irizarry Unavailable [phone] Allergies Allergen (clinical drug ingredient) Drug/Non Drug Allergy documented on EMR Reaction Allergy Type Onset Date Status oxycodone OxyContin Unknown Drug Allergy Active meperidine Demerol nausea and vomiting Drug Allergy Active codeine Codeine Sulfate Unknown Drug Allergy A ctive Reason For Referral No Information Medications Medication SIG (Take, Route, Frequency, Duration) Notes [...] B Complex - as directed Orally Active Immunizations Vaccine Route Administration Date Status Comme nts Influenza Unknown 12/26/2015 Administered Problems Problem Type SNOMED Code ICD Code Onset Dates Problem Status W/U Status Risk Notes Problem 96958608 Rectal bleeding (K62.5) Active confirmed Problem 211274800 Encounter for screening for malignant neoplasm of colon (Z12.11) Active confirmed Problem Diverticular disease of colon (819549033) Diverticulosis of large intestine without perforation or abscess without bleeding (K57.30) Active confirmed Problem Screening for malignant neoplasm of rectum (933423259) Encounter for screening for malignant neoplasm of rectum (Z12.12) Active confirmed Problem 76566579 Preprocedural examination (Z01.818) Active confirmed Problem 06424470 Constipation, unspecified constipation type (K59.00) Active confirmed Plan Of Treatment Future Test Test Name Order Date COLONOSCOPY 02/07/2016 COLONOSCOPY 12/06/2022 Insurance Providers Payer Name Payer Address Payer Phone Subscriber Number Group Number Insured Name Patient Relationship to Insured Coverage Start Date Coverage End Date [place] [address] [place] [address] [id number] JOAN HUGGINS Self - patient is the insured MEDEX ATTN CLAIMS [address] [place] [address] [id number] JOAN HUGGINS Self - patient is the insured Medical (General) History Medical History History ICD Code Colonoscopy 08-31-2005--hyper plastic polyps, diverticulosis, internal hemorrhoids Pilonidal cyst Denies CA,CVA,renal disease Hypertension Hyperlipidemia Hypothyroidism NIDDM COPD Osteopenia Vitamin D deficiency Obesity Thyroid cancer 1978-Papillary cancer Endometrial adenocarcinoma of uterus Sleep apnea--uses CPAP Surgical History Surgery Date(Month/Year) Subtotal thyroidectomy in 1978 for cance r Tubal ligation 1 [facility] 2013
--- OUTSIDE RECORDS SUMMARY | 2024-05-20 08:45 | XMS_ITS ---
Author Organization [facility] Address [address] [place] [phone] Care Team Providers Care Frame Straightener Name Role Phone Vasile BEGUM, [place] Primary Care Provider Unava ilable Everton Li Unavailable [phone] REASON FOR VISIT rectal bleeding,constipation Problems Problem Type SNOMED Code ICD Code Onset Dates Problem Status W/U Status Risk Notes Problem Diverticular disease of colon (355028826) Diverticulosis of large intestine without perforation or abscess without bleeding (K57.30) Active confirmed Encounters Encounter Location Date Provider Diagnosis [facility] [place] [address] [place] [phone] 03/08/2023 Everton Li Hematochezia K92.1 ; Diverticulosis of large intestine without perforation or abscess without bleeding K57.30 and Other hemorrhoids K64.8 Assessments Encounter Date Diagnosis (ICD Code) Assessment Notes Treatment Notes Treatment Clinical Notes Section Notes 03/08/2023 Hematochezia (ICD-10 - K92.1) 03/08/2023 Diverticulosis of large intestine without perforation or abscess without bleeding (ICD-10 - K57.30) 03/08/2023 Other hemorrhoids (ICD-10 - K64.8) Plan Of Treatment No Information Progress Notes * JOAN HUGGINS MDOB:[birth year] (74 yo F)Acc No.[id number]:03/08/2023 COLON WITH MAC Patient:?JOAN HUGGINS Provider:?Everton Li MD :1950???Age:73 Y???Sex:Female D ate:03/08/2023 Address:[address] [place] [address] [id number] Pcp:Giovanni Burnette MD Subjective: * Chief Complaints: * ???1. Rectal bleeding,consti pation. * Medical History:? Objective: * Vitals:? Assessment: * Assessment: 1.?Hematochezia - K92.1 (Lora jeffrey)???2.?Diverticulosis of large intestine without perforation or abscess without bleeding - K57.30???3.?Other hemorrhoids - K64.8??? Plan: * Treatment: * Procedure Codes:?76864 DIAGN OSTIC COLONOSCOPY, 0529F INTRVL 3+YRS PTS CLNSCP DOCD, 0528F RCMND FLW-UP 10 YRS DOCD, Modifiers: 1P * * The named appointment provid er may or may not be the originator of this progress note, and it is not deemed complete until electronically signed by the appointment provider. Sign off status: Pending * Provider:?Everton Li MD Date:? 024 Generated for Ashley castro/Alejandra/eTransmitting on:?05/20/2024 08:45 AM EDT
--- OUTSIDE RECORDS SUMMARY | 2024-05-20 08:46 | XMS_ITS ---
Author Organization [facility] Address [address] [place] [phone] Care Team Providers Care Pharmacy Innovation Assistant Name Role Phone Vasile BEGUM, [place] Primary Care Provider Unava ilable Everton Li [phone] REASON FOR VISIT Trulicity Encounters Encounter Location Date Provider Diagnosis [facility] [address] [place] [phone] 01/06/2023 Everton Li Plan Of Treatment No Information Progress Notes * JOAN HUGGINS MDOB:[birth year] (72 yo F)Acc No.[id number]:01/06/2023 Patient:?JOAN HUGGINS :1950???Age:72 Y???Sex:Female Address:[address] [place] [id number] * true * Date:? Generated for Printi gloria/Alejandra/eTransmitting on:?05/20/2024 08:45 AM EDT
--- OUTSIDE RECORDS SUMMARY | 2024-05-20 08:46 | XMS_ITS ---
Author Organization [facility] Address [address] [place] [phone] Care Team Providers Care Finance Business Partner Name Role Phone Vasile BEGUM, [place] Primary Care Provider Unava ilable Everton Li [phone] REASON FOR VISIT Trulicity instructions Encounters Encounter Location Date Provider Diagnosis [facility] [address] [place] [phone] 02/27/2023 Everton Li Plan Of Treatment No Information Progress Notes * JOAN HUGGINS MDOB:[birth year] (73 yo F)Acc No.[id number]:02/27/2023 Patient:?JOAN HUGGINS :1950???Age:73 Y???Sex:Female Address:[address] [place] [id number] * true * Date:? Generated for Tgi gloria/Alejandra/eTransmitting on:?05/20/2024 08:46 AM EDT
== END 2024-05-20 08:18 | disposition home or self-care (01) ==
LOC: HO.US 08:17
PROVIDERS: PCP Internal Medicine; Visit Provider Physician Assistant Surgical
DX: I83.11 Varicose veins of right lower extremity with inflammation (principal); I83.12 Varicose veins of left lower extremity with inflammation
CPT/HCPCS: 93970

== ENCOUNTER → 2024-05-20 08:19 | Outpatient (BNV) | payer MEDICARE, SELFPAY | PROVIDERS: PCP Internal Medicine; Visit Provider Radiology Diagnostic Radiology | DX: I83.91 Asymptomatic varicose veins of right lower extremity (principal) | CPT/HCPCS: 93970 ==

== ENCOUNTER 2024-05-28 09:30 | Outpatient (AMB) | payer MEDICARE, SELFPAY ==
--- NOTE | 2024-05-28 09:57 | A.OFFVIS_ITS ---
Intake Visit Reasons: follow up [facility] 05/20/2024 Intake Note: Patient presents for [facility] follow up. Both legs are sore but the left is worse. Legs hurt at night. Accompanied by: Self / Same As Patient Allergies codeine [CODEINE] Allergy (Unknown, Verified 05/28/24 09:59) NAUSEA & VOMITING morphine Allergy (Unknown, Verified 05/28/24 09:59) UNKNOWN oxycodone [OxyContin] Allergy (Unknown, Verified 05/28/24 09:59) UNKNOWN HPI HPI follow up [facility] 05/20/2024: Details: Jusitna is presenting today as a follow up to [facility], performed on 05/20/24. She continues to endorse bilateral lower extremity swelling, worse on the left. She continues with physical activity, exercises, and elevation with little relief. She states she has difficulty in finding compression socks that fit, citing issues with anatomic difficulities. She has no new concerns today. [facility] Medical History Basal cell carcinoma of scalp Tick bite of back Post-surgical hypothyroidism Obesity (BMI 30-39.9) Dermatitis History of thyroid cancer History of endometrial cancer Vitamin D deficiency Osteopenia Obstructive sleep apnea COPD (chronic obstructive pulmonary disease) Pure hypercholesterolemia Benign essential hypertension Diabetes mellitus Chronic obstructive pulmonary disease, unspecified Other and unspecified hyperlipidemia Type 2 diabetes mellitus with unspecified complications Essential hypertension Precordial chest pain Surgical History Hx of tubal ligation History of colonoscopy History of thyroidectomy History of hysterectomy History of section Family History Father No problems noted. Mother No problems noted. Social History Housing: House Alcohol intake: current Alcohol intake frequency: holidays/special occasions only Patient Tobacco Use Status: Never used Tobacco e-Cigarette/Vaping Use: Never Used Second Hand Smoke Exposure: No service: No Current occupational status: retired Cognitive needs: No Hearing needs: No Vision needs: No Review of Systems Const Reports as per HPI and Denies weakness ENT Reports Normal hearing present and Denies dizziness Card Reports as per HPI, Denies chest pain, Denies chest pain at rest, Denies chest pain with activity, Denies dyspnea and Denies dyspnea on exertion Resp Reports as per HPI, Denies cough, Denies dyspnea and Denies dyspnea on exertion GI Reports as per HPI, Denies abdominal pain, Denies nausea and Denies vomiting Musc Denies numbness Skin/Breast Reports as per HPI, Denies erythema and Denies wounds Neuro Reports Normal hearing present, Denies dizziness, Denies numbness, Denies Sensory deficit (Neuro) and Denies weakness Psych Reports no additional complaints Endo Reports no additional complaints Physical Exam Const General: healthy appearing and no acute distress Orientation/consciousness: patient oriented x3 HEENT Head: Yes normal to inspection Ears: hearing grossly normal bilaterally Mouth: Normal oral and palatal mucosa present Resp Effort & Inspection: normal respiratory effort and able to speak in complete sentences Auscultation: clear to auscultation bilaterally Cardio Jugular venous distension: no JVD Rate: regular rate Rhythm: regular rhythm Heart sounds: S1 normal heart sound present and S2 normal heart sound present Bruits: no abdominal aortic bruits, no carotid bruits, no femoral bruits and no renal bruits Peripheral pulses: Peripheral pulses 2+ throughout GI Inspection: Yes normal to inspection Palpation (GI): No Abdominal aortic bruit present Skin General skin exam: no rashes or lesions noted Wounds: no wounds Hair: normal Neuro General: patient oriented x3 Cranial nerves: Yes Normal hearing present Cognition (Neuro): normal cognition Gait exam (Neuro): Normal gait present Motor exam (neuro): 5/5 motor strength present throughout Sensory Exam: No Sensory deficit (Neuro) Extrem Other: Left lower extremity: +1/2 nonpitting edema noted, particularly at the ankle. No discoloration noted. Right lower extremity: SV/small varicosities noted on the medial aspect, just below the knee, not painful. General: Yes normal to inspection, Yes full ROM, Yes capillary refill normal and Yes normal gait Results Reviewed Results Reviewed: Brief summary of venous insufficiency testing is as follows: right great saphenous vein: negative right small saphenous vein: negative right accessory vein: none present left great saphenous vein: negative left small saphenous vein: negative left accessory vein: none present Please note there is no evidence of any venous aneurysms or significant tortuosity Assessment & Plan Assessment & Plan (1) Lymphedema: Code(s): I89.0 - Lymphedema, not elsewhere classified Category: Medical Plan: Justina is presenting today for a follow up to US, performed on 05/14/24. There was no insufficiency found on US. She does continue with bilateral lower extremity swelling, L>R. She continues with physical activity and elevation with little relief. Likely she has an element of lymphedema. We had a lengthy discussion about the pathophysiology of lymphedema. We discussed the importance of continuing with elevation and physical activity and trying to find compression stockings that will fit. She states she would like to talk with a friend who has some experience with lymphedema, prior to committing to the lymphedema clinic. I discussed with her that we believe she may have success and relief with lymphedema compression pumps, but it is up to her. We discussed to have her call us back at her soonest convenience to get in the clinic, if this is what she would like to do. We will have her follow up as needed. Thank you for allowing us to participate in the patient's care. If there are any questions or concerns, please do not hesitate to reach out to us. Coding Level of Care Code Est Pt Level 4 (48489) Diagnoses Lymphedema I89.0 Comment Review of venous insufficiency US
--- OUTSIDE RECORDS SUMMARY | 2024-05-28 11:24 | XMS_ITS | Patient Health Record ---
Author Organization [facility] Address [address] [place] [phone] Care Team Providers Care Physical Therapist Name Role Phone Vasile BEGUM Giovanni Primary Care Provider UnaEverton Irizarry Unavailable [phone] Allergies Allergen (clinical drug ingredient) Drug/Non Drug [...] Problem Status W/U Status Risk Notes Problem 85502087 Rectal bleeding (K62.5) Active confirmed Problem 697761581 Encounter for screening for malignant neoplasm of colon (Z12.11) Active confirmed Problem Diverticular disease of colon (734644849) Diverticulosis of large intestine without perforation or abscess without bleeding (K57.30) Active confirmed Problem Screening for malignant neoplasm of rectum (563722940) Encounter for screening for malignant neoplasm of rectum (Z12.12) Active confirmed Problem 23246524 Preprocedural examination (Z01.818) Active confirmed Problem 29232020 Constipation, unspecified constipation type (K59.00) Active confirmed Plan Of Treatment Future Test Test Name Order Date COLONOSCOPY 02/07/2016 COLONOSCOPY 12/06/2022 Insurance Providers Payer Name Payer Address Payer Phone Subscriber Number Group Number Insured Name Patient Relationship to Insured Coverage Start Date Coverage End Date [place]ARE [place] [address] [place] [address] [id number] JOAN HUGGINS Self - patient is the insured MED[employer] ATTN CLAIMS [address] [place] [address] [id number] JOAN HUGGINS Self - patient is the insured Medical (General) History Medical History History ICD Code Colonoscopy 08-31-2005--hyper plastic polyps, diverticulosis, internal hemorrhoids Pilonidal cyst Denies [place],CVA,renal disease Hypertension Hyperlipidemia Hypothyroidism NIDDM COPD Osteopenia Vitamin D deficiency Obesity Thyroid cancer 1978-Papillary cancer Endometrial adenocarcinoma of uterus Sleep apnea--uses CPAP Surgical History Surgery Date(Month/Year) Subtotal thyroidectomy in 1978 for cance r Tubal ligation 1 [facility] 2013
--- OUTSIDE RECORDS SUMMARY | 2024-05-28 11:24 | XMS_ITS ---
Author Organization [facility] Address [address] [place] [phone] Care Team Providers Care Interior Design Principal Name Role Phone Vasile BEGUM, [place] Primary Care Provider Unava ilable Everton Li [phone] REASON FOR VISIT Trulicity Encounters Encounter Location Date Provider Diagnosis [facility] [address] [place] [phone] 01/06/2023 Everton Li Plan Of Treatment No Information Progress Notes * JOAN HUGGINS MDOB:[birth year] (72 yo F)Acc No.[id number]:01/06/2023 Patient:?JOAN HUGGINS :1950???Age:72 Y???Sex:Female Address:[address] [place] [address] * true * Date:? Generated for Printi gloria/Alejandra/eTransmitting on:?05/28/2024 11:23 AM EDT
--- OUTSIDE RECORDS SUMMARY | 2024-05-28 11:24 | XMS_ITS ---
Author Organization [facility] Address [address] [place] [phone] Care Team Providers Care Respooler Name Role Phone Vasile BEGUM, [place] Primary Care Provider Unava ilable Everton Li [phone] REASON FOR VISIT Trulicity instructions Encounters Encounter Location Date Provider Diagnosis [facility] [address] [place] [phone] 02/27/2023 Everton Li Plan Of Treatment No Information Progress Notes * JOAN HUGGINS MDOB:[birth year] (73 yo F)Acc No.[id number]:02/27/2023 Patient:?JOAN HUGGINS :1950???Age:73 Y???Sex:Female Address:[address] [place] [address] * true * Date:? Generated for Tgi gloria/Alejandra/eTransmitting on:?05/28/2024 11:23 AM EDT
--- OUTSIDE RECORDS SUMMARY | 2024-05-28 11:24 | XMS_ITS ---
Author Organization [facility] Address [address] [place] [phone] Care Team Providers Care Cleaning Laborer Name Role Phone Vasile BEGUM, [place] Primary Care Provider Unava ilable Everton Li Unavailable [phone] REASON FOR VISIT rectal bleeding,constipation Problems Problem Type SNOMED Code ICD Code Onset Dates Problem Status W/U Status Risk Notes Problem Diverticular disease of colon (639192835) Diverticulosis of large intestine without perforation or abscess without bleeding (K57.30) Active confirmed Encounters Encounter Location Date Provider Diagnosis [facility] Out[place] [address] [place] [phone] 03/08/2023 Everton Li Hematochezia K92.1 ; Diverticulosis [...] JOAN HUGGINS MDOB:[birth year] (74 yo F)Acc No.[id number]:03/08/2023 COLON WITH MAC Patient:?JOAN HUGGINS Provider:?Everton Li MD :1950???Age:73 Y???Sex:Female D ate:03/08/2023 Address:[address] [place] [address] [id number] Pcp:Giovanni Burnette MD Subjective: * Chief Complaints: * ???1. Rectal bleeding,consti pation. * Medical History:? Objective: * Vitals:? Assessment: * Assessment: 1.?Hematochezia - K92.1 (Lora jeffrey)???2.?Diverticulosis of large intestine without perforation or abscess without bleeding - K57.30???3.?Other hemorrhoids - K64.8??? Plan: * Treatment: * Procedure Codes:?94070 DIAGN OSTIC COLONOSCOPY, 0529F INTRVL 3+YRS PTS CLNSCP DOCD, 0528F RCMND FLW-UP 10 YRS DOCD, Modifiers: 1P * * The named appointment provid er may or may not be the originator of this progress note, and it is not deemed complete until electronically signed by the appointment provider. Sign off status: Pending * Provider:?Everton Li MD Date:? 024 Generated for Ashley castro/Alejandra/eTransmitting on:?05/28/2024 11:23 AM EDT
== END 2024-05-28 10:21 | disposition home or self-care (01) ==
LOC: HO.HVS 09:31
PROVIDERS: PCP Internal Medicine; Visit Provider Physician Assistant Surgical
DX: I89.0 Lymphedema, not elsewhere classified (principal)
CPT/HCPCS: 99214

== ENCOUNTER → 2024-05-28 09:30 | Outpatient (BNVA) | payer MEDICARE, SELFPAY | PROVIDERS: PCP Internal Medicine; Visit Provider Physician Assistant Surgical | DX: I89.0 Lymphedema, not elsewhere classified (principal) | CPT/HCPCS: 99212 ==

== ENCOUNTER 2024-06-12 09:29 | Outpatient (REF) | payer MEDICARE, SELFPAY ==
--- OUTSIDE RECORDS SUMMARY | 2024-06-12 09:55 | XMS_ITS | Patient Health Record ---
Author Organization [facility] Address [address] [place] [phone] Care Team Providers Care Transport Specialist Name Role Phone Vasile BEGUM Giovanni Primary Care Provider UnaEverton Irizarry Unavailable [phone] Allergies Allergen (clinical drug ingredient) Drug/Non Drug [...] Problem Status W/U Status Risk Notes Problem 42486972 Rectal bleeding (K62.5) Active confirmed Problem 423473707 Encounter for screening for malignant neoplasm of colon (Z12.11) Active confirmed Problem Diverticular disease of colon (240598500) Diverticulosis of large intestine without perforation or abscess without bleeding (K57.30) Active confirmed Problem Screening for malignant neoplasm of rectum (478842018) Encounter for screening for malignant neoplasm of rectum (Z12.12) Active confirmed Problem 39164064 Preprocedural examination (Z01.818) Active confirmed Problem 28119694 Constipation, unspecified constipation type (K59.00) Active confirmed Plan Of Treatment Future Test Test Name Order Date COLONOSCOPY 02/07/2016 COLONOSCOPY 12/06/2022 Insurance Providers Payer Name Payer Address Payer Phone Subscriber Number Group Number Insured Name Patient Relationship to Insured Coverage Start Date Coverage End Date [place] [address] [place] [address] [id number] JOAN HUGGINS Self - patient is the insured MEDEX ATTN CLAIMS [address] [place] [address] [id number] JOAN HUGGINS Self - patient is the insured Medical (General) History Medical History History ICD Code Colonoscopy 08-31-2005--hyper plastic polyps, diverticulosis, internal hemorrhoids Pilonidal cyst Denies [place],CVA,renal disease Hypertension Hyperlipidemia Hypothyroidism NIDDM COPD Osteopenia Vitamin D deficiency Obesity Thyroid cancer 1978-Papillary cancer Endometrial adenocarcinoma of uterus Sleep apnea--uses CPAP Surgical History Surgery Date(Month/Year) Subtotal thyroidectomy in 1978 for cance r Tubal ligation [address] [facility] 2013
--- OUTSIDE RECORDS SUMMARY | 2024-06-12 09:55 | XMS_ITS ---
Author Organization [facility] Address [address] [place] [phone] Care Team Providers Care Director Executive Communications Name Role Phone Vasile BEGUM, [place] Primary Care Provider Unava ilable Everton Li Unavailable [phone] REASON FOR VISIT rectal bleeding,constipation Problems Problem Type SNOMED Code ICD Code Onset Dates Problem Status W/U Status Risk Notes Problem Diverticular disease of colon (059380579) Diverticulosis of large intestine without perforation or abscess without bleeding (K57.30) Active confirmed Encounters Encounter Location Date Provider Diagnosis [facility] Outpatient [address] [place] [phone] 03/08/2023 Everton Li Hematochezia K92.1 ; Diverticulosis [...] JOAN HUGGINS MDOB:[birth year] (74 yo F)Acc No.[id number]:03/08/2023 COLON WITH MAC Patient:?JOAN HUGGINS Provider:?Everton Li MD :1950???Age:73 Y???Sex:Female D ate:03/08/2023 Address:[address] [place] [address] [id number] Pcp:Giovanni Burnette MD Subjective: * Chief Complaints: * ???1. Rectal bleeding,consti pation. * Medical History:? Objective: * Vitals:? Assessment: * Assessment: 1.?Hematochezia - K92.1 (Lora jeffrey)???2.?Diverticulosis of large intestine without perforation or abscess without bleeding - K57.30???3.?Other hemorrhoids - K64.8??? Plan: * Treatment: * Procedure Codes:?85727 DIAGN OSTIC COLONOSCOPY, 0529F INTRVL 3+YRS PTS CLNSCP DOCD, 0528F RCMND FLW-UP 10 YRS DOCD, Modifiers: 1P * * The named appointment provid er may or may not be the originator of this progress note, and it is not deemed complete until electronically signed by the appointment provider. Sign off status: Pending * Provider:?Everton Li MD Date:? 024 Generated for Ashley castro/Alejandra/eTransmitting on:?06/12/2024 09:55 AM EDT
--- OUTSIDE RECORDS SUMMARY | 2024-06-12 09:56 | XMS_ITS ---
Author Organization [facility] Address [address] [place] [phone] Care Team Providers Care Boiler Setter Name Role Phone Vasile BEGUM, [place] Primary Care Provider Unava ilable Everton Li [phone] REASON FOR VISIT Trulicity Encounters Encounter Location Date Provider Diagnosis [facility] [address] [place] [phone] 01/06/2023 Everton Li Plan Of Treatment No Information Progress Notes * JOAN HUGGINS MDOB:[birth year] (72 yo F)Acc No.[id number]:01/06/2023 Patient:?JOAN HUGGINS :1950???Age:72 Y???Sex:Female Address:[address] [place] [address] * true * Date:? Generated for Printi gloria/Alejandra/eTransmitting on:?06/12/2024 09:55 AM EDT
--- OUTSIDE RECORDS SUMMARY | 2024-06-12 09:56 | XMS_ITS ---
Author Organization [facility] Address [address] [place] [phone] Care Team Providers Care Receiving Clerk Name Role Phone Vasile BEGUM, [place] Primary Care Provider Unava ilable Everton Li [phone] REASON FOR VISIT Trulicity instructions Encounters Encounter Location Date Provider Diagnosis [facility] [address] [place] [phone] 02/27/2023 Everton Li Plan Of Treatment No Information Progress Notes * JOAN HUGGINS MDOB:[birth year] (73 yo F)Acc No.[id number]:02/27/2023 Patient:?JOAN HUGGINS :1950???Age:73 Y???Sex:Female Address:[address] [place] [address] * true * Date:? Generated for Tgi gloria/Alejandra/eTransmitting on:?06/12/2024 09:55 AM EDT
[2024-06-12 10:59] LABS: MANUAL DIFF FLAG NO
[2024-06-12 11:10] LABS: Appearance Urine Clear; Basophils Absolute Auto 0.1 X10*3/uL (0.0-0.2); Basophils Percent Auto 0.9 % (0-2); Color Urine Dark Yellow; Eosinophils Absolute Auto 0.2 X10*3/uL (0.0-0.4); Eosinophils Percent Auto 2.2 % (0-4); Glucose Urine UA Negative (Negative); Hematocrit 38.5 % (37.0-47.0); Hemoglobin 12.5 g/dl (12.0-16.0); Imm Gran Abs Auto 0.02 X10*3/uL (0.00-0.03); Imm Gran Pct Auto 0.2 % (0.0-0.4); Leukocyte Esterase Urine Negative (Negative); Lymphocytes Absolute Auto 2.7 X10*3/uL (1.2-4.9); Mean Corpuscular HGB Conc 32.5 g/dl (31.0-35.0); Mean Corpuscular Hemoglobin 27.2 pg (27.0-33.0); Mean Corpuscular Volume 83.7 fL (80.0-98.0); Mean Platelet Volume 10.1 fL (9.4-12.3); Monocytes Absolute Auto 0.5 X10*3/uL (0.1-1.2); Monocytes Percent Auto 5.5 % (2-11); Neutrophils Absolute Auto 5.3 x10*3/uL (2.0-8.3); Neutrophils Percent Auto 60.2 % (45-73); Nitrite Urine Negative (Negative); PH 6.5 (5.0-9.0); Platelet Count 334 X10*3/uL (160-400); Red Cell Distribution Width 14.1 % (11.0-16.0); Specific Gravity - Urine 1.025 (1.005-1.025); Urine Blood Negative (Negative); Urine Ketones Negative (Negative); Urine Protein Negative (Neg-Trace); White Blood Count 8.8 X10*3/uL (4.8-10.8)
[2024-06-12 11:17] LABS: Estimated Average Glucose 134 mg/dL; Hemoglobin A1C 145.5563 umol/L; Hemoglobin A1c % 6.3 % (<6.0); Total Hemoglobin (HGBA1C) 3244.0605 umol/L
[2024-06-12 11:42] LABS: Creatinine Urine 79.41 mg/dL; Microalbum/Creatinine Ratio Ur 20.1 ug/mg cr (<30)
[2024-06-12 11:43] LABS: Alanine Aminotransferase 20 U/L (0-31); Albumin Level 4.3 g/dL (3.5-5.0); Alkaline Phosphatase 59 U/L (39-117); Anion Gap 8 (12-20); Aspartate Amino Transferase 18 U/L (5-31); Bilirubin Total 0.4 mg/dL (0.0-1.0); Blood Urea Nitrogen 23 mg/dL (9-16); Calcium 9.5 mg/dL (8.4-10.2); Carbon Dioxide 25 mmol/L (22-29); Chloride 112 mmol/L (96-108); Estimated Glomerular Filt Rate > 60; Glucose Fasting 130 mg/dL (60-99); Potassium 3.9 mmol/L (3.3-5.1); Sodium 141 mmol/L (135-145); Total Protein 6.9 g/dL (6.5-8.0)
[2024-06-12 11:58] LABS: Free T4 (Free Thyroxine) 1.38 ng/dL (0.71-1.85); Thyroid Stimulating Hormone 0.74 uIU/mL (0.32-4.0)
== END 2024-06-12 09:30 | disposition home or self-care (01) ==
LOC: HO.10HDL 09:29
DX: E11.9 Type 2 diabetes mellitus without complications (principal); G47.33 Obstructive sleep apnea (adult) (pediatric); E89.0 Postprocedural hypothyroidism; M85.89 Other specified disorders of bone density and structure, multiple sites; E78.00 Pure hypercholesterolemia, unspecified; J44.9 Chronic obstructive pulmonary disease, unspecified; I10 Essential (primary) hypertension
CPT/HCPCS: 36415; 80053; 81003; 82043; 82570; 83036; 84439; 84443; 85025

== ENCOUNTER 2024-06-24 10:21 | Outpatient (AMB) | payer MEDICARE, SELFPAY ==
[2024-06-24 10:23] VITALS: BP 126/82; PULSE 68; O2SAT 96; BMI 37.4
--- NOTE | 2024-06-24 10:23 | MHC.PC.OV ---
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 Required: No Accompanied by: Self / Same As Patient Allergies codeine [CODEINE] Allergy (Unknown, Verified 06/24/24 10:46) NAUSEA & VOMITING morphine Allergy (Unknown, Verified 06/24/24 10:46) UNKNOWN oxycodone [OxyContin] Allergy (Unknown, Verified 06/24/24 10:46) UNKNOWN Medication List - Last Reconciled 06/24/24 by Giovanni Burnette MD acetaminophen (Tylenol Extra Strength) 1,000 mg PO QID PRN amlodipine 10 mg PO DAILY 90 days blood sugar diagnostic (FreeStyle Lite Strips) As directed once a day blood-glucose meter (FreeStyle Lite Meter kit) As directed cholecalciferol (vitamin D3) 50 mcg PO DAILY 90 days clobetasol 0.05% 1 appl topical BID glucosamine sulfate (Glucosamine) 500 mg PO BID lancets As directed latanoprost 0.005% 1 drp ophthalmic (eye) BEDTIME levothyroxine 112 mcg PO DAILY 90 days lisinopril 40 mg PO DAILY magnesium gluconate 27.5 mg PO BID metformin ER 1,000 mg (2 x 500 mg) PO BID 90 days semaglutide (Ozempic) 1 mg (0.75 mL) subcut QWEEK 4 weeks simvastatin 5 mg PO QPM umeclidinium 62.5 mcg/actuation (Incruse Ellipta) 1 inh inhalation DAILY vitamin B comp and C no.3 (B Complex Plus Vitamin C) 1 cap PO DAILY Tobacco use date assessed: 06/24/24 Fall risk assessment: No Falls in past year Last assessed Fall Risk: 06/24/24 Dental Screening Dental Screen Date: 06/24/24 Did you have a dental visit in the last 12 months?: Yes Did you have a dental problem in the last 6 months where you did not have access to dental care?: No Was dental information given to patient?: Patient has dentist HPI 4 month f/u HPI Details Patient comes in today for her follow up visit for her DM, HTN, hyperlipidemia and hypothyroidism States that she feels okay She denies any headaches or dizziness Denies any chest pains, no increased SOB No nausea/vomiting, no abdominal pain No change in bowel habits noted She had her follow up labs done a couple of weeks ago - to discuss her results [facility] Medical History (Updated 06/24/24 @ 11:08 by Giovanni Burnette MD) Primary osteoarthritis of left knee Basal cell carcinoma of scalp Tick bite of back Post-surgical hypothyroidism Obesity (BMI 30-39.9) Dermatitis History of thyroid cancer History of endometrial cancer Vitamin D deficiency Osteopenia Obstructive sleep apnea COPD (chronic obstructive pulmonary disease) Pure hypercholesterolemia Benign essential hypertension Diabetes mellitus Chronic obstructive pulmonary disease, unspecified Other and unspecified hyperlipidemia Type 2 diabetes mellitus with unspecified complications Essential hypertension Precordial chest pain Surgical History Hx of tubal ligation History of colonoscopy History of thyroidectomy History of hysterectomy History of section Family History Father No problems noted. Mother No problems noted. Social History Housing: House Alcohol intake: current Alcohol intake frequency: holidays/special occasions only Patient Tobacco Use Status: Never used Tobacco e-Cigarette/Vaping Use: Never Used Second Hand Smoke Exposure: No service: No Current occupational status: retired Cognitive needs: No Hearing needs: No Vision needs: No Questionnaire PHQ-9 Over the last 2 weeks, how often have you been bothered by any of the following problems? 1. Little interest or pleasure in doing things: not at all 2. Feeling down, depressed, or hopeless: not at all 3. Trouble falling or staying asleep, or sleeping too much: several days 4. Feeling tired or having little energy: several days 5. Poor appetite or overeating: not at all 6. Feeling bad about yourself - or that you are a failure or have let yourself or your family down: not at all 7. Trouble concentrating on things, such as reading the newspaper or watching television: not at all 8. Moving or speaking so slowly that other people could have noticed. Or the opposite - being so fidgety or restless that you have been moving around a lot more than usual: not at all 9. Thoughts that you would be better off or of hurting yourself in some way: not at all Total score: 2 Depression Screening Interpretation: Negative Depression Screening Done: Yes 03078 - PHQ-9 Billing: Yes Source: Developed by Drs. Everton Ghosh, Sumaya Becerra, Umang Ruano and colleagues, with an educational annette from [employer]. Thrive Questionnaire Date Thrive assessed: 06/24/24 I am a: Patient What is your living situation today?: I have a steady place to live Within the past 12 months, did the food you bought not last and you didn't have the money to get more?: Never true Within the past 12 months, did you worry whether your food would run out before you got money to buy more?: Never true Do you have trouble paying for medicines?: No Do you have trouble getting transportation to medical appointments?: No Do you have trouble paying your heating and electricity bill?: No Do you have trouble taking care of your child, family member or friend?: No Do you have trouble with day-to-day activities such as bathing, preparing meals, shopping, managing finances, etc.?: No Are you currently unemployed and looking for a job?: No Are you interested in more education?: No Please select the resources that you would like help with: None Currently or been in a relationship where the following occur: No concerns reported THRIVE Score: 0 AUDIT C Alcohol Use Questionnaire (AUDIT-C) 1. How often do you have a drink containing alcohol?: Never 3. How often do you have six or more drinks on one occasion?: Never Total Score: 0 Score Reviewed/Action Taken: Yes RAVINDER-7 AMB Questionnaire RAVINDER-7 Date RAVINDER - 7 assessed: 06/24/24 Feeling nervous, anxious, or on edge: 0 = Not at all Not being able to stop or control worryin = Not at all Worrying too much about different things: 0 = Not at all Trouble relaxin = Not at all Being so restless that it is hard to sit still: 0 = Not at all Becoming easily annoyed or irritable: 0 = Not at all Feeling afraid as if something awful might happen: 0 = Not at all Total RAVINDER-7 score (0-4 normal; 5-9 mild; 10-14 moderate; 15-21 severe): 0 Source: Developed by Drs. Everton Ghosh, Sumaya Becerra, Umang Ruano and colleagues, with an educational annette from [employer]. Review of Systems Const Denies chills, Denies fatigue, Denies fever(s) and Denies headache(s) ENT Denies dysphagia, Denies dizziness, Denies otalgia, Denies headache(s), Denies neck pain, Denies odynophagia and Denies sore throat Card Denies chest pain, Denies palpitations and Denies dyspnea Resp Denies chest congestion, Denies cough and Denies dyspnea GI Denies abdominal pain, Denies hematochezia, Reports constipation (at times), Denies dysphagia, Denies heartburn, Denies diarrhea, Denies nausea, Denies odynophagia and Denies vomiting Denies difficulty voiding, Denies nocturia, Denies dysuria and Denies urinary urgency Musc Denies back pain, Reports arthralgias (over the left knee and left leg), Denies joint swelling and Denies neck pain Skin/Breast Denies rash Neuro Denies dizziness and Denies headache(s) Endo Denies fatigue and Denies palpitations Physical exam (Primary Care) Vital Signs: Last Vital Signs Pulse 68 06/24/24 10:23 BP 126/82 06/24/24 10:23 Pulse Ox 96 06/24/24 10:23 Oxygen Delivery Method Room Air 06/24/24 10:23 BMI result Body Mass Index 37.4 Tobacco/Smoking Status: Tobacco use Status Tobacco use date assessed 06/24/24 06/24/24 10:26 Patient Tobacco Use Status Never used Tobacco 06/24/24 10:26 e-Cigarette/Vaping Use Never Used 06/24/24 10:26 PHQ-9: PHQ-9 Score PHQ-9: Total score 2 06/24/24 10:26 Depression Screening Interpretation: Negative Thrive Assessment: Date of Thrive Assessment Date Thrive assessed 06/24/24 06/24/24 10:26 Currently or been in a relationship where the following occur: No concerns reported Const General: no acute distress and alert HENMT Ears: TM's normal bilaterally and EAC's normal Throat: Yes posterior oropharynx normal and Yes tonsils normal (no TP congestion noted) Neck Neck: Yes supple and No lymphadenopathy Thyroid: Thyroid normal Resp Auscultation: clear to auscultation bilaterally, no rales and no wheezes Cardio Rate: regular rate Rhythm: regular rhythm Heart sounds: no murmurs GI Palpation (GI): Soft to palpation and nontender Auscultation: normal bowel sounds General: Yes no CVA tenderness Back/Spine/Pelvis Back: no CVA tenderness Thoracic/Lumbar Spine: No lumbar spinal tenderness Skin Rashes: no rashes Extrem General: Yes no clubbing, cyanosis or edema Left lower extremity: knee Details: tenderness; no swelling Results Reviewed Results Reviewed: Laboratory Tests 02/11/24 06/12/24 10:33 09:33 WBC 8.8 Hgb 12.5 Hct 38.5 Plt Count 334 Sodium 141 Potassium 3.9 Creatinine 0.57 Estimated GFR > 60 Fasting Glucose 130 H Hemoglobin A1c % 6.3 H Calcium 9.5 AST 18 ALT 20 Triglycerides 67 Cholesterol 140 LDL Cholesterol, Calc 83 HDL Cholesterol 44 TSH 0.74 Free T4 1.38 Ur Specific [place] 1.025 Urine Protein Negative Urine Glucose (UA) Negative Urine Blood Negative Urine Nitrite Negative Ur Leukocyte Esterase Negative Microalb/Creat Ratio 20.1 Coding Level of Care Code Est Pt Level 4 (91227) Complex EM visit Add On G2211 Diagnoses Benign essential hypertension I10 Type 2 diabetes mellitus without complication, without long-term current use of insulin E11.9 Diabetes mellitus type: type 2 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 use: without fdc use Diabetes mellitus complication status: without complication Pure hypercholesterolemia E78.00 Chronic obstructive pulmonary disease, unspecified COPD type J44.9 COPD type: unspecified COPD Obstructive sleep apnea G47.33 Osteopenia of multiple sites M85.89 Osteopenia location: multiple sites Vitamin D deficiency E55.9 Post-surgical hypothyroidism E89.0 History of thyroid cancer Z85.850 Primary osteoarthritis of left knee M17.12 Obesity (BMI 30-39.9) E66.9 Additional Codes PHQ-9 - 92387 - PHQ-9 Billing: Yes ([id number]) Assessment & Plan Assessment & Plan (1) Benign essential hypertension: Code(s): I10 - Essential (primary) hypertension Category: Medical Plan: Reinforced low sodium diet Continue Lisinopril 40 mg QD and Amlodipine 10 mg QD Patient is reminded to continue monitoring her blood pressure regularly (2) Diabetes mellitus: Code(s): E11.9 - Type 2 diabetes mellitus without complications Category: Medical Qualifiers: Diabetes mellitus type: type 2 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 use: without fdc use Diabetes mellitus complication status: without complication Qualified Code(s): E11.9 - Type 2 diabetes mellitus without complications Plan: Her HgbA1c was at 6.3% on her labs done a couple of weeks ago (in-office HgbA1c was at 6.1% back in February 2024) - goal is at least <7.0% but ideally <6.5% Reinforced diabetic diet Continue Metformin ER 1000 mg BID and Ozempic 1 mg SQ once a week (3) Pure hypercholesterolemia: Code(s): E78.00 - Pure hypercholesterolemia, unspecified Category: Medical Plan: Results of her labs done a couple of weeks ago reviewed and discussed with patient Reinforced low cholesterol diet Continue Simvastatin 5 mg QD Will recheck her labs and fasting lipids in 4 months for follow up (4) Chronic obstructive pulmonary disease, unspecified: Code(s): J44.9 - Chronic obstructive pulmonary disease, unspecified Category: Medical Qualifiers: COPD type: unspecified COPD Qualified Code(s): J44.9 - Chronic obstructive pulmonary disease, unspecified Plan: Controlled Continue Incruse Ellipta 62.5 mcg 1 inhalation QD and Albuterol HFA 2 inhalations Q 6 hours PRN (5) Obstructive sleep apnea: Comment: uses cpap Code(s): G47.33 - Obstructive sleep apnea (adult) (pediatric) Category: Medical Plan: Continue using her CPAP device when sleeping at night daily - she has been doing well on AutoPAP with pressure settings at 8 to 12 cm H2O Follow up with Sleep Medicine as scheduled (6) Osteopenia: Code(s): M85.80 - Other specified disorders of bone density and structure, unspecified site Category: Medical Qualifiers: Osteopenia location: multiple sites Qualified Code(s): M85.89 - Other specified disorders of bone density and structure, multiple sites Plan: Her initial BMD done in 2015 revealed (+) findings of osteopenia Patient was treated with oral bisphosphonates for over 5 years and Rx was eventually discontinued back in 2019 Repeat BMD done on 06/15/21 revealed findings that were mostly unchanged from previous Will send her for repeat BMD now for follow up She is again encouraged to continue with regular exercise and physical activity to help maintain her bone density (7) Vitamin D deficiency: Code(s): E55.9 - Vitamin D deficiency, unspecified Category: Medical Plan: Continue Vitamin D3 2000 units QD (8) Post-surgical hypothyroidism: Code(s): E89.0 - Postprocedural hypothyroidism Category: Medical Plan: Her TFTs were normal on her recent labs done a couple of weeks ago Continue Levothyroxine 112 mcg QD Follow up with endocrinology as scheduled (9) History of thyroid cancer: Comment: (+) papillary thyroid cancer back in the 70s Code(s): Z85.850 - Personal history of malignant neoplasm of thyroid Category: Medical Plan: Follow up with endocrinology as scheduled for continuing surveillance (10) Primary osteoarthritis of left knee: Code(s): M17.12 - Unilateral primary osteoarthritis, left knee Category: Medical Plan: X-rays of the left knee done back in October 2023 revealed (+) tricompartmental osteoarthritis with mild to moderate degenerative changes, most prominent in the medial compartment Follow up with orthopedics as scheduled (11) Obesity (BMI 30-39.9): Code(s): E66.9 - Obesity, unspecified Category: Medical Plan: Reinforced diet/exercise as tolerated/lose weight States that she is actively working on her diet by incorporating more proteins and cutting out carbs from her diet as much as she can to try to help her lose weight as well as control her diabetes better Plan Follow up in 4 months Orders: Orders Complete Blood Count Auto Diff 4 Months D64.9 - Anemia, unspecified Comprehensive [place]. Panel Fast 4 Months E78.00 - Pure hypercholesterolemia, unspecified Lipid Panel 4 Months E78.00 - Pure hypercholesterolemia, unspecified Free T4 (Free Thyroxine) 4 Months E03.9 - Hypothyroidism, unspecified Microalbumin, Random (w Creat) 4 Months E11.9 - Type 2 diabetes mellitus without complications Hemoglobin A1c 4 Months E11.9 - Type 2 diabetes mellitus without complications XR DEXA axial skeleton Today M85.89 - Other specified disorders of bone density and structure, multiple sites, Z78.0 - Asymptomatic menopausal state Vitamin D 25-OH Total 4 Months E55.9 - Vitamin D deficiency, unspecified Vitamin B12 and Folate 4 Months E53.8 - Deficiency of other specified B group vitamins UA CC w/rflx Micro + Cult 4 Months R30.0 - Dysuria Thyroid Stimulating Hormone 4 Months E03.9 - Hypothyroidism, unspecified
--- OUTSIDE RECORDS SUMMARY | 2024-06-24 12:08 | XMS_ITS ---
Author Organization [facility] Address [address] [place] [phone] Care Team Providers Care Boarding Kennel Or Cattery Operator Name Role Phone Vasile BEGUM, [place] Primary Care Provider Unava ilable Everton Li Unavailable [phone] REASON FOR VISIT rectal bleeding,constipation Problems Problem Type SNOMED Code ICD Code Onset Dates Problem Status W/U Status Risk Notes Problem Diverticular disease of colon (549808514) Diverticulosis of large intestine without perforation or abscess without bleeding (K57.30) Active confirmed Encounters Encounter Location Date Provider Diagnosis [facility] [address] [place] [phone] 03/08/2023 Everton Li Hematochezia K92.1 ; Diverticulosis [...] JOAN HUGGINS MDOB:[birth year] (74 yo F)Acc No.[id number]:03/08/2023 COLON WITH MAC Patient:?JOAN HUGGINS Provider:?Everton Li MD :1950???Age:73 Y???Sex:Female D ate:03/08/2023 Address:[address] [place] [address] [id number] Pcp:Giovanni Burnette MD Subjective: * Chief Complaints: * ???1. Rectal bleeding,consti pation. * Medical History:? Objective: * Vitals:? Assessment: * Assessment: 1.?Hematochezia - K92.1 (Lora jeffrey)???2.?Diverticulosis of large intestine without perforation or abscess without bleeding - K57.30???3.?Other hemorrhoids - K64.8??? Plan: * Treatment: * Procedure Codes:?88075 DIAGN OSTIC COLONOSCOPY, 0529F INTRVL 3+YRS PTS CLNSCP DOCD, 0528F RCMND FLW-UP 10 YRS DOCD, Modifiers: 1P * * The named appointment provid er may or may not be the originator of this progress note, and it is not deemed complete until electronically signed by the appointment provider. Sign off status: Pending * Provider:?Everton Li MD Date:? 024 Generated for Ashley castro/Alejandra/eTransmitting on:?06/24/2024 12:08 PM EDT
--- OUTSIDE RECORDS SUMMARY | 2024-06-24 12:08 | XMS_ITS | Patient Health Record ---
Author Organization [facility] Address [address] [place] [phone] Care Team Providers Care Accounting Systems Analyst Name Role Phone Vasile BEGUM Giovanni Primary Care Provider UnaEverton Irizarry Unavailable [phone] Allergies Allergen (clinical drug ingredient) Drug/Non Drug [...] Problem Status W/U Status Risk Notes Problem 05335904 Rectal bleeding (K62.5) Active confirmed Problem 243697520 Encounter for screening for malignant neoplasm of colon (Z12.11) Active confirmed Problem Diverticular disease of colon (397319263) Diverticulosis of large intestine without perforation or abscess without bleeding (K57.30) Active confirmed Problem Screening for malignant neoplasm of rectum (553013452) Encounter for screening for malignant neoplasm of rectum (Z12.12) Active confirmed Problem 33290546 Preprocedural examination (Z01.818) Active confirmed Problem 37633325 Constipation, unspecified constipation type (K59.00) Active confirmed Plan Of Treatment Future Test Test Name Order Date COLONOSCOPY 02/07/2016 COLONOSCOPY 12/06/2022 Insurance Providers Payer Name Payer Address Payer Phone Subscriber Number Group Number Insured Name Patient Relationship to Insured Coverage Start Date Coverage End Date MED[place]ARE OF [place] [address] [place] [address] [phone] [id number] JOAN HUGGINS Self - patient is the insured MED[employer] ATTN CLAIMS [address] [place] [phone] [id number] JOAN HUGGINS Self - patient is the insured Medical (General) History Medical History History ICD Code Colonoscopy 08-31-2005--hyper plastic polyps, diverticulosis, internal hemorrhoids Pilonidal cyst Denies [place],CVA,renal disease Hypertension Hyperlipidemia Hypothyroidism NIDDM COPD Osteopenia Vitamin D deficiency Obesity Thyroid cancer 1978-Papillary cancer Endometrial adenocarcinoma of uterus Sleep apnea--uses CPAP Surgical History Surgery Date(Month/Year) Subtotal thyroidectomy in 1978 for cance r Tubal ligation 1 [facility] 2013
--- OUTSIDE RECORDS SUMMARY | 2024-06-24 12:09 | XMS_ITS ---
Author Organization [facility] Address [address] [place] [phone] Care Team Providers Care Staff Certified Nurse Midwife Name Role Phone Vasile BEGUM, [place] Primary Care Provider Unava ilable Everton Li [phone] REASON FOR VISIT Trulicity instructions Encounters Encounter Location Date Provider Diagnosis [facility] [address] [place] [phone] 02/27/2023 Everton Li Plan Of Treatment No Information Progress Notes * JOAN HUGGINS MDOB:[birth year] (73 yo F)Acc No.[id number]:02/27/2023 Patient:?JOAN HUGGINS :1950???Age:73 Y???Sex:Female Address:[address] [place] [address] * true * Date:? Generated for Tgi gloria/Alejandra/eTransmitting on:?06/24/2024 12:08 PM EDT
--- OUTSIDE RECORDS SUMMARY | 2024-06-24 12:09 | XMS_ITS ---
Author Organization [facility] Address [address] [place] [phone] Care Team Providers Care Soap Mixer Name Role Phone Vasile BEGUM, [place] Primary Care Provider Unava ilable Everton Li [phone] REASON FOR VISIT Trulicity Encounters Encounter Location Date Provider Diagnosis [facility] [address] [place] [phone] 01/06/2023 Everton Li Plan Of Treatment No Information Progress Notes * JOAN HUGGINS MDOB:[birth year] (72 yo F)Acc No.[id number]:01/06/2023 Patient:?JOAN HUGGINS :1950???Age:72 Y???Sex:Female Address:[address] [place] [address] * true * Date:? Generated for Printi gloria/Alejandra/eTransmitting on:?06/24/2024 12:08 PM EDT
== END 2024-06-24 11:05 | disposition home or self-care (01) ==
LOC: HO.HMCH 10:21
PROVIDERS: PCP Internal Medicine; Visit Provider Internal Medicine
DX: E11.9 Type 2 diabetes mellitus without complications (principal); J44.9 Chronic obstructive pulmonary disease, unspecified; E66.9 Obesity, unspecified; Z68.37 Body mass index [BMI] 37.0-37.9, adult; I10 Essential (primary) hypertension; E78.00 Pure hypercholesterolemia, unspecified; G47.33 Obstructive sleep apnea (adult) (pediatric); M85.89 Other specified disorders of bone density and structure, multiple sites; E55.9 Vitamin D deficiency, unspecified; E89.0 Postprocedural hypothyroidism; Z85.850 Personal history of malignant neoplasm of thyroid; M17.12 Unilateral primary osteoarthritis, left knee

== ENCOUNTER → 2024-06-24 10:21 | Outpatient (BNVA) | payer MEDICARE, SELFPAY | PROVIDERS: PCP Internal Medicine; Visit Provider Internal Medicine | DX: I10 Essential (primary) hypertension (principal); E11.9 Type 2 diabetes mellitus without complications; E78.00 Pure hypercholesterolemia, unspecified; J44.9 Chronic obstructive pulmonary disease, unspecified; G47.33 Obstructive sleep apnea (adult) (pediatric); M85.89 Other specified disorders of bone density and structure, multiple sites; E55.9 Vitamin D deficiency, unspecified; E89.0 Postprocedural hypothyroidism; M17.12 Unilateral primary osteoarthritis, left knee; E66.9 Obesity, unspecified; Z68.37 Body mass index [BMI] 37.0-37.9, adult; Z85.850 Personal history of malignant neoplasm of thyroid; Z71.3 Dietary counseling and surveillance | CPT/HCPCS: 96127; 99212 ==

== ENCOUNTER 2024-07-30 09:55 | Outpatient (REF) | payer MEDICARE, SELFPAY ==
--- NOTE | ~2024-07-30 | MM_ITS ---
EXAMINATION: DXA BONE DENSITY AXIAL HISTORY: Z78.0 - Asymptomatic menopausal state TECHNIQUE: [employer] Dual energy absorptiometry (DEXA) of the lumbar spine, total left hip, and femoral neck was performed. COMPARISON: Comparison is made with the prior examination dated 06/15/2021. FINDINGS: The bone mineral density of the lumbar spine is 0.936, corresponding to a T-score of -2.0, and a Z-score of -1.0. This is indicative of osteopenia. This represents a BMD change of -5.6% compared to the prior exam. This is statistically significant. The bone mineral density of the left total hip is 0.909, corresponding to a T-score of -0.8, and a Z-score of 0.5. This is indicative of normal bone mineral density. This represents a BMD change of -5.4% compared to the prior exam. This is statistically significant. The bone mineral density of the left femoral neck is 0.807, corresponding to a T-score of -1.7, and a Z-score of -0.2. This is indicative of osteopenia. This represents a BMD change of -1.1% compared to the prior exam. FRACTURE RISK: The FRAX index suggests a ten year probability of major osteoporotic fracture of 18.8%, and of hip fracture 9.8%. MM/XR DEXA axial skeleton IMPRESSION: Based on bone mineral density, and according to World Health Organization (WHO) criteria, the diagnosis is consistent with osteopenia. All bone density values are in grams per centimeter squared (g/cm2). Statistically, 68% of repeat scans fall within 1 SD (+/- 0.010 g/cm2 for AP spine L1-L4) and 1 SD (+/- 0.012 g/cm2 for femur total) FRAX is a trademark of the [employer] [employer], a World Health Organization (WHO) Collaborating Center. Electronically signed by: Everton Lang MD 07/30/2024 10:22 AM EDT
--- OUTSIDE RECORDS SUMMARY | 2024-07-30 10:16 | XMS_ITS | Patient Health Record ---
Author Organization [facility] Address [address] [place] [phone] Care Team Providers Care Licensing Coordinator Name Role Phone Vasile BEGUM Giovanni Primary Care Provider UnaEverton Irizarry Unavailable [phone] Allergies Allergen (clinical drug ingredient) Drug/Non Drug [...] Problem Status W/U Status Risk Notes Problem 25741257 Rectal bleeding (K62.5) Active confirmed Problem 312389346 Encounter for screening for malignant neoplasm of colon (Z12.11) Active confirmed Problem Diverticular disease of colon (329260238) Diverticulosis of large intestine without perforation or abscess without bleeding (K57.30) Active confirmed Problem Screening for malignant neoplasm of rectum (450264659) Encounter for screening for malignant neoplasm of rectum (Z12.12) Active confirmed Problem 17163149 Preprocedural examination (Z01.818) Active confirmed Problem 24216434 Constipation, unspecified constipation type (K59.00) Active confirmed Plan Of Treatment Future Test Test Name Order Date COLONOSCOPY 02/07/2016 COLONOSCOPY 12/06/2022 Insurance Providers Payer Name Payer Address Payer Phone Subscriber Number Group Number Insured Name Patient Relationship to Insured Coverage Start Date Coverage End Date [place] [address] [place] [address] [phone] [id number] JOAN HUGGINS Self - patient is the insured MEDEX ATTN CLAIMS [address] [place] [address] [id number] JOAN HUGGINS Self - patient is the [...] cance r Tubal ligation 1 [facility] 2013
== END 2024-07-30 09:56 | disposition home or self-care (01) ==
LOC: HO.MAMMO 09:55
PROVIDERS: PCP Internal Medicine; Visit Provider Internal Medicine
DX: Z78.0 Asymptomatic menopausal state (principal); M85.89 Other specified disorders of bone density and structure, multiple sites
CPT/HCPCS: 77080

== ENCOUNTER → 2024-07-30 10:00 | Outpatient (BNV) | payer MEDICARE, SELFPAY | PROVIDERS: PCP Internal Medicine; Visit Provider Radiology Diagnostic Radiology | DX: E28.39 Other primary ovarian failure (principal) | CPT/HCPCS: 77080 ==

== ENCOUNTER 2024-10-08 10:03 | Outpatient (REF) | payer MEDICARE, SELFPAY ==
--- OUTSIDE RECORDS SUMMARY | 2023-07-01 13:10 | XMS_ITS | Encounter Summary ---
Author Organization [facility] Address [address] [place] [address] Phone Care Team Providers Care Security Control Assessor Name Role Phone Giovanni Burnette MD Primary Care Provider [phone] [phone] Encounter Details Date Type Department Care Team (Late st Contact Info) Description 07/01/2023 1:10 PM EDT Hospital Encounter [facility] [address] [place] [phone] Julissa Silver, [address] [place] [address] [email or web address] Social History Tobacco Use Types Packs/Day [...] clinician's provided indication for this examination in [facility]: S/P Fall; ? fx COMPARISON: None FINDINGS: Left Knee: No fracture. Normal alignment. Moderate degenerative joint disease. Procedure Note Joby Danielson MD, SOFYA - 07/01/2023 XR KNEE 4 OR MORE VIEWS (LEFT) Referring clinician's provided indication for this examination in [facility]:S/P Fall; ? fx COMPARISON: None FINDINGS: Left Knee: No fracture. Normal alignment. Moderate degenerative jointdisease. IMPRESSION: No fracture or dislocation. Julissa Silvre DNP IMG XR LOWER EXTREMITY Final Result documented in this encounter Visit Diagnoses Not on filedocumented in this encounter Care Teams Security Control Assessor Relationship Specialty Start Date End Date Giovanni Burnette MD [address] [place] [address] [place] [address] PCP - General Internal Medicine 03/15/20 documented as of this encounter Additional Source Comments The information contained in this document represents components of the legal health record. It is not the complete legal health record.[facility]
[2024-10-08 10:17] LABS: MANUAL DIFF FLAG NO
[2024-10-08 10:34] LABS: Hematocrit 38.4 % (37.0-47.0); Hemoglobin 12.7 g/dl (12.0-16.0); Imm Gran Abs Auto 0.04 X10*3/uL (0.00-0.03); Imm Gran Pct Auto 0.4 % (0.0-0.4); Lymphocytes Absolute Auto 3.0 X10*3/uL (1.2-4.9); Mean Corpuscular HGB Conc 33.1 g/dl (31.0-35.0); Mean Corpuscular Hemoglobin 27.7 pg (27.0-33.0); Mean Corpuscular Volume 83.7 fL (80.0-98.0); NRBC Abs Auto 0.000 X10*3/uL (0.0-0.012); NRBC Pct Auto 0.0 /100WBC (0.0-0.2); Platelet Count 326 X10*3/uL (160-400); Red Blood Count 4.59 X10*6/uL (4.20-5.50); White Blood Count 9.9 X10*3/uL (4.8-10.8)
--- OUTSIDE RECORDS SUMMARY | 2024-10-08 10:34 | XMS_ITS | Patient Health Record ---
Author Organization [facility] Address [address] [place] [id number] Care Team Providers Care Devulcanizer Tender Name Role Phone Vasile BEGUM Giovanni Primary Care Provider UnaEverton Irizarry Unavailable [phone] Allergies Allergen (clinical drug ingredient) Drug/Non Drug [...] Problem Status W/U Status Risk Notes Problem 44571755 Rectal bleeding (K62.5) Active confirmed Problem 559977112 Encounter for screening for malignant neoplasm of colon (Z12.11) Active confirmed Problem Diverticular disease of colon (169373768) Diverticulosis of large intestine without perforation or abscess without bleeding (K57.30) Active confirmed Problem Screening for malignant neoplasm of rectum (776562265) Encounter for screening for malignant neoplasm of rectum (Z12.12) Active confirmed Problem 42177774 Preprocedural examination (Z01.818) Active confirmed Problem 90876973 Constipation, unspecified constipation type (K59.00) Active confirmed Plan Of Treatment Future Test Test Name Order Date COLONOSCOPY 02/07/2016 COLONOSCOPY 12/06/2022 Insurance Providers Payer Name Payer Address Payer Phone Subscriber Number Group Number Insured Name Patient Relationship to Insured Coverage Start Date Coverage End Date MEDICARE OF [place] [address] [place] [address] [id number] JOAN HUGGINS Self - patient is the insured [employer] CLAIMS [address] [place] [phone] [id number] JOAN HUGGINS Self - patient is the insured Medical (General) History Medical History History ICD Code Colonoscopy 08-31-2005--hyper plastic polyps, diverticulosis, internal hemorrhoids Pilonidal cyst Denies [place],CVA,renal disease Hypertension Hyperlipidemia Hypothyroidism NIDDM COPD Osteopenia Vitamin D deficiency Obesity Thyroid cancer 1978-Papillary cancer Endometrial adenocarcinoma of uterus Sleep apnea--uses CPAP Surgical History Surgery Date(Month/Year) Subtotal thyroidectomy in 1978 for cance r Tubal ligation 1 [facility] 2013
[2024-10-08 10:46] LABS: Hemoglobin A1C 166.5125 umol/L; Total Hemoglobin (HGBA1C) 3427.2234 umol/L
[2024-10-08 11:18] LABS: Appearance Urine Clear; Glucose Urine UA Negative (Negative); PH 8.5 (5.0-9.0); Specific Gravity - Urine 1.020 (1.005-1.025); UMIC TRIGGER UACC YES
[2024-10-08 11:25] LABS: Alanine Aminotransferase 20 U/L (0-31); Albumin Level 4.3 g/dL (3.5-5.0); Alkaline Phosphatase 68 U/L (39-117); Anion Gap 13 (12-20); Aspartate Amino Transferase 15 U/L (5-31); Blood Urea Nitrogen 17 mg/dL (9-16); Calcium 9.5 mg/dL (8.4-10.2); Carbon Dioxide 24 mmol/L (22-29); Chloride 110 mmol/L (96-108); Cholesterol 129 mg/dL (<200); Estimated Glomerular Filt Rate > 60; HDL Cholesterol 46 mg/dL (>40); Potassium 4.6 mmol/L (3.3-5.1); Sodium 142 mmol/L (135-145); Total Protein 6.8 g/dL (6.5-8.0); Triglycerides 56 mg/dL (<150)
[2024-10-08 11:33] LABS: Free T4 (Free Thyroxine) 1.33 ng/dL (0.71-1.85); Thyroid Stimulating Hormone 0.83 uIU/mL (0.32-4.0)
[2024-10-08 11:36] LABS: Vitamin B12 251 pg/mL (200-900)
[2024-10-08 12:14] LABS: Microalbum/Creatinine Ratio Ur 10.6 ug/mg cr (<30)
[2024-10-08 12:28] LABS: Folate 14.5 ng/mL (> or = 4.0)
== END 2024-10-08 10:04 | disposition home or self-care (01) ==
LOC: HO.LAB 10:03
PROVIDERS: PCP Internal Medicine; Visit Provider Internal Medicine
DX: E11.9 Type 2 diabetes mellitus without complications (principal); E55.9 Vitamin D deficiency, unspecified; E53.8 Deficiency of other specified B group vitamins; E03.9 Hypothyroidism, unspecified; E78.00 Pure hypercholesterolemia, unspecified; D64.9 Anemia, unspecified
CPT/HCPCS: 36415; 80053; 80061; 81001; 82043; 82306; 82570; 82607; 82746; 83036; 84439; 84443; 85025

== ENCOUNTER 2024-10-12 10:07 | Outpatient (AMB) | payer MEDICARE, SELFPAY ==
--- OUTSIDE RECORDS SUMMARY | 2023-07-01 13:10 | XMS_ITS | Encounter Summary ---
Author Organization [facility] Address [address] [place] [phone] Phone Care Team Providers Care Rheumatology Nurse Name Role Phone Giovanni Burnette MD Primary Care Provider [phone] Encounter Details Date Type Department Care Team (Late st Contact Info) Description 07/01/2023 1:10 PM EDT Hospital Encounter [facility] [address] [place] [phone] Julissa Silver, [address] [place] [address] [email or web address] Social History Tobacco Use Types Packs/Day [...] clinician's provided indication for this examination in [facility]: S/P Fall; ? fx COMPARISON: None FINDINGS: Left Knee: No fracture. Normal alignment. Moderate degenerative joint disease. Procedure Note Joby Danielson MD, SOFYA - 07/01/2023 XR KNEE 4 OR MORE VIEWS (LEFT) Referring clinician's provided indication for this examination in [facility]:S/P Fall; ? fx COMPARISON: None FINDINGS: Left Knee: No fracture. Normal alignment. Moderate degenerative jointdisease. IMPRESSION: No fracture or dislocation. Julissa Silver DNP IMG XR LOWER EXTREMITY Final Result documented in this encounter Visit Diagnoses Not on filedocumented in this encounter Care Teams Rheumatology Nurse Relationship Specialty Start Date End Date Giovanni Burnette MD [address] [place] [address] Dr Aguilar [facility] [place] [address] PCP - General Internal Medicine 03/15/20 documented as of this encounter Additional Source Comments The information contained in this document represents components of the legal health record. It is not the complete legal health record.[facility]
[2024-10-12 10:11] VITALS: BP 110/68; PULSE 67; O2SAT 96; BMI 36.3
--- NOTE | 2024-10-12 10:11 | A.OFFVIS_ITS ---
Intake Vital Signs 10/12/24 10:11 Height 5 ft 1 in Weight 192 lb 2 oz BMI 36.3 BP 110/68 Blood Pressure Location Lt brachial Position Sitting Pulse 67 Pulse Source Pulse Oximeter Pulse Oximetry (%) 96 Oxygen Delivery Method Room Air Intake Visit Reasons: RUST G0439 [facility] Worker Required: No Accompanied by: Self / Same As Patient Allergies codeine (CODEINE) Allergy (Unknown, Verified 10/12/24 10:39) NAUSEA & VOMITING morphine Allergy (Unknown, Verified 10/12/24 10:39) UNKNOWN oxycodone (OxyContin) Allergy (Unknown, Verified 10/12/24 10:39) UNKNOWN Medication List - Last Reconciled 10/12/24 by Giovanni Burnette MD acetaminophen (Tylenol Extra Strength) 1,000 mg PO QID PRN amlodipine 10 mg PO DAILY 90 days blood sugar diagnostic (FreeStyle Lite Strips) As directed once a day blood-glucose meter (FreeStyle Lite Meter kit) As directed cholecalciferol (vitamin D3) 50 mcg PO DAILY 90 days clobetasol 0.05% 1 appl topical BID glucosamine sulfate (Glucosamine) 500 mg PO BID lancets As directed latanoprost 0.005% 1 drp ophthalmic (eye) BEDTIME levothyroxine 112 mcg PO DAILY 90 days lisinopril 40 mg PO DAILY magnesium gluconate 27.5 mg PO BID metformin ER 1,000 mg (2 x 500 mg) PO BID 90 days semaglutide (Ozempic) 1 mg (0.75 mL) subcut QWEEK 4 weeks simvastatin 5 mg PO QPM umeclidinium 62.5 mcg/actuation (Incruse Ellipta) 1 inh inhalation DAILY vitamin B comp and C no.3 (B Complex Plus Vitamin C) 1 cap PO DAILY HPI RUST G0439 HPI Details Patient comes in today for her Annual Medicare Wellness Exam AND follow up visit States that she feels okay She denies any headaches or dizziness Denies any chest pains, no increased SOB No nausea/vomiting, no abdominal pain No change in bowel habits noted She had her follow up labs done a few days ago - to discuss her results [place] of care was reviewed and updated today Patient has a healthcare proxy in place and on file but her HCP was her , who has since so this has to be modified She was provided with a new HCP form and MOLST form and she will bring these home to fill out with her children and bring them back as soon as possible IPPE/AWV: c/o of Annual Wellness Visit, subsequent visit. Medical / Social History Reviewed Past Medical History Yes . [place] of Care / Care Team list updated Yes . Surgical/Hospitalization History Yes . Current Medications (including OTC and supplements) Yes . Family History Yes . Tobacco Control form Yes . AUDIT-C (Alcohol use) form Yes . Illicit drug use in Social History Yes . Current diagnosis of depression? No Appropriate PHQ2/PHQ9 completed Yes . Data entered by Res Counselor and reviewed by provider Home Safety Throw rugs? No Grab bars? No Raised toilet seats? No Working smoke detectors? Yes Working carbon monoxide detectors? Yes Data entered by Res Counselor and reviewed by provider Activities of Daily Living (ADLs) Difficulty bathing or showering? No Difficulty dressing? No Difficulty using the toilet? No Difficulty getting in and out of bed? No Difficulty walking? No Receives help from another person with any of the above tasks? No Instrumental Activities of Daily Living (IADLs) Uses the telephone without help Gets to places out of walking distance without help Goes shopping for groceries without help Prepares own meals without help Does own minor home maintenance without help Does own laundry without help Does own housework without help Manages own money without help Currently takes medications? Yes Takes medication without help End-of-Life Planning Discussed advance directive Yes Advance directive on file Discussed wishes expressed in advance directive agreed to following patient's wishes Fall Risk: Fall History Have you had any falls with injury in the past year? No . Have you had two or more falls in the past year? No . Fall Risk Assessment: No falls in the past year . HRA filled out by the patient, reviewed by Provider and scanned. [facility] Medical History Primary osteoarthritis of left knee Basal cell carcinoma of scalp Tick bite of back Post-surgical hypothyroidism Obesity (BMI 30-39.9) Dermatitis History of thyroid cancer History of endometrial cancer Vitamin D deficiency Osteopenia Obstructive sleep apnea COPD (chronic obstructive pulmonary disease) Pure hypercholesterolemia Benign essential hypertension Diabetes mellitus Chronic obstructive pulmonary disease, unspecified Other and unspecified hyperlipidemia Type 2 diabetes mellitus with unspecified complications Essential hypertension Precordial chest pain Surgical History Hx of tubal ligation History of colonoscopy History of thyroidectomy History of hysterectomy History of section Family History Father No problems noted. Mother No problems noted. Social History Housing: House Alcohol intake: current Alcohol intake frequency: holidays/special occasions only Patient Tobacco Use Status: Never used Tobacco e-Cigarette/Vaping Use: Never Used Second Hand Smoke Exposure: No service: No Current occupational status: retired Cognitive needs: No Hearing needs: No Vision needs: No Questionnaire Medicare Wellness Checkup [age] What gender do you identify with?: female During the past 4 weeks, how much have you been bothered by emotional problems such as feeling anxious, depressed, irritable, sad or downhearted, and blue?: not at all During the past 4 weeks, has your physical & emotional health limited your social activities with family, friends, neighbors, or groups?: not at all During the past 4 weeks, how much bodily pain have you generally had?: very mild pain During the past 4 weeks, was someone available to help you if you needed & wanted help?: yes, as much as I wanted During the past 4 weeks, what was the hardest physical activity you could do for at least 2 minutes?: moderate Can you get to places out of walking distance without help? (For eg., can you travel alone on buses, taxis or drive your car?): Yes Can you go shopping for groceries or clothes without someone's help?: Yes Can you prepare your own meals?: Yes Can you do your housework without help?: Yes Because of any health problems, do you need the help of another person with your personal care needs such as eating, bathing, dressing or getting around the house?: No Can you handle your own money without help?: Yes During the past 4 weeks, how would you rate your health in general?: good During the past 4 weeks how have things been going for you?: pretty well Are you having difficulties driving your car?: no Do you always fasten your seat belt when you are in a car?: yes, usually During past 4 weeks, have you been bothered by the following: never: Falling or dizzy when standing up, Sexual problems?, Trouble eating well?, Teeth or denture problems? and Problems using the telephone? and sometimes: Tiredness or fatigue? Have you fallen 2 or more times in the past year?: No Are you afraid of falling?: Yes During the past 4 weeks, how many drinks of wine, beer, or other alcoholic beverages did you have?: no alcohol at all Do you exercise for about 20 minutes 3 or more times a week?: no, I usually do not exercise this much Have you been given information to help with the following?: yes: Hazards in your house that might hurt you? and yes: Keeping track of your medications? How often do you have trouble taking medicines the way you have been told to take them?: I always take medicine as prescribed How confident are you that you can control & manage most of your health problems?: very confident What is your race?: White Mini Mental State Exam (MMSE) Orientation What is the (year) (season) (date) (day) (month)?: year, season, date, day and month Where are we (state) (county) (town or city) (hospital) (floor)?: state, county, town or city, hospital/clinic and floor Score Score: 10 Activity of Daily Living Bathing - sponge bath, tub bath or shower: receives no assistance (gets in/out by self, if usual bathing means Dressing - getting clothes from closets & drawers, including inner/outer garments & fasteners.: gets clothes & gets completely dressed without help Toileting - going to the 'toilet room' for urine/bowel elimination & cleaning self/arranging clothes: goes to toilet room, cleans self, arranges clothes without help Transfer: moves in & out of bed and chair without help (may use support object) Continence: controls urination/bowel movements completely by self Feeding: feeds self without help Total Score: 0 Information obtained from: patient Using telephone: independent Traveling: independent Shopping: independent Preparing meals: independent Housework: independent Taking medicine: independent Managing money: independent PHQ-9 Over the last 2 weeks, how often have you been bothered by any of the following problems? 1. Little interest or pleasure in doing things: not at all 2. Feeling down, depressed, or hopeless: not at all 3. Trouble falling or staying asleep, or sleeping too much: not at all 4. Feeling tired or having little energy: several days 5. Poor appetite or overeating: not at all 6. Feeling bad about yourself - or that you are a failure or have let yourself or your family down: not at all 7. Trouble concentrating on things, such as reading the newspaper or watching television: not at all 8. Moving or speaking so slowly that other people could have noticed. Or the opposite - being so fidgety or restless that you have been moving around a lot more than usual: not at all 9. Thoughts that you would be better off or of hurting yourself in some way: not at all Total score: 1 Depression Screening Interpretation: Negative Depression Screening Done: Yes 35177 - PHQ-9 Billing: Yes Source: Developed by Drs. Everton Ghosh, Sumaya Becerra, Umang Ruano and colleagues, with an educational annette from [employer]. PHQ-2/PHQ-9 PHQ-2 Over the last 2 weeks, how often have you been bothered by any of the following problems? 1. Little interest or pleasure in doing things: not at all 2. Feeling down, depressed, or hopeless: not at all Total score: 0 If score is 3 or greater, continue 3. Trouble falling or staying asleep, or sleeping too much: not at all 4. Feeling tired or having little energy: several days 5. Poor appetite or overeating: not at all 6. Feeling bad about yourself - or that you are a failure or have let yourself or your family down: not at all 7. Trouble concentrating on things, such as reading the newspaper or watching television: not at all 8. Moving or speaking so slowly that other people could have noticed. Or the opposite - being so fidgety or restless that you have been moving around a lot more than usual: not at all 9. Thoughts that you would be better off or of hurting yourself in some way: not at all Total score: 1 0-4 None-Minimal, 5-9 Mild, 10-14 Moderate, 15-19 Moderately Severe, 20-27 Severe Source: Developed by Drs. Everton Ghosh, Sumaya Becerra, Umang Ruano and colleagues, with an educational annette from [employer]. Thrive Questionnaire Date Thrive assessed: 10/12/24 I am a: Patient What is your living situation today?: I have a steady place to live Within the past 12 months, did the food you bought not last and you didn't have the money to get more?: Never true Within the past 12 months, did you worry whether your food would run out before you got money to buy more?: Never true Do you have trouble paying for medicines?: No Do you have trouble getting transportation to medical appointments?: No Do you have trouble paying your heating and electricity bill?: No Do you have trouble taking care of your child, family member or friend?: No Do you have trouble with day-to-day activities such as bathing, preparing meals, shopping, managing finances, etc.?: No Are you currently unemployed and looking for a job?: No Are you interested in more education?: No Please select the resources that you would like help with: None Currently or been in a relationship where the following occur: No concerns reported THRIVE Score: 0 RAVINDER-7 AMB Questionnaire RAVINDER-7 Date RAVINDER - 7 assessed: 10/12/24 Feeling nervous, anxious, or on edge: 0 = Not at all Not being able to stop or control worryin = Not at all Worrying too much about different things: 0 = Not at all Trouble relaxin = Not at all Being so restless that it is hard to sit still: 0 = Not at all Becoming easily annoyed or irritable: 0 = Not at all Feeling afraid as if something awful might happen: 0 = Not at all Total RAVINDER-7 score (0-4 normal; 5-9 mild; 10-14 moderate; 15-21 severe): 0 Source: Developed by Drs. Everton Ghosh, Sumaya Becerra, Umang Ruano and colleagues, with an educational annette from [employer]. Review of Systems Const Denies chills, Denies fatigue, Denies fever(s) and Denies headache(s) ENT Denies dysphagia, Denies dizziness, Denies otalgia, Denies headache(s), Denies neck pain, Denies odynophagia and Denies sore throat Card Denies chest pain, Denies palpitations and Denies dyspnea Resp Denies chest congestion, Denies cough and Denies dyspnea GI Denies abdominal pain, Denies hematochezia, Reports constipation (at times), Denies dysphagia, Denies heartburn, Denies diarrhea, Denies nausea, Denies odynophagia and Denies vomiting Denies difficulty voiding, Denies nocturia, Denies dysuria and Denies urinary urgency Musc Denies back pain, Reports arthralgias (over the left knee and left leg), Denies joint swelling and Denies neck pain Skin/Breast Denies rash Neuro Denies dizziness and Denies headache(s) Endo Denies fatigue and Denies palpitations Physical Exam Vital Signs: Last Vital Signs Pulse 67 10/12/24 10:11 BP 110/68 10/12/24 10:11 Pulse Ox 96 10/12/24 10:11 Oxygen Delivery Method Room Air 10/12/24 10:11 BMI result Body Mass Index 36.3 IPPE/AWV: Balance Romberg Yes . Tandem walk NO . Walk and Turn Yes . Rise from sit to stand Yes . Vision Corrective lens No Vision screen pass Hearing Whisper test pass . Urinary incont. no. EKG Not clinically necessary. Const General: no acute distress and alert Orientation/consciousness: patient oriented x3 HEENT Ears: TM's normal bilaterally and EAC's normal Throat: Yes posterior oropharynx normal and Yes tonsils normal (no TP congestion noted) Neck Neck: Yes supple and No lymphadenopathy Thyroid: Thyroid normal Resp Auscultation: clear to auscultation bilaterally, no rales and no wheezes Cardio Rate: regular rate Rhythm: regular rhythm Heart sounds: no murmurs GI Palpation (GI): Soft to palpation and nontender Auscultation: normal bowel sounds General: Yes no CVA tenderness Back/Spine/Pelvis Back: no CVA tenderness Thoracic/Lumbar Spine: No lumbar spinal tenderness Skin Lesions: no lesions Rashes: no rashes Neuro General: patient oriented x3 Extrem General: Yes no clubbing, cyanosis or edema Left lower extremity: hip/thigh Details: tenderness Location: of the hip Location: posteriorly and knee Details: tenderness Location: of the medial joint line and crepitus Location: at the knee; no swelling Results Reviewed Results Reviewed: Laboratory Tests 10/08/24 10/08/24 10:10 10:15 WBC 9.9 Hgb 12.7 Hct 38.4 Plt Count 326 Sodium 142 Potassium 4.6 Creatinine 0.56 Estimated GFR > 60 Fasting Glucose 131 H Hemoglobin A1c % 6.6 H Calcium 9.5 AST 15 ALT 20 Triglycerides 56 Cholesterol 129 LDL Cholesterol, Calc 72 HDL Cholesterol 46 Vitamin B12 251 25-OH Vitamin D Total 51.6 TSH 0.83 Free T4 1.33 Ur Specific [place] 1.020 Urine Protein Negative Urine Glucose (UA) Negative Urine Blood Negative Urine Nitrite Negative Ur Leukocyte Esterase Trace H Microalb/Creat Ratio 10.6 Assessment & Plan Assessment & Plan (1) Medicare annual wellness visit, subsequent: Code(s): Z00.00 - Encounter for general adult medical examination without abnormal findings Plan: HRA form discussed and completed with patient; form will be scanned into patient's chart FEDERICO updated (2) Benign essential hypertension: Code(s): I10 - Essential (primary) hypertension Plan: Reinforced low sodium diet Continue Lisinopril 40 mg QD and Amlodipine 10 mg QD Patient is again reminded to continue monitoring her blood pressure regularly (3) Diabetes mellitus: Code(s): E11.9 - Type 2 diabetes mellitus without complications Qualifiers: Diabetes mellitus complication status: without complication Diabetes mellitus joint terminal attack controller insulin use: without nursing home use Diabetes mellitus type: type 2 Qualified Code(s): E11.9 - Type 2 diabetes mellitus without complications Plan: Her HgbA1c was at 6.6% on her labs done a few days ago (was previously at 6.3% a few months ago) - goal is at least <7.0% but ideally <6.5% Reinforced diabetic diet Continue Metformin ER 1000 mg BID and Ozempic 1 mg SQ once a week (4) Pure hypercholesterolemia: Code(s): E78.00 - Pure hypercholesterolemia, unspecified Plan: Results of her labs done a few days ago reviewed and discussed with patient Reinforced low cholesterol diet Continue Simvastatin 5 mg QD Will recheck her labs and fasting lipids in 4 months for follow up (5) Chronic obstructive pulmonary disease, unspecified: Code(s): J44.9 - Chronic obstructive pulmonary disease, unspecified Qualifiers: COPD type: unspecified COPD Qualified Code(s): J44.9 - Chronic obstructive pulmonary disease, unspecified Plan: Controlled Continue Incruse Ellipta 62.5 mcg 1 inhalation QD and Albuterol HFA 2 inhalations Q 6 hours PRN (6) Obstructive sleep apnea: Comment: uses cpap Code(s): G47.33 - Obstructive sleep apnea (adult) (pediatric) Plan: Continue using her CPAP device when sleeping at night daily - she has been doing well on AutoPAP with pressure settings at 8 to 12 cm H2O Follow up with Sleep Medicine as scheduled (7) Osteopenia: Code(s): M85.80 - Other specified disorders of bone density and structure, unspecified site Qualifiers: Osteopenia location: multiple sites Qualified Code(s): M85.89 - Other specified disorders of bone density and structure, multiple sites Plan: Her initial BMD done in 2015 revealed (+) findings of osteopenia Patient was treated with oral bisphosphonates for over 5 years and Rx was eventually discontinued back in 2018 Repeat BMD done on 06/15/21 revealed findings that were mostly unchanged from previous Her most recent BMD on 07/30/2024 revealed (+) osteopenia, with her BMD declining only slightly from previous in her lumbar spine and total left hip - her lowest T score is -2.0 in the lumbar spine She is again encouraged to continue with regular exercise and physical activity to help maintain her bone density (8) Vitamin D deficiency: Code(s): E55.9 - Vitamin D deficiency, unspecified Plan: Continue Vitamin D3 2000 units QD (9) Post-surgical hypothyroidism: Code(s): E89.0 - Postprocedural hypothyroidism Plan: Her TFTs were normal on her recent labs Continue Levothyroxine 112 mcg QD Follow up with endocrinology as scheduled (10) History of thyroid cancer: Comment: (+) papillary thyroid cancer back in the Code(s): Z85.850 - Personal history of malignant neoplasm of thyroid Plan: Follow up with endocrinology as scheduled for continuing surveillance (11) Primary osteoarthritis of left knee: Code(s): M17.12 - Unilateral primary osteoarthritis, left knee Plan: X-rays of the left knee done back in October 2023 revealed (+) tricompartmental osteoarthritis with mild to moderate degenerative changes, most prominent in the medial compartment Follow up with orthopedics as scheduled (12) Obesity (BMI 30-39.9): Code(s): E66.9 - Obesity, unspecified Plan: Reinforced diet/exercise as tolerated/lose weight Plan Follow up in 4 months Orders: Orders Hemoglobin A1c 4 Months E11.9 - Type 2 diabetes mellitus without complications Vitamin D 25-OH Total 4 Months E55.9 - Vitamin D deficiency, unspecified Complete Blood Count Auto Diff 4 Months D64.9 - Anemia, unspecified Comprehensive [place]. Panel Fast 4 Months E78.00 - Pure hypercholesterolemia, unspecified Lipid Panel 4 Months E78.00 - Pure hypercholesterolemia, unspecified Microalbumin, Random (w Creat) 4 Months E11.9 - Type 2 diabetes mellitus without complications Thyroid Stimulating Hormone 4 Months E03.9 - Hypothyroidism, unspecified Free T4 (Free Thyroxine) 4 Months E03.9 - Hypothyroidism, unspecified UA CC w/rflx Micro + Cult 4 Months R30.0 - Dysuria Quality Reporting (2019) Depression/Bipolar (159/160/161/177) PHQ-9: Total score: 1 Coding Level of Care Code Medicare Subsequent (G0439) Est Pt Level 4 (62086) Diagnoses Medicare annual wellness visit, subsequent Z00.00 Benign essential hypertension I10 Type 2 diabetes mellitus without complication, without long-term current use of insulin E11.9 Diabetes mellitus complication status: without complication Diabetes mellitus joint terminal attack controller insulin use: without nursing home use Diabetes mellitus type: type 2 Pure hypercholesterolemia E78.00 Chronic obstructive pulmonary disease, unspecified COPD type J44.9 COPD type: unspecified COPD Obstructive sleep apnea G47.33 Osteopenia of multiple sites M85.89 Osteopenia location: multiple sites Vitamin D deficiency E55.9 Post-surgical hypothyroidism E89.0 History of thyroid cancer Z85.850 Primary osteoarthritis of left knee M17.12 Obesity (BMI 30-39.9) E66.9 CPT Codes Advance Care Planning - Time spent: 1-15 minutes, on File ([id number]) Additional Codes PHQ-9 - 42865 - PHQ-9 Billing: Yes ([id number]) Advance Care Planning Advance Care Planning discussion: Exists, not on file (needs to change/modify HCP form as her ) Date of discussion: 10/12/24 Who was present: patient, PCP Time spent: 1-15 minutes, on File
--- OUTSIDE RECORDS SUMMARY | 2024-10-12 10:48 | XMS_ITS | Patient Health Record ---
Author Organization [facility] Address [address] [place] [id number] Care Team Providers Care Packaging Supervisor Name Role Phone Vasile BEGUM Giovanni Primary Care Provider UnaEverton Irizarry Unavailable [phone] Allergies Allergen (clinical drug ingredient) Drug/Non Drug [...] Problem Status W/U Status Risk Notes Problem 90842514 Rectal bleeding (K62.5) Active confirmed Problem 133267984 Encounter for screening for malignant neoplasm of colon (Z12.11) Active confirmed Problem Diverticular disease of colon (778434490) Diverticulosis of large intestine without perforation or abscess without bleeding (K57.30) Active confirmed Problem Screening for malignant neoplasm of rectum (426954824) Encounter for screening for malignant neoplasm of rectum (Z12.12) Active confirmed Problem 22179239 Preprocedural examination (Z01.818) Active confirmed Problem 34761354 Constipation, unspecified constipation type (K59.00) Active confirmed Plan Of Treatment Future Test Test Name Order Date COLONOSCOPY 02/07/2016 COLONOSCOPY 12/06/2022 Insurance Providers Payer Name Payer Address Payer Phone Subscriber Number Group Number Insured Name Patient Relationship to Insured Coverage Start Date Coverage End Date MEDICARE OF [place] [address] [place] [address] [id number] JOAN HUGGINS Self - patient is the insured [employer] ATT[employer] CLAIMS [address] [place] [address] [id number] JOAN HUGGINS Self - patient is the insured Medical (General) History Medical History History ICD Code Colonoscopy 08-31-2005--hyper plastic polyps, diverticulosis, internal hemorrhoids Pilonidal cyst Denies SD,CVA,renal disease Hypertension Hyperlipidemia Hypothyroidism NIDDM COPD Osteopenia Vitamin D deficiency Obesity Thyroid cancer 1978-Papillary cancer Endometrial adenocarcinoma of uterus Sleep apnea--uses CPAP Surgical History Surgery Date(Month/Year) Subtotal thyroidectomy in 1978 for cance r Tubal ligation [address] [facility] 2013
== END 2024-10-12 11:03 | disposition home or self-care (01) ==
LOC: HO.HMCH 10:08
PROVIDERS: PCP Internal Medicine; Visit Provider Internal Medicine
DX: Z00.00 Encounter for general adult medical examination without abnormal findings (principal); E11.9 Type 2 diabetes mellitus without complications; J44.9 Chronic obstructive pulmonary disease, unspecified; E66.9 Obesity, unspecified; Z68.36 Body mass index [BMI] 36.0-36.9, adult; I10 Essential (primary) hypertension; E78.00 Pure hypercholesterolemia, unspecified; G47.33 Obstructive sleep apnea (adult) (pediatric); M85.89 Other specified disorders of bone density and structure, multiple sites; E55.9 Vitamin D deficiency, unspecified; E89.0 Postprocedural hypothyroidism; Z85.850 Personal history of malignant neoplasm of thyroid

== ENCOUNTER → 2024-10-12 10:07 | Outpatient (BNVA) | payer MEDICARE, SELFPAY | PROVIDERS: PCP Internal Medicine; Visit Provider Internal Medicine | DX: Z00.00 Encounter for general adult medical examination without abnormal findings (principal); I10 Essential (primary) hypertension; E11.9 Type 2 diabetes mellitus without complications; E78.00 Pure hypercholesterolemia, unspecified; J44.9 Chronic obstructive pulmonary disease, unspecified; G47.33 Obstructive sleep apnea (adult) (pediatric); M85.89 Other specified disorders of bone density and structure, multiple sites; E55.9 Vitamin D deficiency, unspecified; E89.0 Postprocedural hypothyroidism; M17.12 Unilateral primary osteoarthritis, left knee; E66.9 Obesity, unspecified; Z85.850 Personal history of malignant neoplasm of thyroid | CPT/HCPCS: 96127; 99212 ==

== ENCOUNTER 2024-12-02 12:54 | Outpatient (REF) | payer MEDICARE, SELFPAY ==
--- OUTSIDE RECORDS SUMMARY | 2023-07-01 13:10 | XMS_ITS | Encounter Summary ---
Author Organization [facility] Address [address] [facility] [address] [place] [address] Phone Care Team Providers Care Pacu Rn Name Role Phone Giovanni Burnette MD Primary Care Provider [phone] [phone] Encounter Details Date Type Department Care Team (Late st Contact Info) Description 07/01/2023 1:10 PM EDT Hospital Encounter [facility] [address] [place] [address] Julissa Silver, INSPECTOR AND MENDER [address] [place] [address] [email or web address] Social History Tobacco Use Types Packs/Day Years [...] clinician's provided indication for this examination in [facility]: S/P Fall; ? fx COMPARISON: None FINDINGS: Left Knee: No fracture. Normal alignment. Moderate degenerative joint disease. Procedure Note Joby Danielson MD, SOFYA - 07/01/2023 XR KNEE 4 OR MORE VIEWS (LEFT) Referring clinician's provided indication for this examination in [facility]:S/P Fall; ? fx COMPARISON: None FINDINGS: Left Knee: No fracture. Normal alignment. Moderate degenerative jointdisease. IMPRESSION: No fracture or dislocation. Julissa B Nadeem INSPECTOR AND MENDER IMG XR LOWER EXTREMITY Evangelina l Result documented in this encounter Visit Diagnoses Not on filedocumented in this encounter Care Teams Pacu Rn Relationship Specialty Start Date End Date Giovanni Burnette MD [address] [place] [address] [place] [address] PCP - General Internal Medicine 03/15/20 documented as of this encounter Additional Source Comments The information contained in this document represents components of the legal health record. It is not the complete legal health record.[facility]
--- OUTSIDE RECORDS SUMMARY | 2024-12-02 14:09 | XMS_ITS | Encounter Summary ---
Author Organization [facility] Address [address] [place] [address] Phone Care Team Providers Care Manager Branch Name Role Phone Giovanni Burnette MD Primary Care Provider [phone] [phone] Encounter Details Date Type Department Care Team (Late st Contact Info) Description 03/15/2020 Transcribe Orders Virtual Department [address] [place] [address] Giovanni Burnette MD [address] [place] [address] [place] [address] Encounter for screening laboratory testing for COVID-19 virus (Primary Dx) Social History Tobacco Use Types Packs/Day Years Used Date Smoking Tobacco: Never Assessed Comments Unknown Sex and Gender Information Value Date Recorded Sex Assigned at Not on file Legal Sex Female 2:12 PM EST Gender Identity Not on file Sexual Orientation Not on file documented as of this encounter Plan of Treatment Not on file documented as of this encounter Results * COVID-19 PCR Order (03/15/2020 3:12 PM EST) COVID Testing Status Specimen received in analyzing lab. [facility] Symptomatic? NO [facility] Other 03/15/2020 3:12 PM EST 03/15/2020 5:24 PM EST us Giovanni Burnette MD BODY FLUIDS AND STOOLS OR DERABLES Final Result [facility] [address] [place] [address] [facility] [address] [place] [address], [place] [address] documented in this encounter Visit Diagnoses Diagnosis Encounter for screening laboratory testing for COVID-19 virus- Primary documented in this encounter Care Teams Manager Branch Relationship Specialty Start Date End Date Giovanni Burnette MD [address] [place] [address] Dr [place] [address] PCP - General Internal Medicine 03/15/20 documented as of this encounter Additional Source Comments The information contained in this document represents components of the legal health record. It is not the complete legal health record.[facility]
--- OUTSIDE RECORDS SUMMARY | 2024-12-02 14:09 | XMS_ITS | Clinical Summary ---
Author Organization [facility] Address [address] [place] [phone] Phone Care Team Providers Care Net Repairer Name Role Phone Giovanni Burnette MD Primary Care Provider [phone] Allergies Active Allergy Reactions Criticality Noted Date Comments Codeine Nausea and/or Vomiting 07/01/2023 Morphine Nausea and/or Vomiting 07/01/2023 Oxycodone Nausea and/or Vomiting 07/01/2023 Medications amLODIPine (NORVASC) 10 MG tablet Take 1 tablet by mouth every morning. 05/17/19 24 Active FREESTYLE LITE Strp strips USE DIRECTED ONCE A DAY 06/08/19 24 Active TRULICITY 1.5 mg/0.5 mL subcutaneous injection INJECT 0.5 ML (1.5 MG) SUBCUTANEOUSLY ONE TIME PER WEEK 03/28/19 24 Active latanoprost (XALATAN) 0.005 % ophthalmic solution INSTILL 1 DROP IN BOTH EYES AT BEDTIME 90 DAY SUPPLY 06/23/19 24 Active levothyroxine (SYNTHROID, LEVOTHROID) 112 MCG tablet Take 1 tablet by mouth every morning. 06/18/19 24 Active lisinopril (PRINIVIL,ZESTRI L) 40 MG tablet Take 1 tablet by mouth every morning. 05/27/19 24 Active metFORMIN (GLUCOPHAGE-XR) 500 MG 24 hr tablet TAKE 2 TABLETS ORALLY 2 TIMES A DAY FOR 90 DAYS 05/22/19 24 Active simvastatin (ZOCOR) 5 MG tablet Take 5 mg by mouth nightly at bedtime. 05/28/19 24 Active INCRUSE ELLIPTA 62.5 mcg/actuation inhalation Inhale 1 puff into the lungs daily. 05/21/19 Active Active Problems No known active problems Immunizations Immunization Administration Dates Next Due INFLUENZA, SPLIT VIRUS, TRIV ALENT W/ PRESERVATIVE IM 02/07/2015,01/26/2015 Influenza High-Dose Quadriva lent Preservative Free IM 11/27/2021 Influenza High-Dose Trivalen t Preservative Free IM 12/23/2017,01/28/2017,12/26/2015 Influenza Quadrivalent Adjuv anted Preservative Free IM 12/13/2022,11/28/2020,12/06/2019 Influenza Trivalent Adjuvant ed Preservative free IM 12/02/2018 Pneumococcal polysaccharide PPSV23 12/16/2013 RSV Vaccine (monovalent, adjuvanted) 02/10/2023 Tdap 12/25/2021 Zoster live 07/20/2016 Zoster recombinant 07/17/2021,03/28/2021 Social History Tobacco Use Types Packs/Day Years [...] on file Sexual Orientation Not on file Last Filed Vital Signs Vital Sign Reading Time Taken Comments Blood Pressure 146/71 07/01/2023 12:55 PM EDT Pulse 66 07/01/2023 12:55 PM EDT Temperature 36.7 C (98.1 F) 07/01/2023 12:55 PM EDT Respiratory Rate 18 07/01/2023 12:55 PM EDT Oxygen Saturation 100% 07/01/2023 12:55 PM EDT Inhaled Oxygen Concentration - - Weight - - Height - - Body Mass Index - - Plan of Treatment Health Maintenance Due Date Last Done Comments CREATININE LEVEL 1949 LIPID PANEL 1949 POTASSIUM LEVEL 1949 TSH LEVEL 1949 DEPRESSION SCREENING 1961 HEPATITIS C SCREENING 1967 COLOGUARD 1994 COLONOSCOPY 1994 COLORECTAL CANCER SCREENING 1994 FIT TEST 1994 FOBT 1994 SIGMOIDOSCOPY 1994 VIRTUAL COLONOSCOPY 1994 OSTEOPOROSIS SCREENING INITIAL (ONE-TIME) 2014 PNEUMOCOCCAL VACCINES (50+ years) (2 of 2 - PCV) 12/16/2014 12/16/2013 INFLUENZA VACCINE (#1) 2024 , 11/27/2021, 11/28/2020, Additional history exists COVID-19 VACCINE ( season) 2024 12/13/2022, 07/16/2022, 12/30/2021, Additional history exists Adult Td,Tdap Booster 12/26/2031 12/25/2021 ZOSTER VACCINES Completed 07/17/2021, 03/05, 07/20/2016 RSV VACCINE Completed 02/10/2023 SMOKING STATUS SCREENING (Once After 26 Yrs) Completed 07/01/2023 HEPATITIS A VACCINES Aged Out No long er eligible based on patient's age to complete this topic HIB VACCINES Aged Out No longer eligi ble based on patient's age to complete this topic MENINGOCOCCAL VACCINES (ACWY) Aged Out No longer eligible based on patient's age to complete this topic MENINGOCOCCAL VACCINES (B) Aged Out N o longer eligible based on patient's age to complete this topic Medical Devices Not on file Insurance BLUE [employer]OSS MEDEX SUPPLEMENT MEDICARE PART A & B [employer] MEDEX SUPPLEMENT MEDICARE PART A & B MEDICARE PART A & B [employer] MEDEX SUPPLEMENT MEDICARE PART A & B [employer] CROSS MEDEX SUPPLEMENT MEDICARE PART A & B [employer] CROSS MEDEX SUPPLEMENT MEDICARE PART A & B [employer] CROSS MEDEX SUPPLEMENT MEDICARE PART A & B [employer] MEDEX SUPPLEMENT MEDICARE PART A & B [employer] MEDEX SUPPLEMENT MEDICARE PART A & B Care Teams Net Repairer Relationship Specialty Start Date End Date Giovanni Burnette MD [address] [place] [address] Dr Aguilar [facility] [place] [address] PCP - General Internal Medicine 03/15/20 Additional Source Comments The information contained in this document represents components of the legal health record. It is not the complete legal health record.[facility]
== END 2024-12-02 12:55 | disposition home or self-care (01) ==
LOC: HO.MAMMO 12:54
PROVIDERS: PCP Internal Medicine; Visit Provider Internal Medicine
DX: Z12.31 Encounter for screening mammogram for malignant neoplasm of breast (principal)
CPT/HCPCS: 77063; 77067

== ENCOUNTER → 2024-12-02 13:00 | Outpatient (BNV) | payer MEDICARE, SELFPAY | PROVIDERS: PCP Internal Medicine; Visit Provider Internal Medicine | DX: Z12.31 Encounter for screening mammogram for malignant neoplasm of breast (principal) | CPT/HCPCS: 77063; 77067 ==

== ENCOUNTER 2024-12-28 08:59 | Outpatient (REF) | payer MEDICARE, SELFPAY ==
--- OUTSIDE RECORDS SUMMARY | 2023-07-01 13:10 | XMS_ITS | Encounter Summary ---
Author Organization [facility] Address [address] [facility] [address] [place] [address] Phone Care Team Providers Care Infection Prevention Coordinator Name Role Phone Giovanni Burnette MD Primary Care Provider [phone] [phone] Encounter Details Date Type Department Care Team (Late st Contact Info) Description 07/01/2023 1:10 PM EDT Hospital Encounter [facility] [address] [place] [phone] Julissa Silver, TURFGRASS TECHNICIAN [address] [place] [address] [email or web address] Social History Tobacco Use Types Packs/Day [...] clinician's provided indication for this examination in [facility]: S/P Fall; ? fx COMPARISON: None FINDINGS: Left Knee: No fracture. Normal alignment. Moderate degenerative joint disease. Procedure Note Joby Danielson MD, SOFYA - 07/01/2023 XR KNEE 4 OR MORE VIEWS (LEFT) Referring clinician's provided indication for this examination in [facility]:S/P Fall; ? fx COMPARISON: None FINDINGS: Left Knee: No fracture. Normal alignment. Moderate degenerative jointdisease. IMPRESSION: No fracture or dislocation. Julissa B Nadeem TURFGRASS TECHNICIAN IMG XR LOWER EXTREMITY Evangelina l Result documented in this encounter Visit Diagnoses Not on filedocumented in this encounter Care Teams Infection Prevention Coordinator Relationship Specialty Start Date End Date Giovanni Burnette MD [address] [place] [address] [place] [address] PCP - General Internal Medicine 03/15/20 documented as of this encounter Additional Source Comments The information contained in this document represents components of the legal health record. It is not the complete legal health record.[facility]
--- OUTSIDE RECORDS SUMMARY | 2024-12-28 09:43 | XMS_ITS | Encounter Summary ---
Author Organization [facility] Address [address] [place] [address] Phone Care Team Providers Care Pewter Fabricator Name Role Phone Giovanni Burnette MD Primary Care Provider [phone] [phone] Encounter Details Date Type Department Care Team (Late st Contact Info) Description 03/15/2020 Transcribe Orders Virtual Department [address] [place] [address] Giovanni Burnette MD [address] [place] [address] [place] [address] Encounter for screening laboratory testing for COVID-19 [...] Testing Status Specimen received in analyzing lab. [facility] Symptomatic? NO [facility] Other 03/15/2020 3:12 PM EST 03/15/2020 5:24 PM EST us Giovanni Burnette MD BODY FLUIDS AND STOOLS OR DERABLES Final Result [facility] [address] [place] [address] [facility] [address] [place] [address], [place] [address] documented in this encounter Visit Diagnoses Diagnosis Encounter for screening laboratory testing for COVID-19 virus- Primary documented in this encounter Care Teams Pewter Fabricator Relationship Specialty Start Date End Date Giovanni Burnette MD [address] [place] [address] Dr [place] [address] PCP - General Internal Medicine 03/15/20 documented as of this encounter Additional Source Comments The information contained in this document represents components of the legal health record. It is not the complete legal health record.[facility]
--- OUTSIDE RECORDS SUMMARY | 2024-12-28 09:43 | XMS_ITS | Patient Health Record ---
Author Organization [facility] Address [address] [place] [address] Care Team Providers Care Apprentice Painter Hand Name Role Phone Lloyd Burnette MDneth Primary Care Provider Unava Everton Keyes Unavailable [phone] Allergies Allergen (clinical drug ingredient) Drug/Non Drug Allergy documented on EMR Reaction Allergy Type Onset Date Status oxycodone OxyContin Unknown Drug Allergy Active meperidine Demerol nausea and vomiting Drug Allergy Active codeine Codeine Sulfate Unknown Drug Allergy A ctive Reason For Referral No Information Medications Medication SIG (Take, Route, Frequency, Duration) Notes Start Date End Date Status Trulicity 1.5 MG/0.5ML Subcutaneous; Duration: 28 She takes this on Sundays Active amLODIPine Besylate 10 MG 1 tablet Orally Once a day Active Levothyroxine Sodium 112 MCG Oral; Duration: 90 Active Vitamin D Active metFORMIN HCl ER 500 MG 2 tablet with evening meal orally twice a day Active Lisinopril 40 MG 1 tablet Orally Once a day Active Simvastatin 5 MG 1 tablet in the evening Orally Once a day Active Colace 100 MG 1 capsule as needed Orally Once a day; Duration: 30 day(s) Active Vitamin B Complex - as directed Orally Active Immunizations Vaccine Route Administration Date Status Comme nts Influenza Unknown 12/26/2015 Administered Problems Problem Type SNOMED Code ICD Code Onset Dates Problem Status W/U Status Risk Notes Problem Rectal bleeding (55367273) Rectal bleeding (K62.5) Active confirmed Problem Screening for malignant neoplasm of colon (281536884) Encounter for screening for malignant neoplasm of colon (Z12.11) Active confirmed Problem Diverticular disease of colon (402590643) Diverticulosis of large intestine without perforation or abscess without bleeding (K57.30) Active confirmed Problem Screening for malignant neoplasm of rectum (968914596) Encounter for screening for malignant neoplasm of rectum (Z12.12) Active confirmed Problem Preprocedural examination (823196498051486) Preprocedural examination (Z01.818) Active confirmed Problem Constipation (52337613) Constipation, unspecified constipation type (K59.00) Active confirmed Plan Of Treatment Future Test Test Name Order Date COLONOSCOPY 02/07/2016 COLONOSCOPY 12/06/2022 Insurance Providers Payer Name Payer Address Payer Phone Subscriber Number Group Number Insured Name Patient Relationship to Insured Coverage Start Date Coverage End Date MEDICARE OF [place] [address] [place] [address] [id number] JOAN HUGGINS Self - patient is the insured MEDEX ATTN CLAIMS [address] [place] [address] [id number] JOAN HUGGINS Self - patient is the insured Medical (General) History Medical History History ICD Code Colonoscopy 08-31-2005--hyper plastic polyps, diverticulosis, internal hemorrhoids Pilonidal cyst Denies MD,CVA,renal disease Hypertension Hyperlipidemia Hypothyroidism NIDDM COPD Osteopenia Vitamin D deficiency Obesity Thyroid cancer 1978-Papillary cancer Endometrial adenocarcinoma of uterus Sleep apnea--uses CPAP Surgical History Surgery Date(Month/Year) Subtotal thyroidectomy in 1978 for cance r Tubal ligation 1 [facility] 2013
--- OUTSIDE RECORDS SUMMARY | 2024-12-28 09:43 | XMS_ITS | Clinical Summary ---
Author Organization [facility] Address [address] [place] [phone] Phone Care Team Providers Care Maintenance Technician 2Nd Shift Name Role Phone Giovanni Burnette MD Primary Care Provider [phone] [phone] Allergies Active Allergy Reactions Criticality Noted Date [...] MEDEX SUPPLEMENT MEDICARE PART A & B [employer] MEDEX SUPPLEMENT MEDICARE PART A & B MEDICARE PART A & B [employer] MEDEX SUPPLEMENT MEDICARE PART A & B [employer] CROSS MEDEX SUPPLEMENT MEDICARE PART A & B [employer] CROSS MEDEX SUPPLEMENT MEDICARE PART A & B [employer] CROSS MEDEX SUPPLEMENT MEDICARE PART A & B [employer] MEDEX SUPPLEMENT MEDICARE PART A & B [employer] MEDEX SUPPLEMENT MEDICARE PART A & B Care Teams Maintenance Technician 2Nd Shift Relationship Specialty Start Date End Date Giovanni Burnette MD [address] [place] [address] Dr Aguilar [facility] [place] [address] PCP - General Internal Medicine 03/15/20 Additional Source Comments The information contained in this document represents components of the legal health record. It is not the complete legal health record.[facility]
[2024-12-28 11:07] LABS: Anion Gap 11 (12-20); Blood Urea Nitrogen 17 mg/dL (9-16); Calcium 9.5 mg/dL (8.4-10.2); Carbon Dioxide 24 mmol/L (22-29); Chloride 109 mmol/L (96-108); Estimated Glomerular Filt Rate > 60; Potassium 4.1 mmol/L (3.3-5.1); Sodium 140 mmol/L (135-145)
[2024-12-28 11:14] LABS: Free T4 (Free Thyroxine) 1.44 ng/dL (0.71-1.85); Thyroid Stimulating Hormone 0.42 uIU/mL (0.32-4.0)
== END 2024-12-28 09:00 | disposition home or self-care (01) ==
LOC: HO.10HDL 08:59
PROVIDERS: Visit Provider Internal Medicine
DX: E11.65 Type 2 diabetes mellitus with hyperglycemia (principal); E03.9 Hypothyroidism, unspecified
CPT/HCPCS: 36415; 80048; 83036; 84439; 84443

== ENCOUNTER 2025-02-11 08:50 | Outpatient (REF) | payer MEDICARE, SELFPAY ==
[2025-02-11 09:05] LABS: MANUAL DIFF FLAG NO
[2025-02-11 09:30] LABS: Hematocrit 38.6 % (37.0-47.0); Hemoglobin 12.6 g/dl (12.0-16.0); Imm Gran Abs Auto 0.03 X10*3/uL (0.00-0.03); Imm Gran Pct Auto 0.3 % (0.0-0.4); Lymphocytes Absolute Auto 2.5 X10*3/uL (1.2-4.9); Mean Corpuscular HGB Conc 32.6 g/dl (31.0-35.0); Mean Corpuscular Hemoglobin 27.6 pg (27.0-33.0); Mean Corpuscular Volume 84.6 fL (80.0-98.0); NRBC Abs Auto 0.000 X10*3/uL (0.0-0.012); NRBC Pct Auto 0.0 /100WBC (0.0-0.2); Platelet Count 336 X10*3/uL (160-400); Red Blood Count 4.56 X10*6/uL (4.20-5.50); White Blood Count 9.9 X10*3/uL (4.8-10.8)
[2025-02-11 10:14] LABS: Alanine Aminotransferase 17 U/L (0-31); Albumin Level 4.3 g/dL (3.5-5.0); Alkaline Phosphatase 64 U/L (39-117); Anion Gap 7 (12-20); Aspartate Amino Transferase 17 U/L (5-31); Blood Urea Nitrogen 19 mg/dL (9-16); Calcium 9.6 mg/dL (8.4-10.2); Carbon Dioxide 27 mmol/L (22-29); Chloride 109 mmol/L (96-108); Cholesterol 121 mg/dL (<200); Estimated Glomerular Filt Rate > 60; HDL Cholesterol 44 mg/dL (>40); Potassium 4.3 mmol/L (3.3-5.1); Sodium 139 mmol/L (135-145); Total Protein 6.6 g/dL (6.5-8.0); Triglycerides 55 mg/dL (<150)
[2025-02-11 10:21] LABS: Free T4 (Free Thyroxine) 1.50 ng/dL (0.71-1.85); Thyroid Stimulating Hormone 0.46 uIU/mL (0.32-4.0)
[2025-02-11 10:27] LABS: Appearance Urine Clear; Glucose Urine UA Negative (Negative); PH 7.0 (5.0-9.0); Specific Gravity - Urine 1.025 (1.005-1.025)
[2025-02-11 11:12] LABS: Microalbum/Creatinine Ratio Ur 10.5 ug/mg cr (<30)
== END 2025-02-11 08:51 ==
LOC: HO.LAB 08:50
PROVIDERS: PCP Internal Medicine; Visit Provider Internal Medicine
DX: E11.9 Type 2 diabetes mellitus without complications (principal); E03.9 Hypothyroidism, unspecified; E78.00 Pure hypercholesterolemia, unspecified; E55.9 Vitamin D deficiency, unspecified; D64.9 Anemia, unspecified; R30.0 Dysuria
CPT/HCPCS: 36415; 80053; 80061; 81003; 82043; 82306; 82570; 83036; 84439; 84443; 85025

== ENCOUNTER 2025-02-17 08:55 | Outpatient (AMB) | payer MEDICARE, SELFPAY ==
--- OUTSIDE RECORDS SUMMARY | 2023-07-01 12:10 | XMS_ITS | Encounter Summary ---
Author Organization [facility] Address [address] [facility] [address] [place] [address] Phone Care Team Providers Care Forensic Audit Expert Name Role Phone Giovanni Burnette MD Primary Care Provider [phone] [phone] Encounter Details Date Type Department Care Team (Late st Contact Info) Description 07/01/2023 1:10 PM EDT Hospital Encounter [facility] [address] [place] [address] [phone] Julissa Silver, ASSET COORDINATOR [address] [place] [address] [email or web address] Social History Tobacco Use Types Packs/Day Years Used Date Smoking Tobacco: Never Smokeless Tobacco: Never Education Answer Date Recorded Are you interested in more education? Not on iván e 06/29/2022 Are you concerned about learning? Not on file 06/29/2022 No 06/29/2022 No 06/29/2022 Digital Access Answer Date Recorded No 07/31/2022 No 07/31/2022 Reliable internet access at home? Not on file 07/31/2022 Device with a working camera? Not on file Comments Unknown Sex and Gender Information Value Date Recorded Sex Assigned at Not on file Legal Sex Female 2:12 PM EST Gender Identity Not on file Sexual Orientation Not on file documented as of this encounter Plan of Treatment Not on file documented as of this encounter Procedures Procedure Name Priority Date/Time Associated Diagnosis Comments XR KNEE 4 OR MORE VIEWS (LEFT) Urgent/patient waiting 07/01/2023 1:17 PM EDT Acute pain of left knee documented in this encounter Results * XR KNEE 4 OR MORE VIEWS (LEFT) (07/01/2023 1:17 PM EDT) Anatomical Region Laterality Modality Knee Left Computed Radiogr aphy 07/01/2023 1:36 PM EDT Impressions 07/01/2023 1:37 PM EDT No fracture or dislocation. Narrative 07/01/2023 1:37 PM EDT XR KNEE 4 OR MORE VIEWS (LEFT) Referring clinician's provided indication for this examination in [facility]: S/P Fall; ? fx COMPARISON: None FINDINGS: Left Knee: No fracture. Normal alignment. Moderate degenerative joint disease. Procedure Note Joby Danielson MD, SOFYA - 07/01/2023 XR KNEE 4 OR MORE VIEWS (LEFT) Referring clinician's provided indication for this examination in [facility]:S/P Fall; ? fx COMPARISON: None FINDINGS: Left Knee: No fracture. Normal alignment. Moderate degenerative jointdisease. IMPRESSION: No fracture or dislocation. Julissa B Nadeem ASSET COORDINATOR IMG XR LOWER EXTREMITY Evangelina l Result documented in this encounter Visit Diagnoses Not on filedocumented in this encounter Care Teams Forensic Audit Expert Relationship Specialty Start Date End Date Giovanni Burnette MD [address] [place] [address] Dr [place] [address] PCP - General Internal Medicine 03/15/20 documented as of this encounter Additional Source Comments The information contained in this document represents components of the legal health record. It is not the complete legal health record.[facility]
--- NOTE | 2025-02-17 09:00 | MHC.PC.OV ---
Vital Signs 02/17/25 09:01 Height 5 ft 1 in Weight 187 lb 6 oz BMI 35.4 BP 122/68 Blood Pressure Location Lt brachial Position Sitting Pulse 75 Pulse Source Pulse Oximeter Temp 97.3 F Temp Source Temporal Artery Scan Pulse Oximetry (%) 98 Oxygen Delivery Method Room Air Intake Visit Reasons: DM, HTN, hyperlipidemia, COPD, HANSEL Intake Note: Patient is here to follow up on DM, HTN, HLD, COPD, HANSEL. Desk Sergeant Required: No Design Drafter: Not Required per policy Accompanied by: Self / Same As Patient Allergies codeine (CODEINE) Allergy (Unknown, Verified 02/17/25 09:21) NAUSEA & VOMITING morphine Allergy (Unknown, Verified 02/17/25 09:21) UNKNOWN oxycodone (OxyContin) Allergy (Unknown, Verified 02/17/25 09:21) UNKNOWN Medication List - Last Reconciled 02/17/25 by Giovanni Burnette MD acetaminophen (Tylenol Extra Strength) 1,000 mg PO QID PRN amlodipine 10 mg PO DAILY 90 days blood sugar diagnostic (FreeStyle Lite Strips) As directed once a day blood-glucose meter (FreeStyle Lite Meter kit) As directed cholecalciferol (vitamin D3) 50 mcg PO DAILY 90 days clobetasol 0.05% 1 appl topical BID glucosamine sulfate (Glucosamine) 500 mg PO BID lancets As directed latanoprost 0.005% 1 drp ophthalmic (eye) BEDTIME levothyroxine 112 mcg PO DAILY 90 days lisinopril 40 mg PO DAILY magnesium gluconate 27.5 mg PO BID metformin ER 1,000 mg (2 x 500 mg) PO BID 90 days semaglutide (Ozempic) 1 mg (0.75 mL) subcut QWEEK 4 weeks simvastatin 5 mg PO QPM umeclidinium 62.5 mcg/actuation (Incruse Ellipta) 1 inh inhalation DAILY vitamin B comp and C no.3 (B Complex Plus Vitamin C) 1 cap PO DAILY Tobacco use date assessed: 02/17/25 Fall risk assessment: No Falls in past year Last assessed Fall Risk: 02/17/25 Dental Screening Dental Screen Date: 06/24/24 HPI DM, HTN, hyperlipidemia, COPD, HANSEL HPI Details Patient comes in today for her follow up visit States that she feels okay She denies any headaches or dizziness Denies any chest pains, no increased SOB No nausea/vomiting, no abdominal pain No change in bowel habits noted She had her follow up labs done last week - to discuss her results [facility] Medical History Primary osteoarthritis of left knee Basal cell carcinoma of scalp Tick bite of back Post-surgical hypothyroidism Obesity (BMI 30-39.9) Dermatitis History of thyroid cancer History of endometrial cancer Vitamin D deficiency Osteopenia Obstructive sleep apnea COPD (chronic obstructive pulmonary disease) Pure hypercholesterolemia Benign essential hypertension Diabetes mellitus Chronic obstructive pulmonary disease, unspecified Other and unspecified hyperlipidemia Type 2 diabetes mellitus with unspecified complications Essential hypertension Precordial chest pain Surgical History Hx of tubal ligation History of colonoscopy History of thyroidectomy History of hysterectomy History of section Family History Father No problems noted. Mother No problems noted. Social History Housing: House Alcohol intake: current Alcohol intake frequency: holidays/special occasions only Patient Tobacco Use Status: Never used Tobacco e-Cigarette/Vaping Use: Never Used Second Hand Smoke Exposure: No service: No Current occupational status: retired Cognitive needs: No Hearing needs: No Vision needs: No Questionnaire PHQ-9 Over the last 2 weeks, how often have you been bothered by any of the following problems? 1. Little interest or pleasure in doing things: not at all 2. Feeling down, depressed, or hopeless: not at all 3. Trouble falling or staying asleep, or sleeping too much: nearly every day 4. Feeling tired or having little energy: more than half the days 5. Poor appetite or overeating: not at all 6. Feeling bad about yourself - or that you are a failure or have let yourself or your family down: not at all 7. Trouble concentrating on things, such as reading the newspaper or watching television: not at all 8. Moving or speaking so slowly that other people could have noticed. Or the opposite - being so fidgety or restless that you have been moving around a lot more than usual: not at all 9. Thoughts that you would be better off or of hurting yourself in some way: not at all Total score: 5 Depression Screening Interpretation: Positive Depression Screening Follow-up: Follow-up Visit Requested Depression Screening Done: Yes 95919 - PHQ-9 Billing: Yes Source: Developed by Drs. Everton Ghosh, Sumaya Becerra, Umang Ruano and colleagues, with an educational annette from [employer]. Thrive Questionnaire Date Thrive assessed: 10/12/24 I am a: Patient What is your living situation today?: I have a steady place to live Within the past 12 months, did the food you bought not last and you didn't have the money to get more?: Never true Within the past 12 months, did you worry whether your food would run out before you got money to buy more?: Never true Do you have trouble paying for medicines?: No Do you have trouble getting transportation to medical appointments?: No Do you have trouble paying your heating and electricity bill?: No Do you have trouble taking care of your child, family member or friend?: No Do you have trouble with day-to-day activities such as bathing, preparing meals, shopping, managing finances, etc.?: No Are you currently unemployed and looking for a job?: No Are you interested in more education?: No Please select the resources that you would like help with: None Currently or been in a relationship where the following occur: No concerns reported THRIVE Score: 0 AUDIT C Alcohol Use Questionnaire (AUDIT-C) 1. How often do you have a drink containing alcohol?: Monthly or less 2. How many drinks containing alcohol do you have on a typical day when you are drinking?: 1 or 2 Total Score: 1 RAVINDER-7 AMB Questionnaire RAVINDER-7 Date RAVINDER - 7 assessed: 02/17/25 Feeling nervous, anxious, or on edge: 0 = Not at all Not being able to stop or control worryin = Not at all Worrying too much about different things: 2 = More than half the days Trouble relaxin = Not at all Being so restless that it is hard to sit still: 0 = Not at all Becoming easily annoyed or irritable: 0 = Not at all Feeling afraid as if something awful might happen: 0 = Not at all Total RAVINDER-7 score (0-4 normal; 5-9 mild; 10-14 moderate; 15-21 severe): 2 Source: Developed by Drs. Everton Ghosh, Sumaya Becerra, Umang Ruano and colleagues, with an educational annette from [employer]. Review of Systems Const Denies chills, Denies fatigue, Denies fever(s) and Denies headache(s) ENT Denies dysphagia, Denies dizziness, Denies otalgia, Denies headache(s), Denies neck pain, Denies odynophagia and Denies sore throat Card Denies chest pain, Denies palpitations and Denies dyspnea Resp Denies chest congestion, Denies cough and Denies dyspnea GI Denies abdominal pain, Denies hematochezia, Reports constipation (at times), Denies dysphagia, Denies heartburn, Denies diarrhea, Denies nausea, Denies odynophagia and Denies vomiting Denies difficulty voiding, Denies nocturia, Denies dysuria and Denies urinary urgency Musc Denies back pain, Reports arthralgias (over the left knee and left leg), Denies joint swelling and Denies neck pain Skin/Breast Denies rash Neuro Denies dizziness and Denies headache(s) Endo Denies fatigue and Denies palpitations Physical exam (Primary Care) Vital Signs: Last Vital Signs Temp 97.3 F 02/17/25 09:01 Pulse 75 02/17/25 09:01 BP 122/68 02/17/25 09:01 Pulse Ox 98 02/17/25 09:01 Oxygen Delivery Method Room Air 02/17/25 09:01 BMI result Body Mass Index 35.4 Tobacco/Smoking Status: Tobacco use Status Tobacco use date assessed 02/17/25 02/17/25 09:07 Patient Tobacco Use Status Never used Tobacco 02/17/25 09:07 e-Cigarette/Vaping Use Never Used 02/17/25 09:07 PHQ-9: PHQ-9 Score PHQ-9: Total score 5 02/17/25 09:07 Depression Screening Interpretation: Positive Depression Screening Follow-up: Follow-up Visit Requested Thrive Assessment: Date of Thrive Assessment Date Thrive assessed 10/12/24 02/17/25 09:07 Currently or been in a relationship where the following occur: No concerns reported Const General: no acute distress and alert HENMT Ears: TM's normal bilaterally and EAC's normal Throat: Yes posterior oropharynx normal and Yes tonsils normal (no TP congestion noted) Neck Neck: Yes supple and No lymphadenopathy Thyroid: Thyroid normal Resp Auscultation: clear to auscultation bilaterally, no rales and no wheezes Cardio Rate: regular rate Rhythm: regular rhythm Heart sounds: no murmurs GI Palpation (GI): Soft to palpation and nontender Auscultation: normal bowel sounds General: Yes no CVA tenderness Back/Spine/Pelvis Back: no CVA tenderness Thoracic/Lumbar Spine: No lumbar spinal tenderness Skin Rashes: no rashes Extrem General: Yes no clubbing, cyanosis or edema Left lower extremity: knee Details: tenderness; no swelling Results Reviewed Results Reviewed: Laboratory Tests 02/11/25 02/11/25 08:58 09:00 WBC 9.9 Hgb 12.6 Hct 38.6 Plt Count 336 Sodium 139 Potassium 4.3 Creatinine 0.58 Estimated GFR > 60 Fasting Glucose 126 H Hemoglobin A1c % 6.9 H Calcium 9.6 AST 17 ALT 17 Triglycerides 55 Cholesterol 121 LDL Cholesterol, Calc 66 HDL Cholesterol 44 25-OH Vitamin D Total 52.5 TSH 0.46 Free T4 1.50 Ur Specific [place] 1.025 Urine Protein Negative Urine Glucose (UA) Negative Urine Blood Negative Urine Nitrite Negative Ur Leukocyte Esterase Negative Microalb/Creat Ratio 10.5 Coding Level of Care Code Est Pt Level 4 (96925) Diagnoses Type 2 diabetes mellitus without complication, without long-term current use of insulin E11.9 Diabetes mellitus type: type 2 Diabetes mellitus fci insulin use: without termite control service representative use Diabetes mellitus complication status: without complication Benign essential hypertension I10 Pure hypercholesterolemia E78.00 Post-surgical hypothyroidism E89.0 History of thyroid cancer Z85.850 Chronic obstructive pulmonary disease, unspecified COPD type J44.9 COPD type: unspecified COPD Obstructive sleep apnea G47.33 Osteopenia of multiple sites M85.89 Osteopenia location: multiple sites Vitamin D deficiency E55.9 Primary osteoarthritis of left knee M17.12 Obesity (BMI 30-39.9) E66.9 Additional Codes PHQ-9 - 78065 - PHQ-9 Billing: Yes ([id number]) Assessment & Plan Assessment & Plan (1) Diabetes mellitus: Code(s): E11.9 - Type 2 diabetes mellitus without complications Category: Medical Qualifiers: Diabetes mellitus type: type 2 Diabetes mellitus fci insulin use: without fci use Diabetes mellitus complication status: without complication Qualified Code(s): E11.9 - Type 2 diabetes mellitus without complications Plan: Her HgbA1c was at 6.9% on her labs done last week (was previously at 6.6% a few months ago) - goal is at least <7.0% but ideally <6.5% Reinforced diabetic diet Continue Metformin ER 1000 mg BID Will try switching her from Ozempic 1 mg SQ once a week to Mounjaro 5 mg SQ once a week to see if Mounjaro would work better as she does not seem to be doing as well as expected on Semaglutide Per request, will also refer her to a buckle coverer for further education and dietary counseling (2) Benign essential hypertension: Code(s): I10 - Essential (primary) hypertension Category: Medical Plan: Reinforced low sodium diet Continue Lisinopril 40 mg QD and Amlodipine 10 mg QD Patient is again reminded to continue monitoring her blood pressure regularly (3) Pure hypercholesterolemia: Code(s): E78.00 - Pure hypercholesterolemia, unspecified Category: Medical Plan: Results of her labs done last week reviewed and discussed with patient Reinforced low cholesterol diet Continue Simvastatin 5 mg QD Will recheck her labs and fasting lipids in 4 months for follow up (4) Post-surgical hypothyroidism: Code(s): E89.0 - Postprocedural hypothyroidism Category: Medical Plan: Her TFTs were again normal on her recent labs Continue Levothyroxine 112 mcg QD Follow up with endocrinology as scheduled (5) History of thyroid cancer: Comment: (+) papillary thyroid cancer back in the 70s Code(s): Z85.850 - Personal history of malignant neoplasm of thyroid Category: Medical Plan: Follow up with endocrinology as scheduled for continuing surveillance (6) Chronic obstructive pulmonary disease, unspecified: Code(s): J44.9 - Chronic obstructive pulmonary disease, unspecified Category: Medical Qualifiers: COPD type: unspecified COPD Qualified Code(s): J44.9 - Chronic obstructive pulmonary disease, unspecified Plan: Controlled Continue Incruse Ellipta 62.5 mcg 1 inhalation QD and Albuterol HFA 2 inhalations Q 6 hours PRN (7) Obstructive sleep apnea: Comment: uses cpap Code(s): G47.33 - Obstructive sleep apnea (adult) (pediatric) Category: Medical Plan: Continue using her CPAP device when sleeping at night daily - she has been doing well on AutoPAP with pressure settings at 8 to 12 cm H2O Follow up with Sleep Medicine as scheduled (8) Osteopenia: Code(s): M85.80 - Other specified disorders of bone density and structure, unspecified site Category: Medical Qualifiers: Osteopenia location: multiple sites Qualified Code(s): M85.89 - Other specified disorders of bone density and structure, multiple sites Plan: Her initial BMD done in 2015 revealed (+) findings of osteopenia Patient was treated with oral bisphosphonates for over 5 years and Rx was eventually discontinued back in 2019 Repeat BMD done on 06/15/21 revealed findings that were mostly unchanged from previous Her most recent BMD on 07/30/2024 revealed (+) osteopenia, with her BMD declining only slightly from previous in her lumbar spine and total left hip - her lowest T score is -2.0 in the lumbar spine She is again encouraged to continue with regular exercise and physical activity to help maintain her bone density (9) Vitamin D deficiency: Code(s): E55.9 - Vitamin D deficiency, unspecified Category: Medical Plan: Continue Vitamin D3 2000 units QD (10) Primary osteoarthritis of left knee: Code(s): M17.12 - Unilateral primary osteoarthritis, left knee Category: Medical Plan: X-rays of the left knee done back in October 2023 revealed (+) tricompartmental osteoarthritis with mild to moderate degenerative changes, most prominent in the medial compartment Follow up with orthopedics as scheduled (11) Obesity (BMI 30-39.9): Code(s): E66.9 - Obesity, unspecified Category: Medical Plan: Reinforced diet/exercise as tolerated/lose weight Plan Follow up in 4 months Orders: Orders Complete Blood Count Auto Diff 4 Months D64.9 - Anemia, unspecified Hemoglobin A1c 4 Months E11.9 - Type 2 diabetes mellitus without complications Free T4 (Free Thyroxine) 4 Months E03.9 - Hypothyroidism, unspecified Vitamin B12 and Folate 4 Months E53.8 - Deficiency of other specified B group vitamins Comprehensive [place]. Panel Fast 4 Months E78.00 - Pure hypercholesterolemia, unspecified Lipid Panel 4 Months E78.00 - Pure hypercholesterolemia, unspecified Microalbumin, Random (w Creat) 4 Months E11.9 - Type 2 diabetes mellitus without complications Thyroid Stimulating Hormone 4 Months E03.9 - Hypothyroidism, unspecified UA CC w/rflx Micro + Cult 4 Months R30.0 - Dysuria Vitamin D 25-OH Total 4 Months E55.9 - Vitamin D deficiency, unspecified Referrals Nutrition/Dietitian Referral E11.9 - Type 2 diabetes mellitus without complications Medications: New tirzepatide (Mounjaro) STOP Ozempic 5 mg (0.5 mL) subcut QWEEK 2 mL 0RF 4 weeks Discontinued semaglutide (Ozempic) Discontinued Reason: Doctor's Order 1 mg (0.75 mL) subcut QWEEK 4 weeks 3 mL 3RF
[2025-02-17 09:01] VITALS: BP 122/68; PULSE 75; TEMP 36.3; O2SAT 98; BMI 35.4
--- OUTSIDE RECORDS SUMMARY | 2025-02-17 09:36 | XMS_ITS | Encounter Summary ---
Author Organization [facility] Address [address] [place] [address] Phone Care Team Providers Care Leguillon Debeader Name Role Phone Giovanni Burnette MD Primary Care Provider [phone] Encounter Details Date Type Department Care Team (Late st Contact Info) Description 03/15/2020 Transcribe Orders Virtual Department [address] [place] [id number] Giovanni Burnette MD [address] [place] [address] [place] [address] Encounter for screening laboratory testing for COVID-19 [...] Testing Status Specimen received in analyzing lab. [facility] Symptomatic? NO [facility] Other 03/15/2020 3:12 PM EST 03/15/2020 5:24 PM EST us Giovanni Burnette MD LAB GENERAL ORDERABLES Fi nal Result [facility] [address] [place] [address] [facility] [address] [place] [address] documented in this encounter Visit Diagnoses Diagnosis Encounter for screening laboratory testing for COVID-19 virus- Primary documented in this encounter Care Teams Leguillon Debeader Relationship Specialty Start Date End Date Giovanni Burnette MD [address] [place] [address] Dr [address]as [address] [place] [address], [place] [address] PCP - General Internal Medicine 03/15/20 documented as of this encounter Additional Source Comments The information contained in this document represents components of the legal health record. It is not the complete legal health record.[facility]
--- OUTSIDE RECORDS SUMMARY | 2025-02-17 09:36 | XMS_ITS | Clinical Summary ---
Author Organization [facility] Address [address] [place] [address] Phone Care Team Providers Care Medical Instrument Technician Name Role Phone Giovanni Burnette MD Primary Care Provider [phone] Allergies Active Allergy Reactions Criticality Noted Date [...] MEDEX SUPPLEMENT MEDICARE PART A & B [employer] MEDEX SUPPLEMENT MEDICARE PART A & B MEDICARE PART A & B [place] [employer] MEDEX SUPPLEMENT MEDICARE PART A & B [employer] MEDEX SUPPLEMENT MEDICARE PART A & B [employer] MEDEX SUPPLEMENT MEDICARE PART A & B [employer] MEDEX SUPPLEMENT MEDICARE PART A & B [employer] MEDEX SUPPLEMENT MEDICARE PART A & B [place] [employer] MEDEX SUPPLEMENT MEDICARE PART A & B Care Teams Medical Instrument Technician Relationship Specialty Start Date End Date Giovanni Burnette MD [address] [place] [address] [place] [address] PCP - General Internal Medicine 03/15/20 Additional Source Comments The information contained in this document represents components of the legal health record. It is not the complete legal health record.[facility]
--- OUTSIDE RECORDS SUMMARY | 2025-02-17 09:36 | XMS_ITS | Patient Health Record ---
Author Organization [facility] Address [address] [place] [id number] Care Team Providers Care Brim Curler Name Role Phone Vasile BEGUM Hidalgo Primary Care Provider Unava Everton Keyes Unavailable [phone] Allergies Allergen (clinical drug ingredient) Drug/Non Drug Allergy documented on EMR Reaction Allergy Type Onset Date Status codeine Codeine Sulfate Unknown Drug Allergy A ctive meperidine Demerol nausea and vomiting Drug Allergy Active oxycodone OxyContin Unknown Drug Allergy Active Reason For Referral No Information Medications Medication SIG (Take, Route, Frequency, Duration) Notes Start Date End Date Status Trulicity 1.5 MG/0.5ML Solution Pen-injector Subcutaneous; Duration: 28 She takes this on Sundays Active amLODIPine Besylate 10 MG Tablet 1 tablet Orally Once a day Active Levothyroxine Sodium 112 MCG Tablet Oral; Duration: 90 Active Vitamin D Active metFORMIN HCl ER 500 MG Tablet Extended Release 24 Hour 2 tablet with evening meal orally twice a day Active Lisinopril 40 MG Tablet 1 tablet Orally Once a day Active Simvastatin 5 MG Tablet 1 tablet in the evening Orally Once a day Active Colace 100 MG Capsule 1 capsule as neede d Orally Once a day; Duration: 30 day(s) Active Vitamin B Complex - Capsule as directed Orally Active Immunizations Vaccine Route Administration Date Status Comme nts Influenza Unknown 12/26/2015 Administered Social History Social History Additional Details Category Social Info Options Details Miscellaneous: Marital status: Occupation: Works part-time 2 days/week--[employer]/ retired Section Notes: Nonsmoker; no sig alcohol Nonsmoker; no sig alcohol Problems Problem Type SNOMED Code ICD Code Onset Dates Problem Status W/U Status Risk Notes Problem Rectal bleeding (34865587) Rectal bleeding (K62.5) Active confirmed Problem Screening for malignant neoplasm of colon (332858366) Encounter for screening for malignant neoplasm of colon (Z12.11) Active confirmed Problem Diverticular disease of colon (578912164) Diverticulosis of large intestine without perforation or abscess without bleeding (K57.30) Active confirmed Problem Screening for malignant neoplasm of rectum (231241194) Encounter for screening for malignant neoplasm of rectum (Z12.12) Active confirmed Problem Preprocedural examination (425227481150566) Preprocedural examination (Z01.818) Active confirmed Problem Constipation (66207614) Constipation, unspecified constipation type (K59.00) Active confirmed Plan Of Treatment Future Test Test Name Order Date COLONOSCOPY 02/07/2016 COLONOSCOPY 12/06/2022 Insurance Providers Payer Name Payer Address Payer Phone Subscriber Number Group Number Insured Name Patient Relationship to Insured Coverage Start Date Coverage End Date MEDICARE OF [place] [address] [place] [address] [phone] [id number] JOAN WORLEY Self - patient is the insured MED[employer] ATTN CLAIMS [address] [place] [phone] [id number] JOAN WORLEY Self - patient is the insured Medical [...]
== END 2025-02-17 09:47 | disposition home or self-care (01) ==
LOC: HO.HMCH 08:56
PROVIDERS: PCP Internal Medicine; Visit Provider Internal Medicine
DX: E11.9 Type 2 diabetes mellitus without complications (principal); J44.9 Chronic obstructive pulmonary disease, unspecified; E66.9 Obesity, unspecified; Z68.35 Body mass index [BMI] 35.0-35.9, adult; I10 Essential (primary) hypertension; E78.00 Pure hypercholesterolemia, unspecified; E89.0 Postprocedural hypothyroidism; Z85.850 Personal history of malignant neoplasm of thyroid; G47.33 Obstructive sleep apnea (adult) (pediatric); M85.89 Other specified disorders of bone density and structure, multiple sites; E55.9 Vitamin D deficiency, unspecified; M17.12 Unilateral primary osteoarthritis, left knee

== ENCOUNTER → 2025-02-17 08:55 | Outpatient (BNVA) | payer MEDICARE, SELFPAY | PROVIDERS: PCP Internal Medicine; Visit Provider Internal Medicine | DX: I10 Essential (primary) hypertension (principal); E11.9 Type 2 diabetes mellitus without complications; E78.00 Pure hypercholesterolemia, unspecified; E89.0 Postprocedural hypothyroidism; J44.9 Chronic obstructive pulmonary disease, unspecified; G47.33 Obstructive sleep apnea (adult) (pediatric); M85.89 Other specified disorders of bone density and structure, multiple sites; E55.9 Vitamin D deficiency, unspecified; M17.12 Unilateral primary osteoarthritis, left knee; E66.9 Obesity, unspecified; Z85.850 Personal history of malignant neoplasm of thyroid; Z13.31 Encounter for screening for depression; Z13.39 Encounter for screening examination for other mental health and behavioral disorders | CPT/HCPCS: 96127; 99212 ==